=== PATIENT | male | born 1945 | race Caucasian/White ===

== ENCOUNTER 2020-02-22 13:42 | Outpatient (REF) | payer MEDICARE, SELFPAY ==
[2020-02-22 16:38] LABS: Estimated Average Glucose 151 mg/dL; Hemoglobin A1c % 6.9 %
[2020-02-22 16:52] LABS: Alanine Aminotransferase 54 U/L (0-40); Albumin Level 4.6 g/dL (3.5-5.0); Alkaline Phosphatase 91 U/L (39-117); Anion Gap 16 (12-20); Aspartate Amino Transferase 46 U/L (5-37); Bilirubin Total 0.8 mg/dL (0.0-1.0); Blood Urea Nitrogen 16 mg/dL (9-16); Carbon Dioxide 25 mmol/L (22-29); Chloride 100 mmol/L (96-108); Cholesterol 217 mg/dL; Estimated Glomerular Filt Rate > 60; Glucose Fasting 128 mg/dL (60-99); HDL Cholesterol 35 mg/dL; LDL Cholesterol Calculated 129 mg/dl; Potassium 4.2 mmol/l (3.3-5.1); Sodium 137 mmol/L (135-145); Total Protein 7.3 g/dL (6.5-8.0); Triglycerides 266 mg/dL
[2020-02-22 17:15] LABS: Microalbum/Creatinine Ratio Ur 36.5 ug/mg cr
[2020-02-22 18:41] LABS: PSA,Total (Free>4and<10) 6.67 ng/mL (0.00-4.00)
[2020-02-25 19:11] LABS: Free Prostate Spec Ag 1.8 ng/mL; Percent Free Prostate Spec Ag 25 % (calc) (>25); Prostate Specific Ag Total 7.1 ng/mL (< OR = 4.0)
== END 2020-02-22 13:43 | disposition home or self-care (01) ==
LOC: HO.HMGCLDS 13:42
PROVIDERS: PCP Internal Medicine; Visit Provider Internal Medicine
DX: E74.39 Other disorders of intestinal carbohydrate absorption (principal); R97.20 Elevated prostate specific antigen [PSA]; Z12.5 Encounter for screening for malignant neoplasm of prostate
CPT/HCPCS: 80053; 80061; 82043; 83036; 84153; 84154

== ENCOUNTER 2020-11-25 11:15 | Outpatient (REF) | payer MEDICARE, SELFPAY ==
--- NOTE | ~2020-11-25 | XR_ITS ---
EXAMINATION: XR SHOULDER, RIGHT XR SHOULDER, LEFT CLINICAL INFORMATION: Polymyalgia rheumatica. COMPARISON: None. TECHNIQUE: AP, Grashey, scapular Y, and axillary views of the right shoulder. AP, Grashey, and scapular Y views of the left shoulder. FINDINGS: Right Shoulder: Mild elevation of the right humeral head, which could indicate an underlying rotator cuff tear. Moderate acromioclavicular osteoarthritis with lateral subacromial spurring. Mild glenohumeral joint space narrowing with small marginal osteophytes. No osseous erosion. No acute fracture. Left Shoulder: Left shoulder arthroplasty. No evidence of hardware complication. Elevation of the humeral head, consistent with an underlying rotator cuff tendon tear. Moderate acromioclavicular osteoarthritis. XR/XR shoulder RT min 2V IMPRESSION: RIGHT SHOULDER: Moderate acromioclavicular osteoarthritis with subacromial spurring. Mild glenohumeral osteoarthritis. Elevation of the humeral head indicating an underlying rotator cuff tendon tear. LEFT SHOULDER: Left shoulder arthroplasty without evidence of hardware complication. Elevation of the humeral head consistent with an underlying rotator cuff tendon tear.
--- NOTE | ~2020-11-25 | XR_ITS ---
EXAMINATION: XR CERVICAL SPINE CLINICAL INFORMATION: Polymyalgia rheumatica. COMPARISON: None. TECHNIQUE: 3 views of the cervical spine were obtained. FINDINGS: The cervical lordosis is maintained. No acute fracture or subluxation. No loss of vertebral body height. Loss of intervertebral disc height with endplate osteophytes throughout the cervical spine, most prominent at C3-C4. Mild multilevel bilateral facet arthropathy. Normal atlantoaxial alignment. Unremarkable prevertebral soft tissues. XR/XR cervical spine 3V IMPRESSION: Prominent multilevel degenerative disc disease, most severe at C3-C4. Multilevel bilateral facet arthropathy.
--- NOTE | ~2020-11-25 | XR_ITS ---
EXAMINATION: XR SHOULDER, RIGHT XR SHOULDER, LEFT CLINICAL INFORMATION: Polymyalgia rheumatica. COMPARISON: None. TECHNIQUE: AP, Grashey, scapular Y, and axillary views of the right shoulder. AP, Grashey, and scapular Y views of the left shoulder. FINDINGS: Right Shoulder: Mild elevation of the right humeral head, which could indicate an underlying rotator cuff tear. Moderate acromioclavicular osteoarthritis with lateral subacromial spurring. Mild glenohumeral joint space narrowing with small marginal osteophytes. No osseous erosion. No acute fracture. Left Shoulder: Left shoulder arthroplasty. No evidence of hardware complication. Elevation of the humeral head, consistent with an underlying rotator cuff tendon tear. Moderate acromioclavicular osteoarthritis. XR/XR shoulder LT min 2V IMPRESSION: RIGHT SHOULDER: Moderate acromioclavicular osteoarthritis with subacromial spurring. Mild glenohumeral osteoarthritis. Elevation of the humeral head indicating an underlying rotator cuff tendon tear. LEFT SHOULDER: Left shoulder arthroplasty without evidence of hardware complication. Elevation of the humeral head consistent with an underlying rotator cuff tendon tear.
[2020-11-25 13:59] LABS: MANUAL DIFF FLAG NO
[2020-11-25 14:03] LABS: Basophils Percent Auto 0.5 % (0-2); Eosinophils Absolute Auto 0.2 X10*3/uL (0.0-0.4); Eosinophils Percent Auto 1.9 % (0-4); Hematocrit 47.2 % (42-52); Hemoglobin 16.1 g/dl (14.0-18.0); Imm Gran Abs Auto 0.03 X10*3/uL (0.00-0.03); Imm Gran Pct Auto 0.4 % (0.0-0.4); Lymphocytes Absolute Auto 1.9 X10*3/uL (1.2-4.9); Lymphocytes Percent Auto 22.9 % (20-40); Mean Corpuscular HGB Conc 34.1 g/dl (31.0-36.0); Mean Corpuscular Hemoglobin 30.3 pg (27.0-33.0); Mean Corpuscular Volume 88.7 fL (80-98); Mean Platelet Volume 10.1 fL (9.4-12.4); Monocytes Absolute Auto 0.6 X10*3/uL (0.1-1.2); Monocytes Percent Auto 7.4 % (2-11); Neutrophils Absolute Auto 5.7 X10*3/uL (2.0-8.3); Neutrophils Percent Auto 66.9 % (45-73); Platelet Count 274 X10*3/uL (160-400); Red Blood Count 5.32 X10*6/uL (4.60-5.80); Red Cell Distribution Width 12.3 % (11.0-16.0); White Blood Count 8.5 X10*3/uL (4.8-10.8)
[2020-11-25 14:46] LABS: Erythrocyte Sedimentation Rate 14 MM/HR (0-15)
[2020-11-25 14:49] LABS: Alanine Aminotransferase 38 U/L (0-40); Albumin Level 4.8 g/dL (3.5-5.0); Alkaline Phosphatase 100 U/L (39-117); Anion Gap 18 (12-20); Aspartate Amino Transferase 37 U/L (5-37); Bilirubin Total 0.5 mg/dL (0.0-1.0); Blood Urea Nitrogen 19 mg/dL (9-16); Calcium 10.1 mg/dL (8.4-10.2); Carbon Dioxide 21 mmol/L (22-29); Chloride 104 mmol/L (96-108); Estimated Glomerular Filt Rate > 60; Glucose Random 157 mg/dL (60-115); Potassium 4.2 mmol/L (3.3-5.1); Sodium 139 mmol/L (135-145); Total Protein 7.7 g/dL (6.5-8.0)
== END 2020-11-25 11:16 | disposition home or self-care (01) ==
LOC: HO.HMGCX 11:15
PROVIDERS: PCP Internal Medicine; Visit Provider Internal Medicine
DX: M35.3 Polymyalgia rheumatica (principal)
CPT/HCPCS: 36415; 72040; 73030; 80053; 85025; 85652; 86140

== ENCOUNTER 2021-01-01 08:17 | Outpatient (REF) | payer MEDICARE, SELFPAY ==
--- NOTE | ~2021-01-01 | XR_ITS ---
EXAMINATION: XR PELVIS CLINICAL INFORMATION: Hip pain COMPARISON: None TECHNIQUE: AP view of the pelvis. FINDINGS: Bone alignment is normal. No fracture or dislocation is seen. There is bilateral hip arthritis with joint space narrowing and osteophyte formation, left greater than right. Bones of the pelvis are unremarkable. There are degenerative changes of the lower lumbar spine. There is question of soft tissue calcifications over the the lower midline pelvis-pubic symphysis region. Soft tissues are otherwise unremarkable. XR/XR pelvis 1-2V IMPRESSION: Bilateral hip arthritis.
== END 2021-01-01 08:18 | disposition home or self-care (01) ==
LOC: HO.HOSX 08:17
PROVIDERS: Visit Provider Orthopaedic Surgery
DX: M54.16 Radiculopathy, lumbar region (principal); M12.811 Other specific arthropathies, not elsewhere classified, right shoulder; M12.812 Other specific arthropathies, not elsewhere classified, left shoulder
CPT/HCPCS: 72170; 99202

== ENCOUNTER 2022-01-20 14:27 | Outpatient (REF) | payer MEDICARE, SELFPAY ==
[2022-01-20 16:47] LABS: MANUAL DIFF FLAG NO
[2022-01-20 16:54] LABS: Basophils Percent Auto 0.5 % (0-2); Eosinophils Absolute Auto 0.2 X10*3/uL (0.0-0.4); Eosinophils Percent Auto 3.2 % (0-4); Hematocrit 47.5 % (42.0-52.0); Hemoglobin 16.4 g/dl (14.0-18.0); Imm Gran Abs Auto 0.02 X10*3/uL (0.00-0.03); Imm Gran Pct Auto 0.3 % (0.0-0.4); Lymphocytes Absolute Auto 2.2 X10*3/uL (1.2-4.9); Mean Corpuscular HGB Conc 34.5 g/dl (31.0-36.0); Mean Corpuscular Hemoglobin 30.4 pg (27.0-33.0); Mean Corpuscular Volume 88.1 fL (80.0-98.0); Mean Platelet Volume 10.3 fL (9.4-12.4); Monocytes Absolute Auto 0.5 X10*3/uL (0.1-1.2); Monocytes Percent Auto 7.2 % (2-11); Neutrophils Absolute Auto 4.5 x10*3/uL (2.0-8.3); Neutrophils Percent Auto 59.8 % (45-73); Platelet Count 212 X10*3/uL (160-400); Red Blood Count 5.39 X10*6/uL (4.60-5.80); Red Cell Distribution Width 12.7 % (11.0-16.0); White Blood Count 7.5 X10*3/uL (4.8-10.8)
[2022-01-20 17:06] LABS: Alanine Aminotransferase 39 U/L (0-40); Albumin Level 4.5 g/dL (3.5-5.0); Alkaline Phosphatase 111 U/L (39-117); Anion Gap 18 (12-20); Aspartate Amino Transferase 43 U/L (5-37); Bilirubin Total 0.7 mg/dL (0.0-1.0); Blood Urea Nitrogen 10 mg/dL (9-16); Calcium 9.9 mg/dL (8.4-10.2); Carbon Dioxide 23 mmol/L (22-29); Chloride 100 mmol/L (96-108); Cholesterol 212 mg/dL; Estimated Glomerular Filt Rate > 60; Glucose Fasting 137 mg/dL (60-99); HDL Cholesterol 35 mg/dL; LDL Cholesterol Calculated 117 mg/dl; Potassium 4.1 mmol/L (3.3-5.1); Sodium 137 mmol/L (135-145); Total Protein 7.2 g/dL (6.5-8.0); Triglycerides 303 mg/dL
[2022-01-20 17:30] LABS: Thyroid Stimulating Hormone 1.27 uIU/mL (0.32-4.0); Vitamin D 25-OH Total 37.1 ng/mL (>30)
== END 2022-01-20 14:28 | disposition home or self-care (01) ==
LOC: HO.HMGCLDS 14:27
PROVIDERS: PCP Internal Medicine; Visit Provider Internal Medicine
DX: I48.0 Paroxysmal atrial fibrillation (principal); E66.09 Other obesity due to excess calories
CPT/HCPCS: 36415; 80053; 80061; 82306; 84443; 85025

== ENCOUNTER 2023-07-29 14:48 | Outpatient (REF) | payer MEDICARE, SELFPAY ==
[2023-07-29 16:06] LABS: MANUAL DIFF FLAG NO
[2023-07-29 16:30] LABS: Basophils Percent Auto 0.3 % (0-2); Eosinophils Absolute Auto 0.2 X10*3/uL (0.0-0.4); Eosinophils Percent Auto 2.6 % (0-4); Hematocrit 49.7 % (42.0-52.0); Hemoglobin 17.2 g/dl (14.0-18.0); Imm Gran Abs Auto 0.03 X10*3/uL (0.00-0.03); Imm Gran Pct Auto 0.4 % (0.0-0.4); Lymphocytes Percent Auto 27.4 % (20-40); Mean Corpuscular HGB Conc 34.6 g/dl (31.0-36.0); Mean Corpuscular Hemoglobin 29.9 pg (27.0-33.0); Mean Corpuscular Volume 86.4 fL (80.0-98.0); Mean Platelet Volume 10.5 fL (9.4-12.4); Monocytes Absolute Auto 0.5 X10*3/uL (0.1-1.2); Monocytes Percent Auto 6.9 % (2-11); Neutrophils Absolute Auto 4.5 x10*3/uL (2.0-8.3); Neutrophils Percent Auto 62.4 % (45-73); Platelet Count 200 X10*3/uL (160-400); Red Blood Count 5.75 X10*6/uL (4.60-5.80); Red Cell Distribution Width 12.9 % (11.0-16.0); White Blood Count 7.2 X10*3/uL (4.8-10.8)
[2023-07-29 16:40] LABS: Appearance Urine Clear; Color Urine Yellow; Glucose Urine UA Negative (Negative); Leukocyte Esterase Urine Negative (Negative); Nitrite Urine Negative (Negative); PH 5.5 (5.0-9.0); Specific Gravity - Urine 1.025 (1.005-1.025); UMIC TRIGGER UA YES; Urine Blood Negative (Negative); Urine Ketones 15 mg/dL (Negative); Urine Protein 30 (1+) mg/dL (Neg-Trace)
[2023-07-29 16:43] LABS: Bacteria Urine None Seen (None Seen); Hyaline Casts Urine 0-2 /LPF (0-2); RBC Urine 0-2 /HPF (0-2); WBC Urine 0-5 /HPF (0-5)
[2023-07-29 17:01] LABS: Estimated Average Glucose 194 mg/dL; Hemoglobin A1c % 8.4 % (<6.0)
[2023-07-29 17:29] LABS: PSA,Total (Free>4and<10) 6.06 ng/mL (0.00-4.00)
[2023-07-29 17:30] LABS: Alanine Aminotransferase 33 U/L (0-40); Albumin Level 4.4 g/dL (3.5-5.0); Alkaline Phosphatase 87 U/L (39-117); Anion Gap 11 (12-20); Aspartate Amino Transferase 39 U/L (5-37); Blood Urea Nitrogen 12 mg/dL (9-16); Calcium 9.4 mg/dL (8.4-10.2); Carbon Dioxide 26 mmol/L (22-29); Chloride 106 mmol/L (96-108); Cholesterol 203 mg/dL (<200); Estimated Glomerular Filt Rate > 60; Glucose Fasting 146 mg/dL (60-99); HDL Cholesterol 38 mg/dL (>40); LDL Cholesterol Calculated 136 mg/dL (<100); Potassium 3.4 mmol/L (3.3-5.1); Sodium 140 mmol/L (135-145); Thyroid Stimulating Hormone 1.32 uIU/mL (0.32-4.0); Total Protein 7.2 g/dL (6.5-8.0); Triglycerides 146 mg/dL (<150); Vitamin D 25-OH Total 43.3 ng/mL (>30)
[2023-07-29 17:38] LABS: Creatinine Urine 163.97 mg/dL; Microalbum/Creatinine Ratio Ur 66.4 ug/mg cr (<30)
[2023-08-01 10:54] LABS: Free Prostate Spec Ag 1.6 ng/mL; Percent Free Prostate Spec Ag 30 % (calc) (>25); Prostate Specific Ag Total 5.4 ng/mL (< OR = 4.0)
== END 2023-07-29 14:49 | disposition home or self-care (01) ==
LOC: HO.HMGCLDS 14:48
PROVIDERS: PCP Internal Medicine; Visit Provider Internal Medicine
DX: Z12.5 Encounter for screening for malignant neoplasm of prostate (principal); E11.65 Type 2 diabetes mellitus with hyperglycemia; E66.09 Other obesity due to excess calories; R97.20 Elevated prostate specific antigen [PSA]; I48.0 Paroxysmal atrial fibrillation
CPT/HCPCS: 36415; 80053; 80061; 81001; 82043; 82306; 82570; 83036; 84153; 84154; 84443; 85025

== ENCOUNTER 2023-10-19 11:20 | Outpatient (AMB) | payer MEDICARE, SELFPAY ==
--- NOTE | 2023-10-19 11:28 | MHC.OFFVIS ---
Intake Visit Reasons: elevated PSA Intake Note: Patient is present for elevated PSA Urology Medication:none Antibiotic Allergy:none Blood Thinner:none Transformation Lead Required: No Allergies adhesive tape Adverse Reaction (Verified 10/19/23 14:53) blisters Medication List - Last Reconciled 10/19/23 by ROSA M Lorenzo- lisinopril 10 mg PO DAILY naproxen sodium (Aleve) 220 mg PO Q8H HPI Comments Details: Cristiano is a 77-year-old male patient of Dr. Us. He has a past medical history of enlarged prostate, bladder stones, nephrolithiasis, and hypertension. He presents to the office today as a new patient for his ongoing urological issues. He reports previously following up with [facility] for many years and has a longstanding history of multiple surgical interventions for his prostate, nephrolithiasis, as well as his bladder stones. He reports having had a previous TURP with Dr. Reyna approximately 4-5 years ago at which time prostatic tissue was sent for testing and he was told tissue was benign and he did not have prostate cancer. He reports most recently having a surgical intervention for bladder stones. He discusses his frustration with the office and always seeing mid-level providers. He discusses at length his preference in a medical provider. He currently denies any bothersome urinary issues or concerns. He discusses wanting to establish urological care here with Dr. Kee as well as Dr. Bergman. Discussed obtaining retroperitoneal ultrasound for further assessment evaluation given patient's longstanding history of bladder stones, enlarged prostate, and nephrolithiasis. He is agreeable. In office urinalysis results reviewed with the patient today. He otherwise offers no other issues or concerns at this time. In review of patient's chart it appears PSAs are as follows: 11/28 7.7, 02/28 6.7 % free PSA 25%, 02/28 7.1, 08/02 6.1, 08/02 5.4 % free PSA 30%. Previous urology records reviewed it appears patient was last seen by [facility] October of 2022. He underwent a TURP and laser cystolitholapaxy in 2014 and was found in 2021 have recurrent bladder calculi and was to undergo laser cystolitholapaxy but he did not show for his appointment. He then presented to [facility] with gross hematuria and difficulty voiding at which time he was brought to the OR by Dr. Mathews and found to have multiple stones in his prostatic urethra and bladder that were causing an obstruction. They were removed by a laser cystolitholapaxy June of 2022. The prostatic urethra was widely patent and no tumors were seen on cystoscopy. Previous urological surgical history includes a cystoscopy with fragmentation of bladder calculus October of 2014, therapeutic cystoscopy with ureteroscopy and manipulation of calculus on the right September of 2009, and transurethral resection of the prostate October of 2014 with benign prostate tissue. [facility] Medical History Hypertension Surgical History (Updated 01/01/21 @ 09:52 by Julissa Escalante CMA) History of prostate surgery Social History (Updated 01/01/21 @ 09:52 by Julissa Escalante CMA) Current occupational status: retired Review of Systems Const All systems reviewed & are unremarkable except as noted in HPI and below Physical Exam Const General: cooperative, healthy appearing, comfortable, no acute distress, well developed, alert and awake Orientation/consciousness: patient oriented x3 Limitations: no limitations HEENT Head: Yes normal to inspection, Yes normocephalic and Yes atraumatic Ears: hearing grossly normal bilaterally Eyes General: appearance normal, both eyes and all related structures Neck Neck: Yes normal visual inspection and Yes trachea midline Chest Chest palpation & inspection: normal inspection of the chest Resp Effort & Inspection: normal respiratory effort and able to speak in complete sentences Cardio Rate: regular rate GI Inspection: Yes normal to inspection General: Yes no CVA tenderness Back/Spine/Pelvis Back: no CVA tenderness Skin General skin exam: no rashes or lesions noted Neuro General: patient oriented x3 Extrem General: Yes normal to inspection Psych Appearance: grossly normal and well kempt Mental Status: mental status grossly normal Speech and movement: Normal speech and movement present and Clear speech present Affect: normal affect Attitude: cooperative Thought process: Normal thought process present Thought content: Normal thought content present Insight: Fair insight present (Psych) Judgement: Fair judgement present (Psych) Results AMB Urinalysis, Automated UA Leukoctes 0 Tavon/uL Last Edit by SOURAV Forbes on 10/19/23 11:42 UA Nitrite Negative Last Edit by SOURAV Forbes on 10/19/23 11:42 UA Urobilinogen 0.2 mg/dL Last Edit by SOURAV Forbes on 10/19/23 11:42 UA Protein 30 mg/dL Last Edit by Pierre [facility]te [facility] on 10/19/23 11:42 UA pH 5.5 Last Edit by Pierre Whyte [facility] on 10/19/23 11:42 UA Blood 0 Mk/uL Last Edit by Pierre Whyte [facility] on 10/19/23 11:42 UA Specific Lou[place] 1.025 Last Edit by Pierre Whyte [facility] on 10/19/23 11:42 UA Ketone Positive Last Edit by Pierre Whyte [facility] on 10/19/23 11:42 UA Bilirubin 0 mg/dL Last Edit by Pierre Whyte [facility] on 10/19/23 11:42 UA Glucose 0 mg/dL Last Edit by Pierre Whyte [facility] on 10/19/23 11:42 Results Reviewed Results Reviewed: Laboratory Last Values Urine pH (Auto) 5.5 10/19/23 11:41 Specific Louann (Auto) 1.025 10/19/23 11:41 Urine Protein (Auto) 30 mg/dL 10/19/23 11:41 Glucose (UA)(Auto) 0 mg/dL 10/19/23 11:41 Urine Ketones (Auto) Positive 10/19/23 11:41 Urine Blood (Auto) 0 Mk/uL 10/19/23 11:41 Urine Nitrite (Auto) Negative 10/19/23 11:41 Urine Bilirubin (Auto) 0 mg/dL 10/19/23 11:41 Urine Urobilinogen (Auto) 0.2 mg/dL 10/19/23 11:41 Leukocyte Esterase (Auto) 0 Tavon/uL 10/19/23 11:41 Assessment & Plan Assessment & Plan (1) Enlarged prostate: Code(s): N40.0 - Benign prostatic hyperplasia without lower urinary tract symptoms Category: Medical (2) Bladder stones: Code(s): N21.0 - Calculus in bladder Category: Medical (3) Nephrolithiasis: Code(s): N20.0 - Calculus of kidney Category: Medical Plan In office urinalysis results reviewed with the patient today; as noted above. Previous urological notes were reviewed. Will obtain retroperitoneal ultrasound for further assessment evaluation. Discussed at length potential causes for elevated PSA as well as further workup. Discussed possible finasteride in the setting of enlarged prostate. Patient currently denies any bothersome urinary issues or concerns. He reports be happy with current voiding parameters. Follow-up in 1-3 months with imaging to be completed prior; or sooner with any issues, concerns, and or questions. Orders: Orders AMB Urinalysis Automated Today Z13.9 - Encounter for screening, unspecified US retroperitoneal comp Today N20.0 - Calculus of kidney, N21.0 - Calculus in bladder, N40.0 - Benign prostatic hyperplasia without lower urinary tract symptoms Patient Instructions: The patient had an opportunity to ask questions regarding the treatment plan. All questions were answered. Physical exam, labs, and imaging were discussed and reviewed in detail. As well as risks, benefits, and discussion of treatment choices. No major barriers to understanding were identified. The patient expressed understanding and agreement with the above treatment plan. The patient was made aware they should contact our office by phone for worsening of their current condition, the appearance of new symptoms, or with any questions or concerns. Compliance is encouraged with any medications and follow up testing that is ordered. It is a privilege to be allowed the opportunity to participate in? your urological care.? Again, if you have any questions or concerns If you have any questions or concerns please do not hesitate to contact me. The office is [phone]. This note is constructed using voice recognition software. While every effort has been made to ensure accuracy deck officer errors may have been included. Yours sincerely, MAMADOU Lorenzo Coding Level of Care Code New Pt Level 4 (87152) Diagnoses Enlarged prostate N40.0 Bladder stones N21.0 Nephrolithiasis N20.0
== END 2023-10-19 12:04 | disposition home or self-care (01) ==
PROVIDERS: PCP Internal Medicine; Visit Provider Nurse Practitioner Family
DX: N40.0 Benign prostatic hyperplasia without lower urinary tract symptoms (principal); N21.0 Calculus in bladder; N20.0 Calculus of kidney; Z13.9 Encounter for screening, unspecified
CPT/HCPCS: 99204

== ENCOUNTER → 2023-10-19 11:20 | Outpatient (BNVA) | payer MEDICARE, SELFPAY | PROVIDERS: PCP Internal Medicine; Visit Provider Nurse Practitioner Family | DX: N40.0 Benign prostatic hyperplasia without lower urinary tract symptoms (principal); N21.0 Calculus in bladder; N20.0 Calculus of kidney | CPT/HCPCS: 81003; 99202 ==

== ENCOUNTER 2023-11-03 13:53 | Outpatient (REF) | payer MEDICARE, SELFPAY ==
[2023-11-03 16:16] LABS: Appearance Urine Clear; Color Urine Yellow; Glucose Urine UA Negative (Negative); Leukocyte Esterase Urine Negative (Negative); Nitrite Urine Negative (Negative); PH 5.5 (5.0-9.0); Specific Gravity - Urine 1.015 (1.005-1.025); Urine Blood Negative (Negative); Urine Ketones Trace mg/dL (Negative); Urine Protein Negative (Neg-Trace)
[2023-11-03 16:19] LABS: Bacteria Urine None Seen (None Seen); Hyaline Casts Urine 0-2 /LPF (0-2); RBC Urine 0-2 /HPF (0-2); Squamous Epithelial Cell Urine 0-2 /HPF (0-2); WBC Urine 0-5 /HPF (0-5)
[2023-11-03 16:30] LABS: Alanine Aminotransferase 29 U/L (0-40); Albumin Level 4.3 g/dL (3.5-5.0); Alkaline Phosphatase 75 U/L (39-117); Anion Gap 17 (12-20); Aspartate Amino Transferase 29 U/L (5-37); Bilirubin Direct 0.3 mg/dL (0.0-0.5); Bilirubin Total 0.9 mg/dL (0.0-1.0); Blood Urea Nitrogen 12 mg/dL (9-16); Carbon Dioxide 22 mmol/L (22-29); Chloride 103 mmol/L (96-108); Cholesterol 181 mg/dL (<200); Estimated Glomerular Filt Rate > 60; Glucose Fasting 104 mg/dL (60-99); HDL Cholesterol 36 mg/dL (>40); LDL Cholesterol Calculated 103 mg/dL (<100); Potassium 4.1 mmol/L (3.3-5.1); Sodium 138 mmol/L (135-145); Total Protein 7.2 g/dL (6.5-8.0); Triglycerides 211 mg/dL (<150)
[2023-11-03 16:49] LABS: Estimated Average Glucose 131 mg/dL; Hemoglobin A1c % 6.2 % (<6.0)
[2023-11-03 16:55] LABS: Creatinine Urine 101.73 mg/dL; Microalbum/Creatinine Ratio Ur 29.4 ug/mg cr (<30)
== END 2023-11-03 13:54 | disposition home or self-care (01) ==
LOC: HO.HMGCLDS 13:53
PROVIDERS: PCP Internal Medicine; Visit Provider Internal Medicine
DX: E11.65 Type 2 diabetes mellitus with hyperglycemia (principal)
CPT/HCPCS: 36415; 80048; 80061; 80076; 81001; 82043; 82570; 83036

== ENCOUNTER 2023-11-15 11:21 | Outpatient (REF) | payer MEDICARE, SELFPAY ==
--- NOTE | ~2023-11-15 | US_ITS ---
EXAMINATION: US RETROPERITONEAL COMPLETE (RENAL) CLINICAL INFORMATION: Calculus of kidney. COMPARISON: None available. TECHNIQUE: Real-time imaging of the kidneys and bladder. FINDINGS: RIGHT KIDNEY: 11.3 x 5.5 x 5.8 cm (SAG x AP x TRV). The kidney is normal in size, contour, and echogenicity. Renal cortical thickness is normal. 5 mm nonobstructing mid pole calculus. No hydronephrosis. There is a 2.6 cm lower pole cyst which contains a thin avascular septation. LEFT KIDNEY: 12.4 x 4.4 x 4.7 cm (SAG x AP x TRV). The kidney is normal in size, contour, and echogenicity. Renal cortical thickness is normal. No calculi or focal parenchymal lesions. No hydronephrosis. BLADDER: Well distended and normal. Bilateral ureteral jets are demonstrated. Prevoid bladder volume is 157 mL. Postvoid bladder volume is 34.4 mL. PROSTATE GLAND: 4.6 x 4.9 x 6.2 cm, volume 74 mL. US/US retroperitoneal comp IMPRESSION: 1. 5 mm nonobstructing right renal calculus. No left-sided renal calculi. No hydronephrosis of either kidney. 2. Mildly complex 2.6 cm right renal cyst. 3. Enlarged prostate gland. 4. Prominent post void bladder residual of 35 mL. Electronically signed by: Kenny Harvey MD 12/10/2023 09:23 AM EDT Workstation: [employer]
== END 2023-11-15 11:22 | disposition home or self-care (01) ==
LOC: HO.HMGCX 11:21
PROVIDERS: PCP Internal Medicine; Visit Provider Nurse Practitioner Family
DX: N20.0 Calculus of kidney (principal); N20.1 Calculus of ureter; N40.0 Benign prostatic hyperplasia without lower urinary tract symptoms
CPT/HCPCS: 76770

== ENCOUNTER 2023-12-09 10:53 | Outpatient (REF) | payer MEDICARE, SELFPAY ==
[2023-12-09 16:14] LABS: Urine Cytology See Pathology rpt
== END 2023-12-09 10:54 | disposition home or self-care (01) ==
LOC: HO.LAB 10:53
PROVIDERS: PCP Internal Medicine; Visit Provider Urology
DX: R31.0 Gross hematuria (principal); N40.0 Benign prostatic hyperplasia without lower urinary tract symptoms; N20.0 Calculus of kidney; N21.0 Calculus in bladder
CPT/HCPCS: 81003; 88112; 99212

== ENCOUNTER 2023-12-09 10:53 | Outpatient (AMB) | payer MEDICARE, SELFPAY ==
--- NOTE | 2023-12-09 11:00 | MHC.OFFVIS ---
Intake Visit Reasons: 1m/elevated PSA/US(US 11/14) Intake Note: Patient is present for 1M F/U elevated PSA Urology Medication:none Antibiotic Allergy:none Blood Thinner:none Pill Maker Required: No Allergies adhesive tape Adverse Reaction (Verified 12/09/23 11:01) blisters HPI Comments Details: 12/09/23--Cristiano is a 78-year-old male who is here in follow-up, BPH and elevated PSA, history of renal stones and bladder stones. Reviewed PSA-07/29/2023---6.06 ng/mL. Patient had previous TURP. Cristiano states he does not have any difficulty when voiding he has had episodes of voiding blood clots. I have reviewed preliminary renal ultrasound 11/15/2023--right kidney 2.6 cm complex cyst, 5 mm stone. Estimated prostate volume 73.9. I will start finasteride 5 mg daily follow-up for office cystoscopy, urine for cytology. The patient had questions regarding his recurrent kidney stones. Discussed that I would order a 24 hour urine collection in the future for further evaluation. Review of chart: 10/19/23--Cristiano is a 77-year-old male patient of Dr. Us. He has a past medical history of enlarged prostate, bladder stones, nephrolithiasis, and hypertension. He presents to the office today as a new patient for his ongoing urological issues. He reports previously following up with [facility] for many years and has a longstanding history of multiple surgical interventions for his prostate, nephrolithiasis, as well as his bladder stones. He reports having had a previous TURP with Dr. Reyna approximately 4-5 years ago at which time prostatic tissue was sent for testing and he was told tissue was benign and he did not have prostate cancer. He reports most recently having a surgical intervention for bladder stones. He discusses his frustration with the office and always seeing mid-level providers. He discusses at length his preference in a medical provider. He currently denies any bothersome urinary issues or concerns. He discusses wanting to establish urological care here with Dr. Kee as well as Dr. Bergman. Discussed obtaining retroperitoneal ultrasound for further assessment evaluation given patient's longstanding history of bladder stones, enlarged prostate, and nephrolithiasis. He is agreeable. In office urinalysis results reviewed with the patient today. He otherwise offers no other issues or concerns at this time. In review of patient's chart it appears PSAs are as follows: 11/28 7.7, 02/28 6.7 % free PSA 25%, 02/28 7.1, 08/02 6.1, 08/02 5.4 % free PSA 30%. Previous urology records reviewed it appears patient was last seen by [facility] October of 2022. He underwent a TURP and laser cystolitholapaxy in 2014 and was found in 2021 have recurrent bladder calculi and was to undergo laser cystolitholapaxy but he did not show for his appointment. He then presented to [facility] with gross hematuria and difficulty voiding at which time he was brought to the OR by Dr. Mathews and found to have multiple stones in his prostatic urethra and bladder that were causing an obstruction. They were removed by a laser cystolitholapaxy June of 2022. The prostatic urethra was widely patent and no tumors were seen on cystoscopy. Previous urological surgical history includes a cystoscopy with fragmentation of bladder calculus October of 2014, therapeutic cystoscopy with ureteroscopy and manipulation of calculus on the right September of 2009, and transurethral resection of the prostate October of 2014 with benign prostate tissue. [facility] Medical History Hypertension Surgical History History of prostate surgery Social History Current occupational status: retired Review of Systems Const All systems reviewed & are unremarkable except as noted in HPI and below Reports no additional complaints Eyes Reports no additional complaints ENT Reports no additional complaints Card Reports no additional complaints Resp Reports no additional complaints GI Reports no additional complaints Reports as per HPI Musc Reports no additional complaints Skin/Breast Reports system reviewed and no additional complaints, except as documented Neuro Reports no additional complaints Psych Reports no additional complaints Endo Reports no additional complaints Armando/Lymph Reports no additional complaints Aller/Immun Reports no additional complaints Results AMB Urinalysis, Automated UA Leukoctes 0 Tavon/uL Last Edit by SOURAV Forbes on 12/09/23 11:36 UA Nitrite Negative Last Edit by SOURAV Forbes on 12/09/23 11:36 UA Urobilinogen 0.2 mg/dL Last [facility] on 12/09/23 11:36 UA Protein 15 mg/dL Last Edit [facility] on 12/09/23 11:36 UA pH 5.5 Last Edit by Pierre Whyte [facility] on 12/09/23 11:36 UA Blood 10 Mk/uL Last Edit by Pierre Whyte [facility] on 12/09/23 11:36 UA Specific [place] 1.030 Last Edit by Pierre Whyte [facility] on 12/09/23 11:36 UA Ketone Negative Last Edit by Pierre Whyte [facility] on 12/09/23 11:36 UA Bilirubin 0 mg/dL Last Edit by Pierre Whyte [facility] on 12/09/23 11:36 UA Glucose 0 mg/dL Last Edit by Pierre Whyte [facility] on 12/09/23 11:36 Results Reviewed Results Reviewed: Laboratory Last Values Urine pH (Auto) 5.5 12/09/23 11:35 Specific [place] (Auto) 1.030 12/09/23 11:35 Urine Protein (Auto) 15 mg/dL 12/09/23 11:35 Glucose (UA)(Auto) 0 mg/dL 12/09/23 11:35 Urine Ketones (Auto) Negative 12/09/23 11:35 Urine Blood (Auto) 10 Mk/uL 12/09/23 11:35 Urine Nitrite (Auto) Negative 12/09/23 11:35 Urine Bilirubin (Auto) 0 mg/dL 12/09/23 11:35 Urine Urobilinogen (Auto) 0.2 mg/dL 12/09/23 11:35 Leukocyte Esterase (Auto) 0 Tavon/uL 12/09/23 11:35 Assessment & Plan Assessment & Plan (1) Enlarged prostate: Code(s): N40.0 - Benign prostatic hyperplasia without lower urinary tract symptoms Category: Medical (2) Bladder stones: Code(s): N21.0 - Calculus in bladder Category: Medical (3) Nephrolithiasis: Code(s): N20.0 - Calculus of kidney Category: Medical (4) Gross hematuria: Code(s): R31.0 - Gross hematuria Category: Medical Plan Start finasteride 5 mg daily follow-up for office cystoscopy, urine for cytology. Discussed that I would order a 24 hour urine collection in the future for further evaluation. Orders: Orders AMB Urinalysis Automated 12/09/23 Z13.9 - Encounter for screening, unspecified Urine Cytology 12/09/23 R31.0 - Gross hematuria Medications: New finasteride (Proscar) 5 mg PO DAILY 30 tabs 3RF 30 days metformin 1,000 mg PO DAILY 1 tab 0RF Patient Instructions: The patient had an opportunity to ask questions regarding treatment plan. The patient expressed understanding and agreement with the above treatment plan. The patient is aware they should contact our office by phone for worsening of their current condition or the appearance of new symptoms. Compliance is encouraged with any medications and followup testing that is ordered. It is a privilege to be allowed the opportunity to participate in the urologic care of your patient. If you have any questions or concerns regarding treatment for the above conditions please do not hesitate to contact me. The office telephone contact is [phone]. This note is constructed in part using voice recognition software. While every effort has been made to ensure accuracy blocking machine operator errors may have been included. Yours sincerely, Aubree Madrid MD Coding Level of Care Code Est Pt Level 4 (71352) Diagnoses Enlarged prostate N40.0 Bladder stones N21.0 Nephrolithiasis N20.0 Gross hematuria R31.0
== END 2023-12-09 11:39 | disposition home or self-care (01) ==
PROVIDERS: PCP Internal Medicine; Visit Provider Urology
DX: N40.0 Benign prostatic hyperplasia without lower urinary tract symptoms (principal); N21.0 Calculus in bladder; N20.0 Calculus of kidney; R31.0 Gross hematuria
CPT/HCPCS: 99214

== ENCOUNTER 2024-06-06 11:33 | Outpatient (AMB) | payer MEDICARE, SELFPAY ==
--- NOTE | 2024-06-06 11:45 | A.OFFPC_ITS ---
Vital Signs 06/06/24 11:50 Height 5 ft 9.75 in Weight 204 lb BMI 29.5 BP 122/80 Blood Pressure Location Rt brachial Pulse 78 Pulse Source Pulse Oximeter Temp 97.3 F Pulse Oximetry (%) 98 Intake Visit Reasons: 3 month follow up Intake Note: no other issues Allergies adhesive tape Adverse Reaction (Verified 06/06/24 12:20) blisters Medication List - Last Reconciled 06/06/24 by Bianca Stroud PA-C apixaban 5 mg PO BID atorvastatin 40 mg PO DAILY cholecalciferol (vitamin D3) 50 mcg PO DAILY magnesium 200 mg PO DAILY metformin 1,000 mg PO BID metoprolol tartrate 25 mg PO BID vitamin B complex 1 cap PO DAILY HPI 3 month follow up HPI Details A 78-year-old male presenting for 3 month follow-up for his chronic medical conditions. Patient has a history of hypertension currently on metoprolol 25 mg daily. Patient has a history of hypercholesterolemia was being prescribed atorvastatin 40 mg 1 tablet daily although reports over the past few months has not been taking this medication. Patient reports chronic knee and lower back pain. He reports a history of renal lithiasis and ureteral stones along with BPH status post TURP procedure. Has not followed up with urology since November of 2023. Has an essential tremor that is stable at this time. Had 1 episode of paroxysmal atrial fibrillation many years ago when he had hematuria although after a follow-up EKG by Dr. Us the atrial fibrillation was not seen on EKG. Although patient reports [facility] diagnosed with atrial fibrillation he has been on metoprolol since then. Patient also on Eliquis 5 mg p.o. b.i.d.. Patient has a history of diabetes type 2 currently on metformin 1000 mg p.o. b.i.d. with an A1c level of 6.2 on 11/03/2023. Patient has a history of vitamin-D deficiency currently taking vitamin-D 50 mcg daily. Patient currently taking magnesium 200 mg daily. Patient taking vitamin-B complex daily. Patient had an elevated PSA level in July of 2023. Was not seen in follow-up for this. Patient lives alone. Able to perform all his ADLs. Able to drive during the night. Does not have any trouble seeing at nighttime or hearing at nighttime when he is driving. Denies any recent falls. Denies any other symptoms complaints concerns at this time. [facility] Medical History Heart murmur PSA elevation Encounter for colorectal cancer screening using Cologuard test (~08/31/22) Type 2 diabetes mellitus Paroxysmal atrial fibrillation Essential tremor Tubular adenoma BPH (benign prostatic hyperplasia) Ureteral stone History of rib fracture Lumbar herniated disc [place]-Schlatter's disease Mild hypercholesterolemia Hypertension Surgical History History of colonoscopy (~04/20/16) History of prostate surgery Social History Current occupational status: retired Physical exam (Primary Care) Vital Signs: Last Vital Signs Temp 97.3 F 06/06/24 11:50 Pulse 78 06/06/24 11:50 BP 122/80 06/06/24 11:50 Pulse Ox 98 06/06/24 11:50 Care Plan Goal for BP management: 130/80 at goal BMI result Body Mass Index 29.5 BMI Assessment/Plan discussion: High BMI High, discussed plan: lifestyle, weight reduction, dietary, physical activity and alcohol moderation Const Other: Appearance: Alert. Oriented X3. No acute distress. Head: Normal external exam. Normocephalic. Atraumatic. Eyes: Conjunctiva and sclera normal. Eyelids normal. ENT: MMM. Normal voice. Neck: Normal inspection. Neck supple. FROM. No adenopathy. Thyroid Normal. No meningeal signs. No neck mass noted. CVS: Normal heart rate and rhythm. Heart sound normal. Pulses normal throughout. Murmur was heard. No rales/gallops. Respiratory: No respiratory distress. Painless inspiration. Breath sounds normal. No wheezes/rales/rhonchi noted. Chest nontender. No crepitus is noted. No accessory muscle usage noted or decreased air movement noted. No signs of trauma. Abdomen: Soft and nontender. Nondistended. No guarding. No rigidity. Bowel sounds normal in all 4 quadrants. No distention noted. No organomegaly noted. No visible injury noted. No rebound tenderness. Back: Full range of motion noted. Skin: Skin warm and dry. Normal skin color. Normal skin turgor. No rashes/lesions/lacerations noted. Extremities: No lower extremity edema. No calf tenderness is noted. Extremities exhibit normal range of motion and nontender. Neuro: Oriented X 3. Moving all extremities. Normal steady gait. No focal neuro deficits noted. Vascular: + radial pulses b/l. Normal cap refill. No cyanosis noted. Coding Level of Care Code New Pt Level 4 (45093) Complex EM visit Add On G2211 Diagnoses Type 2 diabetes mellitus E11.9 Paroxysmal atrial fibrillation I48.0 Essential tremor G25.0 BPH (benign prostatic hyperplasia) N40.0 Lumbar herniated disc M51.26 Mild hypercholesterolemia E78.00 Hypertension I10 PSA elevation R97.20 Assessment & Plan Assessment & Plan (1) Type 2 diabetes mellitus: Code(s): E11.9 - Type 2 diabetes mellitus without complications Category: Medical Plan: Goal A1c less than 7.0. A1c on 11/03/2023 6.2. Patient currently on metformin 1000 mg p.o. b.i.d.. Condition is chronic and stable will continue to monitor and keep current regimen. (2) Paroxysmal atrial fibrillation: Code(s): I48.0 - Paroxysmal atrial fibrillation Category: Medical Plan: Patient currently on Eliquis 5 mg p.o. b.i.d., metoprolol 25 mg p.o. b.i.d.. Condition is chronic and stable continue to monitor. (3) Essential tremor: Code(s): G25.0 - Essential tremor Category: Medical Plan: Condition is chronic and stable continue to monitor (4) BPH (benign prostatic hyperplasia): Comment: s/p TURP Code(s): N40.0 - Benign prostatic hyperplasia without lower urinary tract symptoms Category: Medical Plan: Condition is chronic and stable since TURP procedure patient urinating regularly without any difficulties. Will continue to monitor (5) Lumbar herniated disc: Code(s): M51.26 - Other intervertebral disc displacement, lumbar region Category: Medical Plan: Condition is chronic and stable continue to monitor. (6) Mild hypercholesterolemia: Code(s): E78.00 - Pure hypercholesterolemia, unspecified Category: Medical Plan: LDL goal <70 due to patient has a history of diabetes. Last LDL was 104 on 11/03/2023. Patient instructed to restart his atorvastatin 40 mg daily as previously prescribed. Condition is chronic and stable continue to monitor. (7) Hypertension: Code(s): I10 - Essential (primary) hypertension Category: Medical Plan: Blood pressure goal less than 130/80. Blood pressure at goal today. Patient to continue metoprolol 25 mg p.o. b.i.d.. Condition is chronic and stable continue to monitor. (8) PSA elevation: Code(s): R97.20 - Elevated prostate specific antigen [PSA] Category: Medical Plan: Patient noted to have an elevated PSA level in July of 2023 has not followed up with this. Will refer to Urology at this time and have repeat PSA levels. Condition is chronic and stable continue to monitor. Plan For the patient's hypertension patient should continue metoprolol 25 mg p.o. b.i.d. For the patient's paroxysmal atrial fibrillation he should continue Eliquis 5 mg p.o. b.i.d. and metoprolol 25 mg p.o. b.i.d. For the patient's hyperlipidemia/hypercholesterolemia patient should continue and restart atorvastatin 40 mg daily For patient vitamin-D deficiency patient should continue vitamin-D supplement 50 mcg daily. Patient to follow-up with cardiology for murmur heard on exam today Patient to follow-up with urology for history of elevated PSA level 07/2023 Patient to have fasting labs before his next 6 month follow-up appointment Patient to follow-up in 6 months Orders: Orders Hemoglobin A1c Today Bianca Stroud PA-C Z00.00 - Encounter for general adult medical examination without abnormal findings Vitamin D 25-OH Total Today Bianca Stroud PA-C Z00.00 - Encounter for general adult medical examination without abnormal findings TSH reflex Free T4 Today Bianca Stroud PA-C Z00.00 - Encounter for general adult medical examination without abnormal findings C Reactive Protein Today Bianca Stroud PA-C Z00.00 - Encounter for general adult medical examination without abnormal findings Complete Blood Count Auto Diff Today Bianca Struod PA-C Z00.00 - Encounter for general adult medical examination without abnormal findings Comprehensive [place]. Panel Fast Today Bianca Stroud PA-C Z00.00 - Encounter for general adult medical examination without abnormal findings Lipid Panel Today Bianca Stroud PA-C Z00.00 - Encounter for general adult medical examination without abnormal findings Liver Panel Today Bianca Stroud PA-C Z00.00 - Encounter for general adult medical examination without abnormal findings Magnesium Today Bianca Stroud PA-C Z00.00 - Encounter for general adult medical examination without abnormal findings Vitamin B1 Today Bianca Stroud PA-C Z00.00 - Encounter for general adult medical examination without abnormal findings PSA,Total (Free>4and<10) Today Bianca Stroud PA-C Z00.00 - Encounter for general adult medical examination without abnormal findings Vitamin B12 and Folate Today Bianca Stroud PA-C Z00.00 - Encounter for general adult medical examination without abnormal findings Referrals Cardiology Referral Bianca Stroud PA-C E78.00 - Pure hypercholesterolemia, u nspecified, I10 - Essential (primary) hypertension, I48.0 - Paroxysmal atrial fibrillation, R01.1 - Cardiac murmur, unspecified Medications: Changed From metformin 1,000 mg PO DAILY 1 tab 0RF To metformin 1,000 mg PO BID Aubree Madrid MD
[2024-06-06 11:50] VITALS: BP 122/80; PULSE 78; TEMP 36.3; O2SAT 98; BMI 29.5
--- OUTSIDE RECORDS SUMMARY | 2024-06-06 14:32 | XMS_ITS ---
Author Organization [facility] Address [address], [place] [id number] Care Team Providers Care Retail Management Trainee Name Role Phone Serg Us DO Primary Care Provider Unavail able Serg Us Unavailable [phone] ALLERGIES No Known Allergies REASON FOR VISIT 4 month f/u, Follow up Paroxysmal atrial fibrillation, Type 2 diabetes mellitus with hyperglycemia,without long-term current use of insulin MEDICATIONS Medication SIG (Take, Route, Frequency, Duration) Notes Start Date End Date Status B Complex - 1 capsule Orally Onc e every other day Active Magnesium Citrate 200 MG 1 tablet Orally Once every other day Active Atorvastatin Calcium 40 MG 1 tablet Orally Once a day 08/05/2023 Active metFORMIN HCl 1000 MG 1 tablet with a me al Orally Twice a day 08/05/2023 Active Vitamin D 50 MCG (1999) 1 capsule Orally Once a day Active Metoprolol Tartrate 25 MG 1 tablet Orall y Twice a day Active Apixaban 5 MG 1 tablet Orally Twic e a day Not-Taking SOCIAL HISTORY Tobacco Use: Social History Observation Description Date Details (start date - stop date) Current Smoker NA - NA Sex Assigned At : Social History Observation Description Sex Assigned At Unknown Tobacco Use/Smoking Question Answer Notes Patient is a current smoker How often do you smoke cigarettes? every day How many cigarettes a day do you smoke? 6-10 How soon after you wake up d o you smoke your first cigarette? after 60 minutes Are you interested in quitting? Thinking about q uitting Additional Findings: Tobacco User Curren t cigarette smoker, not currently using another form of tobacco Alcohol Screen Question Answer Notes Did you have a drink contain ing alcohol in the past year? Yes How often did you have a dri nk containing alcohol in the past year? 2 to 4 times a month (2 points) How many drinks did you have on a typical day when you were drinking in the past year? 1 or 2 drinks (0 point) How often did you have 6 or more drinks on one occasion in the past year? Never (0 point) Points 2 Interpretation Negative VITAL SIGNS BMI 29.24 kg/m2 03/07/2024 Blood pressure systolic 124 mm Hg 03/07/20 24 Blood pressure diastolic 70 mm Hg 024 Height 69 in 03/07/2024 Weight 198 lbs 03/07/2024 Encounters Encounter Location Date Provider Diagnosis Serg Us , [address] [phone] 03/07/2024 [facility] Type 2 diabetes mellitus with hyperglycemia, without long-term current use of insulin E11.65 ; Paroxysmal atrial fibrillation I48.0 and Other obesity due to excess calories E66.09 ASSESSMENTS Encounter Date Diagnosis Assessment Notes Treatment Notes Treatment Clinical Notes 03/07/2024 Type 2 diabetes mellitus with hyperglycemia, without long-term current use of insulin (ICD-10 - E11.65) I urged Cristiano to resume taking his atorvastatin 03/07/2024 Paroxysmal atrial fibrillation (ICD-10 - I48.0) 03/07/2024 Other obesity due to excess calories (ICD-10 - E66.09) PLAN OF TREATMENT Medication Medication Name Sig Start Date Stop Date Notes B Complex - 1 capsule Orally Onc e every other day Magnesium Citrate 200 MG 1 tablet Orally Once every other day Atorvastatin Calcium 40 MG 1 tablet Orally Once a day 07/11 metFORMIN HCl 1000 MG 1 tablet with a me al Orally Twice a day 08/05/2023 Vitamin D 50 MCG (1999) 1 capsule Orally Once a day Metoprolol Tartrate 25 MG 1 tablet Orally Twice a day Treatment Notes Assessment Notes Type 2 diabetes mellitus wit h hyperglycemia, without long-term current use of insulin I urged Cristiano to resume taking his atorvastatin Next Appt Details Follow Up: 3 Months, Reason: follow up visit Progress Notes * Examination Category Sub-Category Detail Notes General Examination GENERAL APPEARANCE: in no ac nikolai distress, well developed, well nourished HEAD: normocephalic, atrau matic HEART: no murmurs, regular rate and rhythm, S1, S2 normal LUNGS: clear to auscultatio n bilaterally ABDOMEN: normal, bowel sounds present, soft, nontender, nondistended SKIN: warm and dry EXTREMITIES: no edema PSYCH: alert, oriented, cog nitive function intact
--- OUTSIDE RECORDS SUMMARY | 2024-06-06 14:32 | XMS_ITS ---
Author Organization [facility] Address [address], [place] [phone] Care Team Providers Care Bite Block Maker Name Role Phone Serg Us DO Primary Care Provider Unavail able Serg Us Unavailable [phone] REASON FOR VISIT told patient to call Encounters Encounter Location Date Provider Diagnosis [facility] [address] [place] [id number] 02/27/2024 [facility] PLAN OF TREATMENT No Information
--- OUTSIDE RECORDS SUMMARY | 2024-06-06 14:32 | XMS_ITS ---
Author Organization Serg Us DO, [facility] Address [address], [place] [id number] Care Team Providers Care Media Center Specialist Name Role Phone Serg Us DO Primary Care Provider Unavail able [facility]erg Us Unavailable [phone] REASON FOR VISIT 3 month f/u Encounters Encounter Location Date Provider Diagnosis Serg Us DO, [facility] [address] [place] [id number] 06/06/2024 Serg Us PLAN OF TREATMENT No Information
== END 2024-06-06 12:17 | disposition home or self-care (01) ==
LOC: HO.HMCSH 11:33
PROVIDERS: PCP Internal Medicine; Visit Provider Physician Assistant Medical
DX: E11.9 Type 2 diabetes mellitus without complications (principal); I48.0 Paroxysmal atrial fibrillation; G25.0 Essential tremor; N40.0 Benign prostatic hyperplasia without lower urinary tract symptoms; M51.26 Other intervertebral disc displacement, lumbar region; E78.00 Pure hypercholesterolemia, unspecified; I10 Essential (primary) hypertension; R97.20 Elevated prostate specific antigen [PSA]

== ENCOUNTER → 2024-06-06 11:33 | Outpatient (BNVA) | payer MEDICARE, SELFPAY | PROVIDERS: PCP Internal Medicine; Visit Provider Physician Assistant Medical | DX: E11.9 Type 2 diabetes mellitus without complications (principal); I48.0 Paroxysmal atrial fibrillation; G25.0 Essential tremor; N40.0 Benign prostatic hyperplasia without lower urinary tract symptoms; M51.26 Other intervertebral disc displacement, lumbar region; E78.00 Pure hypercholesterolemia, unspecified; I10 Essential (primary) hypertension; R97.20 Elevated prostate specific antigen [PSA] | CPT/HCPCS: 99202 ==

== ENCOUNTER 2024-11-09 14:19 | Outpatient (AMB) | payer MEDICARE, SELFPAY ==
--- NOTE | 2024-11-09 14:21 | A.OFFPC_ITS ---
Vital Signs 11/09/24 14:22 11/09/24 14:53 Height 5 ft 9.75 in Weight 210 lb BMI 30.3 BP 142/83 H 120/72 Respiration 16 Pulse 66 Pulse Source Pulse Oximeter Temp 97.8 F Temp Source Temporal Artery Scan Pulse Oximetry (%) 98 Oxygen Delivery Method Room Air Intake Visit Reasons: Sleep issues follow up Campus Safety Officer Required: No Accompanied by: Self / Same As Patient Allergies adhesive tape Adverse Reaction (Verified 11/09/24 16:22) blisters Medication List - Last Reconciled 11/09/24 by Bianca Stroud PA-C cholecalciferol (vitamin D3) 50 mcg PO DAILY magnesium 200 mg PO DAILY metformin 1,000 mg PO BID 90 days metoprolol tartrate 25 mg PO BID trazodone 50 mg PO BEDTIME PRN vitamin B complex 1 cap PO DAILY Tobacco use date assessed: 11/09/24 Fall risk assessment: No Falls in past year Last assessed Fall Risk: 11/09/24 Dental Screening Dental Screen Date: 11/09/24 Did you have a dental visit in the last 12 months?: Yes Did you have a dental problem in the last 6 months where you did not have access to dental care?: No Was dental information given to patient?: Patient has dentist HPI Sleep issues follow up HPI Details The patient is a 79-year-old male presenting with insomnia. He reports difficulty sleeping, initially achieving only two hours of sleep at a time, which has improved to four hours with trazodone. Prior to trazodone, he experienced dizziness and fatigue due to lack of sleep. The patient has a history of hypertension, which is not regularly monitored at home. Blood pressure during the visit was recorded at 120/72 mmHg, indicating good control at this time. The patient is also managing diabetes mellitus with metformin, 1000 mg twice daily. There is a history of vitamin D deficiency and low magnesium levels, for which the patient takes supplements. The patient was previously suspected to have atrial fibrillation, but this was ruled out after further evaluation. The patient has bladder stones, which previously led to significant bleeding and a misdiagnosis of atrial fibrillation. [facility] Medical History (Updated 11/09/24 @ 16:28 by Bianca Stroud PA-C) Vitamin D deficiency Type 2 diabetes mellitus with hemoglobin A1c goal of less than 7.0% Insomnia Heart murmur PSA elevation Encounter for colorectal cancer screening using Cologuard test (~08/31/22) Type 2 diabetes mellitus Paroxysmal atrial fibrillation Essential tremor Tubular adenoma BPH (benign prostatic hyperplasia) Ureteral stone History of rib fracture Lumbar herniated disc [place]-Schlatter's disease Mild hypercholesterolemia Hypertension Surgical History History of colonoscopy (~04/20/16) History of prostate surgery Family History Father No problems noted. Mother No problems noted. Social History Housing: Other Housing Other:: mobile home Alcohol intake: current Alcohol intake frequency: does not drink Patient Tobacco Use Status: Current everyday Tobacco user Cigarettes Per Day: 10 service: No Current occupational status: retired Cognitive needs: No Hearing needs: No Vision needs: No Questionnaire PHQ-9 Over the last 2 weeks, how often have you been bothered by any of the following problems? 1. Little interest or pleasure in doing things: not at all 2. Feeling down, depressed, or hopeless: not at all 3. Trouble falling or staying asleep, or sleeping too much: not at all 4. Feeling tired or having little energy: not at all 5. Poor appetite or overeating: not at all 6. Feeling bad about yourself - or that you are a failure or have let yourself or your family down: not at all 7. Trouble concentrating on things, such as reading the newspaper or watching television: not at all 8. Moving or speaking so slowly that other people could have noticed. Or the opposite - being so fidgety or restless that you have been moving around a lot more than usual: not at all 9. Thoughts that you would be better off or of hurting yourself in some way: not at all Total score: 0 Depression Screening Interpretation: Negative Depression Screening Done: Yes 72951 - PHQ-9 Billing: Yes Source: Developed by Drs. Serg Cardoso, Cat Bautista, Hema Butt and colleagues, with an educational cecy from [employer]. Thrive Questionnaire Date Thrive assessed: 08/01/25 I am a: Patient What is your living situation today?: I have a steady place to live Within the past 12 months, did the food you bought not last and you didn't have the money to get more?: Never true Within the past 12 months, did you worry whether your food would run out before you got money to buy more?: Never true Do you have trouble paying for medicines?: No Do you have trouble getting transportation to medical appointments?: No Do you have trouble paying your heating and electricity bill?: No Do you have trouble taking care of your child, family member or friend?: No Do you have trouble with day-to-day activities such as bathing, preparing meals, shopping, managing finances, etc.?: No Are you currently unemployed and looking for a job?: No Are you interested in more education?: No Please select the resources that you would like help with: None THRIVE Score: 0 AUDIT C Alcohol Use Questionnaire (AUDIT-C) 1. How often do you have a drink containing alcohol?: Never 3. How often do you have six or more drinks on one occasion?: Never Total Score: 0 Score Reviewed/Action Taken: No ERASTO-7 AMB Questionnaire ERASTO-7 Date ERASTO - 7 assessed: 11/09/24 Feeling nervous, anxious, or on edge: 0 = Not at all Not being able to stop or control worryin = Not at all Worrying too much about different things: 0 = Not at all Trouble relaxin = Not at all Being so restless that it is hard to sit still: 0 = Not at all Becoming easily annoyed or irritable: 0 = Not at all Feeling afraid as if something awful might happen: 0 = Not at all Total ERASTO-7 score (0-4 normal; 5-9 mild; 10-14 moderate; 15-21 severe): 0 Source: Developed by Drs. Serg Cardoso, Cat Bautista, Hema Butt and colleagues, with an educational cecy from [employer]. ERASTO-7 Assessment Billing ERASTO-7 Assessment Tool: ERASTO-7 Assessment 70250 Review of Systems Const Details: - General: Reports insomnia, improved with trazodone. Denies dizziness currently. - Cardiovascular: Denies chest pain or palpitations. - Gastrointestinal: Denies abdominal pain, black or bloody stools. All systems reviewed & are unremarkable except as noted in HPI and below Physical exam (Primary Care) Vital Signs: Last Vital Signs Temp 97.8 F 11/09/24 14:22 Pulse 66 11/09/24 14:22 Resp 16 11/09/24 14:22 BP 120/72 11/09/24 14:53 Pulse Ox 98 11/09/24 14:22 Oxygen Delivery Method Room Air 11/09/24 14:22 Care Plan Goal for BP management: <140/90 at Goal BMI result Body Mass Index 30.3 BMI Assessment/Plan discussion: High BMI High, discussed plan: lifestyle, weight reduction, dietary, physical activity and alcohol moderation Tobacco/Smoking Status: Tobacco use Status Tobacco use date assessed 11/09/24 11/09/24 14:30 Patient Tobacco Use Status Current everyday Tobacco 11/09/24 14:30 PHQ-9: PHQ-9 Score PHQ-9: Total score 0 11/09/24 14:53 Depression Screening Interpretation: Negative Thrive Assessment: Date of Thrive Assessment Date Thrive assessed 11/09/24 11/09/24 14:30 Const Other: Appearance: Alert. Oriented X3. No acute distress. Head: Normal external exam. Normocephalic. Atraumatic. Eyes: Pupils are equal, round, and reactive to light. Extraocular movements intact. Conjunctiva and sclera normal. Eyelids normal. Throat: Pharynx normal. Uvula midline. Moist mucous membranes. Neck: Normal inspection. Neck supple. Full range of motion. Cardiovascular: Normal heart rate and rhythm. Heart sound normal. No murmurs noted. Blood pressure 120/72. Pulse 59. Pulses normal throughout. Respiratory: No respiratory distress. Painless inspiration. Breath sounds normal. No wheezes/rales/rhonchi noted. Chest nontender. No accessory muscle usage noted or decreased air movement noted. Back: Full range of motion noted. Skin: Skin warm and dry. Normal skin color. Normal skin turgor. No rashes/lesions/lacerations noted. Extremities: +1 lower extremity edema. Extremities exhibit normal range of motion. Neuro: Oriented X 3. No motor deficit. No sensory deficit. Reflexes normal. Coding Level of Care Code Est Pt Level 4 (90751) Complex EM visit Add On G2211 Diagnoses Insomnia G47.00 Hypertension I10 Type 2 diabetes mellitus with hemoglobin A1c goal of less than 7.0% E11.9 Vitamin D deficiency E55.9 Bladder stones N21.0 Additional Codes PHQ-9 - 03734 - PHQ-9 Billing: Yes ([id number]) ERASTO-7 Assessment Billing - ERASTO-7 Assessment Tool: ERASTO-7 Assessment 15856 ([id number]) Assessment & Plan Assessment & Plan (1) Insomnia: Code(s): G47.00 - Insomnia, unspecified Category: Medical Plan: The patient is currently being treated with trazodone, which has improved sleep duration from two to four hours per night. The patient is advised to continue trazodone and may take two pills if necessary, but should try to stick to one to avoid grogginess. (2) Hypertension: Code(s): I10 - Essential (primary) hypertension Category: Medical Plan: Blood pressure was recorded at 120/72 mmHg during the visit, indicating good control. The patient is advised to monitor blood pressure regularly at home. (3) Type 2 diabetes mellitus with hemoglobin A1c goal of less than 7.0%: Code(s): E11.9 - Type 2 diabetes mellitus without complications Category: Medical Plan: The patient is managing diabetes with metformin, 1000 mg twice daily. The patient declined an A1c test during this visit. (4) Vitamin D deficiency: Code(s): E55.9 - Vitamin D deficiency, unspecified Category: Medical Plan: The patient is taking vitamin D supplements to manage deficiency. (5) Bladder stones: Code(s): N21.0 - Calculus in bladder Category: Medical Plan: The patient has a history of bladder stones, which previously led to significant bleeding and a misdiagnosis of atrial fibrillation. Plan Plan Patient was informed and verbally consented to the use of an ambient scribe for clinic note documentation during this visit. 1. Insomnia The patient is currently being treated with trazodone, which has improved sleep duration from two to four hours per night. The patient is advised to continue trazodone and may take two pills if necessary, but should try to stick to one to avoid grogginess. 2. Hypertension Blood pressure was recorded at 120/72 mmHg during the visit, indicating good control. The patient is advised to monitor blood pressure regularly at home. 3. Diabetes Mellitus The patient is managing diabetes with metformin, 1000 mg twice daily. The patient declined an A1c test during this visit. 4. Vitamin D Deficiency The patient is taking vitamin D supplements to manage deficiency. 5. Bladder Stones The patient has a history of bladder stones, which previously led to significant bleeding and a misdiagnosis of atrial fibrillation. During the visit, we discussed the management of insomnia with trazodone, which has improved the patient's sleep duration. The patient was advised to continue trazodone and may take two pills if necessary, but should try to stick to one to avoid grogginess. We also reviewed the patient's blood pressure, which was well- controlled at 120/72 mmHg, and discussed the importance of regular monitoring at home. The patient declined an A1c test during this visit, and we confirmed that atrial fibrillation was ruled out in the past. Patient Instructions: - Continue taking trazodone as prescribed. You may take two pills if necessary, but try to stick to one to avoid grogginess. - Monitor your blood pressure regularly at home. - Follow up with your next appointment as scheduled.
[2024-11-09 14:22] VITALS: BP 142/83; PULSE 66; RESP 16; TEMP 36.6; O2SAT 98; BMI 30.3
[2024-11-09 14:53] VITALS: BP 120/72
== END 2024-11-09 15:14 | disposition home or self-care (01) ==
LOC: HO.HMCSH 14:19
PROVIDERS: PCP Internal Medicine; Visit Provider Physician Assistant Medical
DX: G47.00 Insomnia, unspecified (principal); I10 Essential (primary) hypertension; E11.9 Type 2 diabetes mellitus without complications; E55.9 Vitamin D deficiency, unspecified; N21.0 Calculus in bladder

== ENCOUNTER → 2024-11-09 14:19 | Outpatient (BNVA) | payer MEDICARE, SELFPAY | PROVIDERS: PCP Internal Medicine; Visit Provider Physician Assistant Medical | DX: I10 Essential (primary) hypertension (principal); E11.9 Type 2 diabetes mellitus without complications; E55.9 Vitamin D deficiency, unspecified; N21.0 Calculus in bladder; G47.00 Insomnia, unspecified; Z79.84 Long term (current) use of oral hypoglycemic drugs; Z13.31 Encounter for screening for depression; Z13.39 Encounter for screening examination for other mental health and behavioral disorders | CPT/HCPCS: 96127; 99212 ==

== ENCOUNTER 2024-11-16 19:18 | Inpatient (IN) | payer MEDICARE, SELFPAY ==
--- NOTE | ~2024-11-16 | CT_ITS ---
CLINICAL HISTORY: [place] hematuria with hx of bladder stone CT abdomen and pelvis without contrast Comparison: None provided Findings: Lung bases clear. No acute bony abnormalities. Degenerative change spine and hips. Hepatomegaly with fatty infiltration of the liver. No focal abnormalities in liver or spleen. Pancreas and adrenal glands unremarkable. Gallbladder within normal limits. No bilateral renal stone or hydronephrosis. No focal renal abnormality or ureteral dilation. Medial right renal cyst noted. Heterogeneous enlarged prostate gland. Prostate impresses on inferior bladder wall. Hyperdense material noted posterior inferior bladder. This may represent hemorrhage within the bladder. Bladder mass is also in the differential. Follow-up cystoscopy will likely be needed. No evidence for aortic aneurysm. No free fluid or adenopathy in the pelvis. No diverticulitis. Appendix unremarkable. Impression: Hyperdense material in the urinary bladder Differential includes hemorrhage versus mass Heterogeneous enlarged prostate impresses on bladder Cystoscopy may be of value This document has been electronically signed by: Niels Heck MD on 11/17/2024 00:18:37
--- NOTE | ~2024-11-16 | XR_ITS ---
EXAMINATION: XR CHEST CLINICAL INFORMATION: chest pain COMPARISON: None available. TECHNIQUE: Frontal view of the chest was obtained. FINDINGS: No consolidation, pleural effusion or pneumothorax. No hyperinflation. Cardiomediastinal silhouette size is normal. Multilevel thoracic and upper lumbar spondylosis. Degenerative changes in the right shoulder suggesting chronic rotator cuff tendon tear. Metallic prosthesis left humerus no fully included in the [id number]. XR/XR chest 1V IMPRESSION: No acute airspace disease. Multilevel spondylosis. Electronically signed by: Umair Conley MD 11/20/2024 03:47 PM EDT
[2024-11-16 19:27] VITALS: BP 149/92; PULSE 84; O2SAT 96
[2024-11-16 19:32] VITALS: BMI 28.4
[2024-11-16 19:39] VITALS: BP 131/80; PULSE 79; RESP 16; TEMP 36.6; O2SAT 95
[2024-11-16 20:15] LABS: Appearance Urine Hazy; PH 7.0 (5.0-9.0); Specific Gravity - Urine 1.010 (1.005-1.025); UMIC TRIGGER UACC YES
[2024-11-16 20:27] LABS: MANUAL DIFF FLAG NO
[2024-11-16 20:29] LABS: Hematocrit 45.7 % (42.0-52.0); Hemoglobin 16.0 g/dl (14.0-18.0); Imm Gran Abs Auto 0.02 X10*3/uL (0.00-0.03); Imm Gran Pct Auto 0.2 % (0.0-0.4); Lymphocytes Absolute Auto 1.8 X10*3/uL (1.2-4.9); Mean Corpuscular HGB Conc 35.0 g/dl (31.0-36.0); Mean Corpuscular Hemoglobin 30.1 pg (27.0-33.0); Mean Corpuscular Volume 86.1 fL (80.0-98.0); NRBC Abs Auto 0.000 X10*3/uL (0.0-0.012); NRBC Pct Auto 0.0 /100WBC (0.0-0.2); Platelet Count 176 X10*3/uL (160-400); Red Blood Count 5.31 X10*6/uL (4.60-5.80); White Blood Count 8.3 X10*3/uL (4.8-10.8)
--- NOTE | 2024-11-16 20:43 | ED.MALEGU ---
HPI - Male Genitourinary General Chief complaint: Urogenital-Male Stated complaint: hx bladder stones , blood in urine Time Seen by Provider: 11/16/24 20:31 Source: patient Mode of arrival: ambulatory Limitations: no limitations History of Present Illness ED Provider: HPI Narrative: Patient's with hypertension diabetes, history of kidney and bladder stone in the past had bladder stone last time was 2 years ago comes here for painless hematuria since started at 10:00 today similar to that when he had bladder stone 2 years no flank pain no fever no chills Related Data Home Medications ?Medication ?Instructions ?Recorded ?Confirmed cholecalciferol (vitamin D3) 50 50 mcg PO DAILY 06/06/24 11/09/24 mcg (2,000 unit) capsule magnesium 200 mg tablet 200 mg PO DAILY 06/06/24 11/09/24 vitamin B complex 1 cap PO DAILY 06/06/24 11/09/24 Previous Rx's ?Medication ?Instructions ?Recorded metoprolol tartrate 25 mg tablet 25 mg PO BID #180 tabs 07/23/24 metformin 1,000 mg tablet 1,000 mg PO BID 90 days #180 tabs 10/10/24 trazodone 50 mg tablet 50 mg PO BEDTIME PRN sleep #30 tabs 11/01/24 Allergies Allergy/AdvReac Type Severity Reaction Status Date / Time adhesive tape AdvReac blisters Verified 11/16/24 19:33 Review of Systems Review of Systems: Yes all other systems are reviewed and are negative PMFSH Past Medical History Medical History Vitamin D deficiency Type 2 diabetes mellitus with hemoglobin A1c goal of less than 7.0% Insomnia Heart murmur PSA elevation Encounter for colorectal cancer screening using Cologuard test (~08/31/22) Type 2 diabetes mellitus Essential tremor Tubular adenoma BPH (benign prostatic hyperplasia) Ureteral stone History of rib fracture Lumbar herniated disc [place]-Schlatter's disease Mild hypercholesterolemia Hypertension Surgical History History of colonoscopy (~04/20/16) History of prostate surgery Family History Family History Father No problems noted. Mother No problems noted. Social History Social History Housing: Other Housing Other:: mobile home Alcohol intake: current Alcohol intake frequency: does not drink Patient Tobacco Use Status: Current everyday Tobacco user Cigarettes Per Day: 10 Smoked in Last 30 Days: Yes Use of substances other than those prescribed or required for medical reasons: Yes Substance Use Type: Marijuana Advance Directives: No Advance Directives Information Provided: Yes Do you have a plan to hurt others: No Plan service: No Current occupational status: retired Cognitive needs: No Hearing needs: No Vision needs: No Physical Exam Vital Signs: Vital Signs: Last Vital Signs Temp 97.9 F 11/16/24 19:39 Pulse 79 11/16/24 19:39 Resp 16 11/16/24 19:39 BP 131/80 11/16/24 19:39 Pulse Ox 95 11/16/24 19:39 O2 Del Method Room Air 11/16/24 19:39 BMI result Body Mass Index 28.4 Appearance: Alert. Oriented X3. No acute distress. Eyes: PERRLA, No Nystagmus ENT: Pharynx normal. Oral Mucosa moist Neck: Normal inspection. Neck supple. CVS: Normal heart rate and rhythm. Pulses normal. Respiratory: No respiratory distress. Equal air entry bilateral, no wheezing/rales/rhonchi Abdomen: Soft and nontender. Bowel sounds are present, no mass palpable, no CVA tenderness Skin: Skin warm and dry. Normal skin color. Normal skin turgor. Extremities: No lower extremity edema. No calf tenderness Neuro: Oriented X 3. No motor deficit. No sensory deficit.No cerebellar signs , cranial nerves II-XII intact Medications Administered Discontinued Medications Generic Name Dose Route Start Last Admin Trade Name Freq PRN Reason Stop Dose Admin Sodium Chloride 1,000 mls @ 999 mls/hr 11/16/24 21:09 11/17/24 00:59 Ns IV 11/16/24 22:09 Infused .Q1H1M ONE Infusion Medical Decision Making Medical Decision Making [facility] Narrative: Patient with manuel hematuria with history of bladder stone CT scan showed possible bladder stone patient does not want Tolentino catheter at this time able to urinate well postviral urine in his less than 200 cc will admit patient for cystoscopy for gross hematuria Differential Diagnosis Differential Diagnoses: The differential diagnosis associated with the presentation includes Admission/Observation Consideration of admission/observation: Escalation of care including admission/observation considered Consult Healthcare Provider Management of the patient was discussed with: Hospitalist Lab Data MDM Lab Attestation statement: I reviewed the patient's lab results. 11/16/24 20:20 11/16/24 20:20 Labs: Lab Results 11/16/24 11/16/24 Range/Units 19:55 20:20 WBC 8.3 (4.8-10.8) X10*3/uL RBC 5.31 (4.60-5.80) X10*6/uL Hgb 16.0 (14.0-18.0) g/dl Hct 45.7 (42.0-52.0) % MCV 86.1 (80.0-98.0) fL MCH 30.1 (27.0-33.0) pg MCHC 35.0 (31.0-36.0) g/dl RDW 13.1 (11.0-16.0) % Plt Count 176 (160-400) X10*3/uL MPV 10.1 (9.4-12.4) fL Immature Gran % (Auto) 0.2 (0.0-0.4) % Neut % (Auto) 69.4 (45-73) % Lymph % (Auto) 21.9 (20-40) % [place] % (Auto) 6.4 (2-11) % Eos % (Auto) 1.9 (0-4) % Baso % (Auto) 0.2 (0-2) % Lymph # (Auto) 1.8 (1.2-4.9) X10*3/uL [place] # (Auto) 0.5 (0.1-1.2) X10*3/uL Eos # (Auto) 0.2 (0.0-0.4) X10*3/uL Baso # (Auto) 0.0 (0.0-0.2) X10*3/uL Abs Immat Gran (auto) 0.02 (0.00-0.03) X10*3/uL Absolute Neuts (auto) 5.8 (2.0-8.3) x10*3/uL Absolute Nucleated RBC 0.000 (0.0-0.012) X10*3/uL Nucleated RBC % (auto) 0.0 (0.0-0.2) /100WBC Sodium 138 (135-145) mmol/L Potassium 3.2 L D (3.3-5.1) mmol/L Chloride 109 H (96-108) mmol/L Carbon Dioxide 22 (22-29) mmol/L Anion Gap 10 L (12-20) BUN 10 (9-16) mg/dL Creatinine 0.68 (0.5-1.4) mg/dL Estim Creat Clear Calc 105.7 Estimated GFR > 60 Random Glucose 110 (60-115) mg/dL Calcium 7.8 L D (8.4-10.2) mg/dL Total Bilirubin 0.7 (0.0-1.0) mg/dL AST 32 (5-37) U/L ALT 30 (0-40) U/L Alkaline Phosphatase 62 (39-117) U/L Total Protein 6.0 L (6.5-8.0) g/dL Albumin 3.9 (3.5-5.0) g/dL Urine Color RED Urine Appearance Hazy Urine pH 7.0 (5.0-9.0) Ur Specific [place] 1.010 (1.005-1.025) Urine Protein See Note (Neg-Trace) mg/dL Urine Glucose (UA) See Note (Negative) mg/dL Urine Ketones See Note (Negative) mg/dL Urine Blood Large (3+) H (Negative) Urine Nitrite See Note (Negative) Ur Leukocyte Esterase See Note (Negative) Urine RBC >20 H (0-2) /HPF Urine WBC 0-5 (0-5) /HPF Ur Squamous Epith Cells 0-2 (0-2) /HPF Urine Bacteria 2+ (None Seen) Hyaline Casts 0-2 (0-2) /LPF Independent Interpretation I performed an independent interpretation of an: CT Scan Radiology Impression Discussion of test interpretation with radiology: I have reviewed the radiologist's reading. Radiologist Impression: Impression: Hyperdense material in the urinary bladder Differential includes hemorrhage versus mass Heterogeneous enlarged prostate impresses on bladder Cystoscopy may be of value This document has been electronically signed by: Niels Heck MD on 11/17/2024 00:18:37 Discharge Plan Discharge Clinical Impression: Gross hematuria, Bladder calculus Patient Disposition: Admitted As Inpatient
[2024-11-16 20:45] LABS: Alanine Aminotransferase 30 U/L (0-40); Albumin Level 3.9 g/dL (3.5-5.0); Alkaline Phosphatase 62 U/L (39-117); Anion Gap 10 (12-20); Aspartate Amino Transferase 32 U/L (5-37); Blood Urea Nitrogen 10 mg/dL (9-16); Calcium 7.8 mg/dL (8.4-10.2); Carbon Dioxide 22 mmol/L (22-29); Chloride 109 mmol/L (96-108); Creatinine Clr Calc Pharmacy 105.7; Estimated Glomerular Filt Rate > 60; Potassium 3.2 mmol/L (3.3-5.1); Sodium 138 mmol/L (135-145); Total Protein 6.0 g/dL (6.5-8.0)
[2024-11-17] VITALS (8 sets, daily range): BP systolic 135–164; BP diastolic 81–96; PULSE 66–100; RESP 15–20; TEMP 36.6–36.9; O2SAT 96–99; BMI 28.5
--- NOTE | 2024-11-17 00:30 | PM.IMHP ---
History of Present Illness Date of Service: 11/17/24 Chief Complaint: Hematuria This has a 79-year-old male with pertinent history of hypertension, njv-aqxrrkg-nyvhyztyu type 2 diabetes mellitus, mood disorder who presents to the emergency department for evaluation of hematuria. Patient states he 1st noticed bright red blood in his urine on the morning of presentation. It has been painless and constant. No abdominal discomfort. Denies fever, chills, nausea, vomiting. Does have a history of nephrolithiasis and bladder stones. Also reports blood clots in urine. No chest pain, palpitations, shortness of breath, changes in bowel habits. In the emergency department, patient was initiated on CBI. Review of Systems Constitutional: Constitutional: Reports no additional constitutional complaints Cardiovascular: Cardiovascular: Reports no additional cardiovascular complaints Respiratory: Respiratory: Reports no additional respiratory complaints Gastrointestinal: Gastrointestinal: Reports no additional gastrointestinal complaints Genitourinary: Genitourinary: Reports hematuria COUNTS INCLUDE 234 BEDS AT THE [facility] Medical History Vitamin D deficiency Type 2 diabetes mellitus with hemoglobin A1c goal of less than 7.0% Insomnia Heart murmur PSA elevation Encounter for colorectal cancer screening using Cologuard test (~08/31/22) Type 2 diabetes mellitus Essential tremor Tubular adenoma BPH (benign prostatic hyperplasia) Ureteral stone History of rib fracture Lumbar herniated disc Fifi-Schlatter's disease Mild hypercholesterolemia Hypertension Family History Father No problems noted. Mother No problems noted. Surgical History History of colonoscopy (~04/20/16) History of prostate surgery Social History Housing: Other Housing Other:: mobile home Alcohol intake: current Alcohol intake frequency: does not drink Patient Tobacco Use Status: Current everyday Tobacco user Cigarettes Per Day: 10 Smoked in Last 30 Days: Yes Use of substances other than those prescribed or required for medical reasons: Yes Substance Use Type: Marijuana Advance Directives: No Advance Directives Information Provided: Yes Do you have a plan to hurt others: No Plan service: No Current occupational status: retired Cognitive needs: No Hearing needs: No Vision needs: No Meds Allergies Allergy/AdvReac Type Severity Reaction Status Date / Time adhesive tape AdvReac blisters Verified 11/16/24 19:33 Home Medications ?Medication ?Instructions ?Recorded ?Confirmed ?Last Taken ?Type cholecalciferol (vitamin D3) 50 50 mcg PO DAILY 06/06/24 11/09/24 Unknown History mcg (2,000 unit) capsule magnesium 200 mg tablet 200 mg PO DAILY 06/06/24 11/09/24 Unknown History vitamin B complex 1 cap PO DAILY 06/06/24 11/09/24 Unknown History Physical Exam Vital Signs and Narrative: Vital Signs: Last Vital Signs Temp 97.9 F 11/16/24 19:39 Pulse 79 11/16/24 19:39 Resp 16 11/16/24 19:39 BP 131/80 11/16/24 19:39 Pulse Ox 95 11/16/24 19:39 O2 Del Method Room Air 11/16/24 19:39 BMI result Body Mass Index 28.4 Const: Other: Middle-aged male lying in bed in no distress Neck supple, no JVD Regular rate and rhythm, S1-S2 heard Regular breath sounds bilaterally, no wheezing or crackles appreciated Abdomen soft nontender, no guarding, no rigidity Patient is awake, alert and oriented to self, place, time and person ; no focal motor deficit Psych: Normal mood No pedal edema Results Labs 11/16/24 20:20 11/16/24 20:20 Labs: Laboratory Results - last 24 hr 11/16/24 11/16/24 19:55 20:20 MCV 86.1 MCH 30.1 MCHC 35.0 RDW 13.1 Plt Count 176 MPV 10.1 Immature Gran % (Auto) 0.2 Neut % (Auto) 69.4 Lymph % (Auto) 21.9 [place] % (Auto) 6.4 Eos % (Auto) 1.9 Baso % (Auto) 0.2 Lymph # (Auto) 1.8 [place] # (Auto) 0.5 Eos # (Auto) 0.2 Baso # (Auto) 0.0 Abs Immat Gran (auto) 0.02 Absolute Neuts (auto) 5.8 Absolute Nucleated RBC 0.000 Nucleated RBC % (auto) 0.0 Anion Gap 10 L Estim Creat Clear Calc 105.7 Estimated GFR > 60 Random Glucose 110 Calcium 7.8 L D Total Bilirubin 0.7 AST 32 ALT 30 Alkaline Phosphatase 62 Total Protein 6.0 L Albumin 3.9 Urine Color RED Urine Appearance Hazy Urine pH 7.0 Ur Specific [place] 1.010 Urine Protein See Note Urine Glucose (UA) See Note Urine Ketones See Note Urine Blood Large (3+) H Urine Nitrite See Note Ur Leukocyte Esterase See Note Urine RBC >20 H Urine WBC 0-5 Ur Squamous Epith Cells 0-2 Urine Bacteria 2+ Hyaline Casts 0-2 Assessment and Plan (1) Hematuria: Status: Acute Plan This has a 79-year-old male with pertinent history of hypertension, fiu-amlvlyv-venxfyplr type 2 diabetes mellitus, mood disorder who presents to the emergency department for evaluation of hematuria. #. Hematuria, painless: Will admit patient with continuous bladder irrigation. Consulted Urology, appreciate assistance. Closely monitor hemodynamics and H&H. Imaging with hyperdense material in bladder (hemorrhage versus mass) #. Hypokalemia: Repleted #. [id number] diabetes mellitus: Initiating Accu-Cheks with sliding scale insulin every 6 hours while patient is NPO #. Hypertension: Resume metoprolol once no longer NPO Med rec pending DVT prophylaxis: SCDs Full code. Discussed with patient at bedside Admit as inpatient and will require two night minimum hospital stay for evaluation of painless hematuria, close monitoring of hemodynamics, CBI (as above), which is not possible in a lesser acute setting. Specialist consult pending Quality Stroke Does the patient have a stroke diagnosis?: No VTE Prior VTE?: No VTE Risk Level:: Medical - moderate - high VTE Device Contraindication: N/A - Device Ordered VTE Drug Contraindication: Treatment Not Indicated
[2024-11-17 01:33] LABS: Glucose, Whole Blood 117 mg/dL (60-115)
[2024-11-17] MEDS: Potassium Chloride Packet 20 MEQ PACKET 40 MEQ PO (01:35)
[2024-11-17] MEDS: Lidocaine HCl 2 % Urojet 10 ML JEL.PF.APP TOPICAL (01:38)
[2024-11-17 06:14] LABS: Hematocrit 46.0 % (42.0-52.0); Hemoglobin 15.9 g/dl (14.0-18.0); Mean Corpuscular HGB Conc 34.6 g/dl (31.0-36.0); Mean Corpuscular Hemoglobin 30.1 pg (27.0-33.0); Mean Corpuscular Volume 87.1 fL (80.0-98.0); NRBC Abs Auto 0.000 X10*3/uL (0.0-0.012); NRBC Pct Auto 0.0 /100WBC (0.0-0.2); Platelet Count 177 X10*3/uL (160-400); Red Blood Count 5.28 X10*6/uL (4.60-5.80); White Blood Count 9.0 X10*3/uL (4.8-10.8)
[2024-11-17 06:52] LABS: Anion Gap 13 (12-20); Blood Urea Nitrogen 10 mg/dL (9-16); Calcium 9.0 mg/dL (8.4-10.2); Carbon Dioxide 23 mmol/L (22-29); Chloride 106 mmol/L (96-108); Creatinine Clr Calc Pharmacy 87.6; Estimated Glomerular Filt Rate > 60; Potassium 4.2 mmol/L (3.3-5.1); Sodium 138 mmol/L (135-145)
--- NOTE | 2024-11-17 07:17 | PC.NURSE ---
Assumed care of pt at 0710,, pt with active CBI, collection device emptied for 1800ml of light fruit punch colored urine. CBI continues to infuse at this time. Pt denies any pain. VSS. NSR on tele
--- NOTE | 2024-11-17 07:35 | PHA.MEDREC ---
Pharmacy Consult ? Medication Reconciliation Pharmacy has completed the medication reconciliation. Spoke with patient at bedside, he told me all his meds. States he takes metformin daily now due to GI upset.
[2024-11-17 07:52] LABS: Glucose, Whole Blood 121 mg/dL (60-115)
[2024-11-17] MEDS: 0.9 % Sodium Chloride Flush 3 ML SYRINGE IVFLUSH ×2 (11:18→17:40)
[2024-11-17 12:57] LABS: Glucose, Whole Blood 135 mg/dL (60-115)
--- NOTE | 2024-11-17 13:14 | PM.EVENT ---
Event Note Date of Service: 11/17/24 Event Note: Patient seen and examined by hospitalist team this morning, Seen and examined again Hematuria clearing H&H stable around 15 On CBI Physical and assessment and plan as per HPI. Hematuria-urology evaluation pending, hypokalemia repleted and resolved. Time Spent With Patient Time: Total time managing care of this patient today ____ minutes.
--- NOTE | 2024-11-17 13:26 | PC.NURSE ---
Pt c/o intermittent burning and discomfort to suprapubic region. Manually irrigated with brief relief. Manually irrigated again with moderate amount of small clots however pt again stated sensation reoccurred. Dr Simental tigered and to bedside for eval. Manually irrigated and checked position of cath. States little amount of clots and believes pts discomfort is from bladder spasms and will put PRN for for belladonna suppository to assist. Plan of care ongoing.
--- NOTE | 2024-11-17 13:32 | PM.UROCN ---
History of Present Illness Consult details Consult date: 11/17/24 Narrative: CC: hematuria 79-year-old male Noted bright red blood in urine this morning Painless in constant Denies fever, chills, nausea Prior history nephrolithiasis and bladder stone Multiple prior prostate intervention CBI initiated for clot Currently with significant symptomatic bladder spasm Review of Systems Constitutional: Constitutional: Reports as per HPI and Reports no additional constitutional complaints Cardiovascular: Cardiovascular: Reports as per HPI and Reports no additional cardiovascular complaints Respiratory: Respiratory: Reports as per HPI and Reports no additional respiratory complaints Gastrointestinal: Gastrointestinal: Reports as per HPI and Reports no additional gastrointestinal complaints Genitourinary: Genitourinary: Reports as per HPI Musculoskeletal: Musculoskeletal: Reports no additional musculoskeletal complaints and Reports as per HPI Neurologic: Reports system reviewed and no additional complaints, except as documented and Reports as per HPI PMF Past Medical History Medical History Vitamin D deficiency Type 2 diabetes mellitus with hemoglobin A1c goal of less than 7.0% Insomnia Heart murmur PSA elevation Encounter for colorectal cancer screening using Cologuard test (~08/31/22) Type 2 diabetes mellitus Essential tremor Tubular adenoma BPH (benign prostatic hyperplasia) Ureteral stone History of rib fracture Lumbar herniated disc [place]-Schlatter's disease Mild hypercholesterolemia Hypertension Family History Family History Father No problems noted. Mother No problems noted. Surgical History Surgical History History of colonoscopy (~04/20/16) History of prostate surgery Social History Social History Housing: Other Housing Other:: mobile home Alcohol intake: current Alcohol intake frequency: does not drink Patient Tobacco Use Status: Current everyday Tobacco user Cigarettes Per Day: 10 Smoked in Last 30 Days: Yes Use of substances other than those prescribed or required for medical reasons: Yes Substance Use Type: Marijuana Advance Directives: No Advance Directives Information Provided: Yes Do you have a plan to hurt others: No Plan service: No Current occupational status: retired Cognitive needs: No Hearing needs: No Vision needs: No Meds Allergies Allergy/AdvReac Type Severity Reaction Status Date / Time adhesive tape AdvReac blisters Verified 11/16/24 19:33 Active Medications: Current Medications Acetaminophen (Acetaminophen 325 Mg Tablet) 650 mg PO Q6H PRN PRN Reason: Pain, Mild 1-3,fever,headache Last Admin: 11/17/24 01:36 Dose: 650 mg Calcium Carbonate (Calcium Carbonate 750 Mg Tab.Chew) 750 mg PO Q4H PRN PRN Reason: Heartburn Dextrose (Dextrose 50 % 25 Gm/50 Ml Syringe) 25 gm IVPUSH Q15M PRN; Protocol PRN Reason: per Hypoglycemia Standing Ord. Glucose (Glucose Gel 15 Gm Gel..Gram.) 15 gm PO Q15M PRN; Protocol PRN Reason: per Hypoglycemia Standing Ord. Insulin Human Lispro (Insulin Lispro 100 Unit/Ml 3 Ml Vial) 0 unit SUBCUT Q6H [facility]; Protocol Last Admin: 11/17/24 13:25 Dose: Not Given Magnesium Hydroxide (Milk Of Magnesia 30 Ml Oral.Susp) 30 ml PO DAILY PRN PRN Reason: Constipation Melatonin (Melatonin 3 Mg Tablet) 6 mg PO BEDTIME PRN PRN Reason: Insomnia Metoprolol Tartrate (Metoprolol Tartrate 25 Mg Tablet) 25 mg PO BID [facility]; Protocol Multivitamins/Vitamin C (Multivitamin Tablet) 1 tab PO Q48H [facility] Ondansetron HCl (Ondansetron Hcl 4 Mg/2 Ml Vial) 4 mg IVPUSH Q8H PRN PRN Reason: Nausea and Vomiting Sodium Chloride (0.9 % Sodium Chloride Flush 3 Ml Syringe) [address] [facility] Last Admin: 11/17/24 11:18 Dose: 3 ml Home Medications ?Medication ?Instructions ?Recorded ?Confirmed ?Last Taken ?Type cholecalciferol (vitamin D3) 50 50 mcg PO DAILY 06/06/24 11/17/24 11/15/24 History mcg (2,000 unit) capsule magnesium 200 mg tablet 200 mg PO Q48H 06/06/24 11/17/24 11/15/24 History vitamin B complex 1 cap PO Q48H 06/06/24 11/17/24 11/15/24 History metformin 1,000 mg tablet 1,000 mg PO DAILY 11/17/24 11/17/24 11/15/24 History Physical Exam Vital Signs: Vital Signs: Last Vital Signs Temp 97.8 F 11/17/24 08:20 Pulse 89 11/17/24 12:03 Resp 19 11/17/24 12:03 BP 155/92 H 11/17/24 12:03 Pulse Ox 96 11/17/24 12:03 O2 Del Method Room Air 11/17/24 08:20 BMI result Body Mass Index 28.4 Const: General: cooperative, healthy appearing, comfortable and no acute distress Orientation/consciousness: patient oriented x3 HEENT: Face and sinus: Yes normal facial exam Mouth: moist mucous membranes Neck: Neck: Yes normal visual inspection, Yes full ROM and Yes trachea midline Chest: Chest palpation & inspection: normal inspection of the chest Resp: Effort & Inspection: normal respiratory effort, able to speak in complete sentences and no respiratory distress GI: Inspection: Yes normal to inspection Back/Spine/Pelvis: Cervical Spine: normal cervical lordosis Thoracic/Lumbar Spine: thoracic and lumbar spine normal to inspection Skin: General skin exam: no rashes or lesions noted Neuro: General: patient oriented x3, tone normal and moves all extremities Extrem: General: Yes normal to inspection and Yes capillary refill normal Results Labs 11/17/24 05:39 11/17/24 05:39 Labs: Abnormal lab results 11/16/24 11/16/24 11/17/24 Range/Units 19:55 20:20 01:29 Potassium 3.2 L D (3.3-5.1) mmol/L Chloride 109 H (96-108) mmol/L Anion Gap 10 L (12-20) POC Glucose 117 H (60-115) mg/dL Calcium 7.8 L D (8.4-10.2) mg/dL Total Protein 6.0 L (6.5-8.0) g/dL Urine Blood Large (3+) H (Negative) Urine RBC >20 H (0-2) /HPF 11/17/24 11/17/24 Range/Units 07:32 12:50 Potassium (3.3-5.1) mmol/L Chloride (96-108) mmol/L Anion Gap (12-20) POC Glucose 121 H 135 H (60-115) mg/dL Calcium (8.4-10.2) mg/dL Total Protein (6.5-8.0) g/dL Urine Blood (Negative) Urine RBC (0-2) /HPF Short CBC 11/16/24 11/17/24 Range/Units 20:20 05:39 WBC 8.3 9.0 (4.8-10.8) X10*3/uL Hgb 16.0 15.9 (14.0-18.0) g/dl Hct 45.7 46.0 (42.0-52.0) % Plt Count 176 177 (160-400) X10*3/uL BMP 11/16/24 11/17/24 20:20 05:39 Sodium 138 138 Potassium 3.2 L D 4.2 D Chloride 109 H 106 Carbon Dioxide 22 23 BUN 10 10 Creatinine 0.68 0.82 Calcium 7.8 L D 9.0 D Liver Function 11/16/24 Range/Units 20:20 Total Bilirubin 0.7 (0.0-1.0) mg/dL AST 32 (5-37) U/L ALT 30 (0-40) U/L Alkaline Phosphatase 62 (39-117) U/L Albumin 3.9 (3.5-5.0) g/dL Urine 11/16/24 Range/Units 19:55 Urine Color RED Urine Appearance Hazy Urine pH 7.0 (5.0-9.0) Ur Specific [place] 1.010 (1.005-1.025) Urine Protein See Note (Neg-Trace) mg/dL Urine Glucose (UA) See Note (Negative) mg/dL All other labs normal. Assessment and Plan (1) Gross hematuria: Status: Acute (2) Painful bladder spasm: Status: Acute Plan CBI irrigated Order placed for belladonna suppository Procedures Date of Service Date of Service: 11/17/24 Procedure Note Procedure Note: 3 way Tolentino catheter in place 22 American Tolentino catheter disconnected from collection bag. Irrigation halted. Bladder irrigated for removal of significant clot. Approximately 10 minutes taken for full irrigation. The completion of irrigation catheter bag reattached. Irrigation restarted. Irrigation may be halted once collection bed free of clot for 12 hours. P.r.n. irrigation with 100 cc for clot Hematuria Bladder Irriation CPT 72397
[2024-11-17] MEDS: Opium/Belladonna 60/16.2 mg SUPP.RECT 1 SUPP PR (14:28)
--- NOTE | 2024-11-17 15:19 | MHC.CM.PN ---
pt live alone he has a ride home had no previous services dc plan home n/s
[2024-11-17 17:18] LABS: Glucose, Whole Blood 114 mg/dL (60-115)
[2024-11-17 21:11] LABS: Glucose, Whole Blood 126 mg/dL (60-115)
[2024-11-18] MEDS: 0.9 % Sodium Chloride Flush 3 ML SYRINGE IVFLUSH ×4 (01:08→20:28)
[2024-11-18 03:11] VITALS: BP 133/76; PULSE 86; RESP 16; TEMP 37.1; O2SAT 97
[2024-11-18] MEDS: Opium/Belladonna 60/16.2 mg SUPP.RECT 1 SUPP PR (04:56)
[2024-11-18 07:17] VITALS: BP 162/85; PULSE 70; RESP 18; TEMP 36.6; O2SAT 95
[2024-11-18 07:43] LABS: Glucose, Whole Blood 167 mg/dL (60-115)
[2024-11-18 11:14] VITALS: BP 128/80; PULSE 66; RESP 18; TEMP 36.3; O2SAT 93
--- NOTE | 2024-11-18 11:20 | P.PNIM_ITS ---
Subjective Subjective Date of Service: 11/18/24 Interval History: Hematuria with clots Review of Systems has intermittent bladder cramps ,feels nausea has hematuria/small clots on cbi Review of Systems: Yes all other systems are reviewed and are negative Physical Exam 2 Exam: Exam: Appearance: Alert.? Oriented X3. cvs: rrr, [id number] . res: clear to auscultation ,no rhonchii or wheezing abd: no rebound or guarding ,nt, bs present. ext pulses present , no cyanosis . : hamturia and small clots neuro: axo3 , nonfocal. Vital Signs: Vital Signs: Last Vital Signs Temp 97.4 F 11/18/24 11:14 Pulse 66 11/18/24 11:14 Resp 18 11/18/24 11:14 BP 128/80 11/18/24 11:14 Pulse Ox 93 11/18/24 11:14 O2 Del Method Room Air 11/18/24 11:14 BMI result Body Mass Index 28.5 Objective Data Active Medications Acetaminophen (Acetaminophen 325 Mg Tablet) 650 mg PO Q6H PRN PRN Reason: Pain, Mild 1-3,fever,headache Last Admin: 11/17/24 20:03 Dose: 650 mg Documented By: ALYSA Belladonna Alkaloids/Opium (Opium/Belladonna 60/16.2 Mg Supp.Rect) 1 supp [place] BID PRN PRN Reason: bladder spasm Last Admin: 11/18/24 04:56 Dose: 1 supp Documented By: ALYSA Calcium Carbonate (Calcium Carbonate 750 Mg Tab.Chew) 750 mg PO Q4H PRN PRN Reason: Heartburn Dextrose (Dextrose 50 % 25 Gm/50 Ml Syringe) 25 gm IVPUSH Q15M PRN; Protocol PRN Reason: per Hypoglycemia Standing Ord. Glucose (Glucose Gel 15 Gm Gel..Gram.) 15 gm PO Q15M PRN; Protocol PRN Reason: per Hypoglycemia Standing Ord. Insulin Human Lispro (Insulin Lispro 100 Unit/Ml 3 Ml Vial) 0 unit SUBCUT Q6H [facility]; Protocol Last Admin: 11/18/24 08:33 Dose: 2 unit Documented By: THEO Loratadine (Loratadine 10 Mg Tablet) 10 mg PO DAILY [facility] Last Admin: 11/18/24 09:55 Dose: 10 mg Documented By: THEO Magnesium Hydroxide (Milk Of Magnesia 30 Ml Oral.Susp) 30 ml PO DAILY PRN PRN Reason: Constipation Melatonin (Melatonin 3 Mg Tablet) 6 mg PO BEDTIME PRN PRN Reason: Insomnia Metoprolol Tartrate (Metoprolol Tartrate 25 Mg Tablet) 25 mg PO BID [facility]; Protocol Last Admin: 11/18/24 08:32 Dose: 25 mg Documented By: THEO Multivitamins/Vitamin C (Multivitamin Tablet) 1 tab PO Q48H [facility] Last Admin: 11/17/24 14:28 Dose: 1 tab Documented By: ROBERTO Ondansetron HCl (Ondansetron Hcl 4 Mg/2 Ml Vial) 4 mg IVPUSH Q6H PRN PRN Reason: Nausea and Vomiting Sodium Chloride (0.9 % Sodium Chloride Flush 3 Ml Syringe) 3 ml IVFLUSH QSHIFT [facility] Last Admin: 11/18/24 08:33 Dose: 3 ml Documented By: THEO Labs 11/17/24 05:39 11/17/24 05:39 Labs: Laboratory Results - last 24 hr 11/17/24 11/17/24 11/17/24 12:50 17:13 20:49 POC Glucose 135 H 114 126 H 11/18/24 07:20 POC Glucose 167 H Assessment and Plan (1) Gross hematuria: Status: Acute Plan 79-year-old male with pertinent history of hypertension, ibr-zerguaj-qorxbogrv type 2 diabetes mellitus, mood disorder who presents to the emergency department for evaluation of hematuria. Hematuria, painless: h/h stable hematuria/small clots Imaging with hyperdense material in bladder plan: has continuous bladder irrigation. Urology eval appreciated: continue cbi, continue opium/belladonna supp for bladder carmps and zofran for nausea. acute Hypokalemia: Repleted/resolved. Pyk-rgolxom-gjhmstdbh diabetes mellitus: Initiating Accu-Cheks with sliding scale insulin every 6 hours while patient is NPO Hypertension: Resume metoprolol once no longer NPO DVT prophylaxis: SCDs Full code. Discussed with patient at bedside onging need hospital stay for evaluation of painless hematuria, close monitoring of hemodynamics, CBI (as above), which is not possible in a lesser acute setting. Specialist consult pending Quality Stroke Does the patient have a stroke diagnosis?: No VTE Prior VTE?: No VTE Risk Level:: Medical - moderate - high VTE Device Contraindication: N/A - Device Ordered VTE Drug Contraindication: Treatment Not Indicated
[2024-11-18 11:42] LABS: Glucose, Whole Blood 161 mg/dL (60-115)
--- NOTE | 2024-11-18 14:48 | P.PNUR_ITS ---
Subjective Subjective Date of Service: 11/21/24 Interval history: Significantly reduced hematuria CBI clamped Spasms under control If remains free of urine for 24 hours will be able to discharge Physical Exam 2 Vital Signs: Vital Signs: Last Vital Signs Temp 97.4 F 11/18/24 11:14 Pulse 66 11/18/24 11:14 Resp 18 11/18/24 11:14 BP 128/80 11/18/24 11:14 Pulse Ox 93 11/18/24 11:14 O2 Del Method Room Air 11/18/24 11:14 BMI result Body Mass Index 28.5 Const: General: cooperative, healthy appearing, comfortable and no acute distress Orientation/consciousness: patient oriented x3 HEENT: Face and sinus: Yes normal facial exam Mouth: moist mucous membranes Neck: Neck: Yes normal visual inspection, Yes full ROM and Yes trachea midline Chest: Chest palpation & inspection: normal inspection of the chest Resp: Effort & Inspection: normal respiratory effort, able to speak in complete sentences and no respiratory distress GI: Inspection: Yes normal to inspection Back/Spine/Pelvis: Cervical Spine: normal cervical lordosis Thoracic/Lumbar Spine: thoracic and lumbar spine normal to inspection Skin: General skin exam: no rashes or lesions noted Neuro: General: patient oriented x3, tone normal and moves all extremities Extrem: General: Yes normal to inspection and Yes capillary refill normal Urology Results Labs 11/21/24 08:24 11/21/24 08:24 Labs: Laboratory Results - last 24 hr 11/17/24 11/17/24 11/18/24 17:13 20:49 07:20 POC Glucose 114 126 H 167 H 11/18/24 11:13 POC Glucose 161 H Progress Note: A&P Assessment and plan (1) Gross hematuria: Status: Acute Plan Continue supportive care Time Spent With Patient Time: Total time managing care of this patient today ____ minutes. Progress Note: Quality Stroke Does the patient have a stroke diagnosis?: No
[2024-11-18 15:31] VITALS: BP 154/81; PULSE 81; RESP 16; TEMP 36.9; O2SAT 95
[2024-11-18 16:05] LABS: Glucose, Whole Blood 155 mg/dL (60-115)
[2024-11-18 20:22] VITALS: BP 133/75; PULSE 83; RESP 18; TEMP 36.4; O2SAT 95
[2024-11-18 21:49] LABS: Glucose, Whole Blood 152 mg/dL (60-115)
[2024-11-18 23:43] VITALS: BP 137/81; PULSE 67; RESP 20; TEMP 35.6; O2SAT 94
[2024-11-19] VITALS (8 sets, daily range): BP systolic 112–146; BP diastolic 70–86; PULSE 69–84; RESP 14–20; TEMP 36.3–36.8; O2SAT 95–96
[2024-11-19 07:20] LABS: Glucose, Whole Blood 136 mg/dL (60-115)
[2024-11-19] MEDS: 0.9 % Sodium Chloride Flush 3 ML SYRINGE IVFLUSH ×3 (07:51→21:07)
--- NOTE | 2024-11-19 11:57 | P.PNIM_ITS ---
Subjective Subjective Date of Service: 11/19/24 Interval History: hematuria, cramps Review of Systems as above Review of Systems: Yes all other systems are reviewed and are negative Physical Exam 2 Exam: Exam: Appearance: Alert.? Oriented X3. cvs: [id number], [id number] . res: clear to auscultation ,no rhonchii or wheezing abd: no rebound or guarding ,nt, bs present. ext pulses present , no cyanosis . : hamturia and small clots neuro: axo3 , nonfocal. Vital Signs: Vital Signs: Last Vital Signs Temp 98.2 F 11/19/24 11:30 Pulse 80 11/19/24 11:30 Resp 18 11/19/24 11:30 BP 112/73 11/19/24 11:30 Pulse Ox 95 11/19/24 11:30 O2 Del Method Room Air 11/19/24 08:00 BMI result Body Mass Index 28.5 Objective Data Active Medications Acetaminophen (Acetaminophen 325 Mg Tablet) 650 mg PO Q6H PRN PRN Reason: Pain, Mild 1-3,fever,headache Last Admin: 11/18/24 14:51 Dose: 650 mg Documented By: THEO Belladonna Alkaloids/Opium (Opium/Belladonna 60/16.2 Mg Supp.Rect) 1 supp [place] BID PRN PRN Reason: bladder spasm Last Admin: 11/18/24 04:56 Dose: 1 supp Documented By: ALYSA Calcium Carbonate (Calcium Carbonate 750 Mg Tab.Chew) 750 mg PO Q4H PRN PRN Reason: Heartburn Dextrose (Dextrose 50 % 25 Gm/50 Ml Syringe) 25 gm IVPUSH Q15M PRN; Protocol PRN Reason: per Hypoglycemia Standing Ord. Glucose (Glucose Gel 15 Gm Gel..Gram.) 15 gm PO Q15M PRN; Protocol PRN Reason: per Hypoglycemia Standing Ord. Hydromorphone HCl (Hydromorphone Hcl 0.5 Mg/0.5 Ml Syringe) 0.5 mg IVPUSH Q4H PRN; Protocol PRN Reason: Pain, Severe (Pain Scale 7-10) Last Admin: 11/19/24 11:04 Dose: 0.5 mg Documented By: LUCIE Insulin Human Lispro (Insulin Lispro 100 Unit/Ml 3 Ml Vial) 0 unit SUBCUT [facility]; Protocol Last Admin: 11/19/24 07:37 Dose: Not Given Documented By: MELINDA Non-Admin Reason: No Insulin Coverage Loratadine (Loratadine 10 Mg Tablet) 10 mg PO DAILY [facility] Last Admin: 11/19/24 07:42 Dose: 10 mg Documented By: MELINDA Magnesium Hydroxide (Milk Of Magnesia 30 Ml Oral.Susp) 30 ml PO DAILY PRN PRN Reason: Constipation Melatonin (Melatonin 3 Mg Tablet) 6 mg PO BEDTIME PRN PRN Reason: Insomnia Metoprolol Tartrate (Metoprolol Tartrate 25 Mg Tablet) 25 mg PO BID [facility]; Protocol Last Admin: 11/19/24 07:41 Dose: 25 mg Documented By: MELINDA Multivitamins/Vitamin C (Multivitamin Tablet) 1 tab PO Q48H [facility] Last Admin: 11/17/24 14:28 Dose: 1 tab Documented By: ROBERTO Ondansetron HCl (Ondansetron Hcl 4 Mg/2 Ml Vial) 4 mg IVPUSH Q6H PRN PRN Reason: Nausea and Vomiting Last Admin: 11/18/24 14:27 Dose: 4 mg Documented By: THEO Sodium Chloride (0.9 % Sodium Chloride Flush 3 Ml Syringe) 3 ml IVFLUSH QSHIFT [facility] Last Admin: 11/19/24 07:51 Dose: 3 ml Documented By: MELINDA Labs 11/17/24 05:39 11/17/24 05:39 Labs: Laboratory Results - last 24 hr 11/18/24 11/18/24 11/19/24 15:55 20:18 07:05 POC Glucose 155 H 152 H 136 H Assessment and Plan (1) Gross hematuria: Status: Acute Plan 79-year-old male with pertinent history of hypertension, [id number] type 2 diabetes mellitus, mood disorder who presents to the emergency department for evaluation of hematuria. Hematuria, painless: h/h stable hematuria/small clots Imaging with hyperdense material in bladder plan: has continuous bladder irrigation. Urology eval appreciated: continue cbi, continue opium/belladonna supp for bladder carmps and zofran for nausea.added iv dilaudid also acute Hypokalemia: Repleted/resolved. [id number] diabetes mellitus: Initiating Accu-Cheks with sliding scale insulin every 6 hours while patient is NPO Hypertension: Resume metoprolol once no longer NPO DVT prophylaxis: SCDs Full code. Discussed with patient at bedside onging need hospital stay for evaluation of painless hematuria, close monitoring of hemodynamics, CBI (as above), which is not possible in a lesser acute setting. Specialist consult pending Quality Stroke Does the patient have a stroke diagnosis?: No VTE Prior VTE?: No VTE Risk Level:: Medical - moderate - high VTE Device Contraindication: N/A - Device Ordered VTE Drug Contraindication: Treatment Not Indicated
[2024-11-19 12:29] LABS: Glucose, Whole Blood 169 mg/dL (60-115)
[2024-11-19 16:49] LABS: Glucose, Whole Blood 180 mg/dL (60-115)
[2024-11-19 20:02] LABS: Glucose, Whole Blood 136 mg/dL (60-115)
[2024-11-20] VITALS (9 sets, daily range): BP systolic 103–174; BP diastolic 64–108; PULSE 73–150; RESP 14–25; TEMP 36.2–37.3; O2SAT 93–97
--- NOTE | 2024-11-20 | ECG_ITS ---
Test Reason : TACHYCARDIA Blood Pressure : */* mmHG Vent. Rate : 149 BPM Atrial Rate : * BPM P-R Int : * ms QRS Dur : 98 ms QT Int : 298 ms P-R-T Axes : * -62 110 degrees QTcB Int : 469 ms Atrial fibrillation with rapid ventricular response Left axis deviation Incomplete right bundle branch block Inferior infarct , age undetermined ST & T wave abnormality, consider lateral ischemia Abnormal ECG No previous ECGs available Referred By: Lenka Palumbo Electronically Signed By: Bogdan Worthy
--- NOTE | 2024-11-20 04:18 | PC.NURSE ---
Pt seen on bed alert and oriented, maintained on cont CBI with output as punch red to red tinged, pt has on and off bladder spasm , once was severe and CBI flow was scarce, manual irrigation done with large clots obtained, pt tolerated and felt slight relief, prn Dilaudid given with effect.
[2024-11-20 07:37] LABS: Glucose, Whole Blood 143 mg/dL (60-115)
[2024-11-20] MEDS: 0.9 % Sodium Chloride Flush 3 ML SYRINGE IVFLUSH ×2 (07:51→14:30)
[2024-11-20 08:55] LABS: Hematocrit 50.3 % (42.0-52.0); Hemoglobin 17.4 g/dl (14.0-18.0)
[2024-11-20 09:14] LABS: Anion Gap 18 (12-20); Blood Urea Nitrogen 25 mg/dL (9-16); Calcium 9.6 mg/dL (8.4-10.2); Carbon Dioxide 23 mmol/L (22-29); Chloride 104 mmol/L (96-108); Creatinine Clr Calc Pharmacy 79.0; Estimated Glomerular Filt Rate > 60; Potassium 3.8 mmol/L (3.3-5.1); Sodium 141 mmol/L (135-145)
[2024-11-20 11:40] LABS: Glucose, Whole Blood 167 mg/dL (60-115)
--- NOTE | 2024-11-20 14:39 | PC.NURSE ---
1415 pt states can you check my heart it feels heavy , Hr checked to be 150 pt diaphoretic , at bedside , 2 L o2 applied 02 96 percent . EKG done , pt being transferred to [facility] . Dilaudid given at 1400 for bladder pain .
[2024-11-20 15:11] LABS: Hematocrit 49.8 % (42.0-52.0); Hemoglobin 17.7 g/dl (14.0-18.0); Mean Corpuscular HGB Conc 35.5 g/dl (31.0-36.0); Mean Corpuscular Hemoglobin 30.4 pg (27.0-33.0); Mean Corpuscular Volume 85.4 fL (80.0-98.0); NRBC Abs Auto 0.000 X10*3/uL (0.0-0.012); NRBC Pct Auto 0.0 /100WBC (0.0-0.2); Platelet Count 226 X10*3/uL (160-400); Red Blood Count 5.83 X10*6/uL (4.60-5.80); White Blood Count 12.8 X10*3/uL (4.8-10.8)
[2024-11-20 15:21] LABS: Anion Gap 17 (12-20); Blood Urea Nitrogen 29 mg/dL (9-16); Calcium 9.6 mg/dL (8.4-10.2); Carbon Dioxide 23 mmol/L (22-29); Chloride 105 mmol/L (96-108); Creatinine Clr Calc Pharmacy 63.6; Estimated Glomerular Filt Rate > 60; Potassium 4.0 mmol/L (3.3-5.1); Sodium 141 mmol/L (135-145)
[2024-11-20 15:30] LABS: Troponin-I High Sensitivity 7.8 ng/L (<3.5-35.0)
[2024-11-20 15:44] LABS: Thyroid Stimulating Hormone 1.34 uIU/mL (0.32-4.0)
[2024-11-20 16:36] LABS: Glucose, Whole Blood 197 mg/dL (60-115)
[2024-11-20] MEDS: Lactated Ringers 1,000 ML 100 ML IVCONT (16:59)
--- NOTE | 2024-11-20 17:01 | P.PNIM_ITS ---
Subjective Subjective Date of Service: 11/20/24 Interval History: Hematuria, AFib with RVR, mild heaviness in the chest Review of Systems Patient was having pain with the CBI, draining well otherwise have pinkish urine. This afternoon patient become very tachycardic in heart rate of 150-160, had some heaviness with the palpitations. Given Dilaudid his symptoms improved except still has tachycardia similar range. In addition he is having urinary cramping that causes more pain. Physical Exam 2 Exam: Exam: Appearance: Alert.? Oriented X3. cvs: [id number], [id number] . res: clear to auscultation ,no rhonchii or wheezing abd: no rebound or guarding ,nt, bs present. ext pulses present , no cyanosis . : hamturia and small clots neuro: axo3 , nonfocal. Vital Signs: Vital Signs: Last Vital Signs Temp 98.0 F 11/20/24 16:00 Pulse 144 H 11/20/24 16:00 Resp 18 11/20/24 16:00 BP 144/108 H 11/20/24 16:00 Pulse Ox 96 11/20/24 16:00 O2 Del Method Room Air 11/20/24 16:00 O2 Flow Rate 2 11/20/24 14:38 BMI result Body Mass Index 28.5 Objective Data Active Medications Acetaminophen (Acetaminophen 325 Mg Tablet) 650 mg PO Q6H PRN PRN Reason: Pain, Mild 1-3,fever,headache Last Admin: 11/18/24 14:51 Dose: 650 mg Documented By: THEO Belladonna Alkaloids/Opium (Opium/Belladonna 60/16.2 Mg Supp.Rect) 1 supp [place] BID PRN PRN Reason: bladder spasm Last Admin: 11/18/24 04:56 Dose: 1 supp Documented By: ALYSA Calcium Carbonate (Calcium Carbonate 750 Mg Tab.Chew) 750 mg PO Q4H PRN PRN Reason: Heartburn Ceftriaxone Sodium (Ceftriaxone Sodium 1 Gm Vial) 1 gm IVPUSH Q24H [facility] Dextrose (Dextrose 50 % 25 Gm/50 Ml Syringe) 25 gm IVPUSH Q15M PRN; Protocol PRN Reason: per Hypoglycemia Standing Ord. Digoxin (Digoxin 0.5 Mg/2 Ml Ampul) 0.25 mg IVPUSH Q6H [facility]; Protocol Stop: 11/20/24 22:16 Glucose (Glucose Gel 15 Gm Gel..Gram.) 15 gm PO Q15M PRN; Protocol PRN Reason: per Hypoglycemia Standing Ord. Hydromorphone HCl (Hydromorphone Hcl 0.5 Mg/0.5 Ml Syringe) 0.5 mg IVPUSH Q4H PRN; Protocol PRN Reason: Pain, Severe (Pain Scale 7-10) Last Admin: 11/20/24 14:30 Dose: 0.5 mg Documented By: ELGIN Lactated Ringer's (Lr) 1,000 mls @ 100 mls/hr IVCONT .Q10H [facility] Insulin Human Lispro (Insulin Lispro 100 Unit/Ml 3 Ml Vial) 0 unit SUBCUT QIDACHS [facility]; Protocol Last Admin: 11/20/24 11:43 Dose: 2 unit Documented By: ELGIN Loratadine (Loratadine 10 Mg Tablet) 10 mg PO DAILY [facility] Last Admin: 11/20/24 07:49 Dose: 10 mg Documented By: ELGIN Magnesium Hydroxide (Milk Of Magnesia 30 Ml Oral.Susp) 30 ml PO DAILY PRN PRN Reason: Constipation Melatonin (Melatonin 3 Mg Tablet) 6 mg PO BEDTIME PRN PRN Reason: Insomnia Metoprolol Tartrate (Metoprolol Tartrate 25 Mg Tablet) 25 mg PO BID [facility]; Protocol Last Admin: 11/20/24 07:49 Dose: 25 mg Documented By: ELGIN Multivitamins/Vitamin C (Multivitamin Tablet) 1 tab PO Q48H [facility] Last Admin: 11/19/24 13:13 Dose: 1 tab Documented By: LUCIE Ondansetron HCl (Ondansetron Hcl 4 Mg/2 Ml Vial) 4 mg IVPUSH Q6H PRN PRN Reason: Nausea and Vomiting Last Admin: 11/18/24 14:27 Dose: 4 mg Documented By: FOSTEKLourdes Sodium Chloride (0.9 % Sodium Chloride Flush 3 Ml Syringe) 3 ml IVFLUSH QSHIFT [facility] Last Admin: 11/20/24 14:30 Dose: 3 ml Documented By: ELGIN Labs 11/20/24 14:59 11/20/24 14:59 Labs: Laboratory Results - last 24 hr 08/11/25 08/12/25 08/12/25 19:27 07:33 08:14 MCV MCH MCHC RDW Plt Count MPV Absolute Nucleated RBC Nucleated RBC % (auto) Anion Gap 18 Estim Creat Clear Calc 79.0 Estimated GFR > 60 POC Glucose 136 H 143 H Random Glucose 139 H Calcium 9.6 D TSH 11/20/24 11/20/24 11/20/24 11:26 14:59 16:31 MCV 85.4 MCH 30.4 MCHC 35.5 RDW 13.2 Plt Count 226 D MPV 9.7 Absolute Nucleated RBC 0.000 Nucleated RBC % (auto) 0.0 Anion Gap 17 Estim Creat Clear Calc 63.6 Estimated GFR > 60 POC Glucose 167 H 197 H Random Glucose 169 H Calcium 9.6 TSH 1.34 Assessment and Plan (1) Gross hematuria: Status: Acute Plan 79-year-old male with pertinent history of hypertension, [id number]-kweniurbf type 2 diabetes mellitus, mood disorder who presents to the emergency department for evaluation of hematuria. New onset AFib with RVR: TSH normal Electrolyte seems fine Troponin x1 negative, EKG seems AFib with RVR, patient says no chest pain. Possible in the setting of hematuria with pain/cramping Continue IV pain medication, cramping medication-opium/belladonna supp. Patient received IV metoprolol x2 2.5 mg-heart rate improved to 130s, in addition we also added digoxin loading 0.25 time x4, continue home metoprolol p.o. also. Monitor on tele In addition added echo, cardiology evaluation. Currently defer anticoagulation due to persistent hematuria. Hematuria. h/h stable hematuria/small clots Imaging with hyperdense material in bladder plan: has continuous bladder irrigation. Urology eval appreciated: continue cbi, continue opium/belladonna supp for bladder carmps and zofran for nausea.added iv dilaudid also ? urinary infection: Tachycardia due to AFib Tachypnea in the setting of anxiety/pain Not septic at the present No fever Mild leukocytosis probably reactive Plan: We will check lactic acid, urine/blood culture, we will give with the benefit of doubt and start antibiotics. acute Hypokalemia: Repleted/resolved. Wfd-[id number]-ytyqxiaif diabetes mellitus: Initiating Accu-Cheks with sliding scale insulin every 6 hours while patient is NPO Hypertension: Resume metoprolol once no longer NPO DVT prophylaxis: SCDs Full code. Discussed with patient at bedside onging need hospital stay for evaluation of pain/hematuria, close monitoring of hemodynamics, CBI (as above), which is not possible in a lesser acute setting. Specialist consult pending Quality Stroke Does the patient have a stroke diagnosis?: No VTE Prior VTE?: No VTE Risk Level:: Medical - moderate - high VTE Device Contraindication: N/A - Device Ordered VTE Drug Contraindication: Treatment Not Indicated
--- NOTE | 2024-11-20 18:58 | PC.NURSE ---
pt arrived onto unit around 1500 accompanied by med/surgical nurse and PROCESS MANUFACTURING ENGINEER. pts HR in 150s-160s. pt reporting no CP, no chest heaviness, no SOB, on 2L NC. pt mildly diaphoretic to touch, visually uncomfortable and reporting pain from bladder spasms, able to wean to RA with sats in high 90s. PRN pain med and metoprolol given prior to pt arriving to unit, see JUN. irrigated 1x with small amount of clots. pt stated bladder spasms improved after irrigation. HR increased to 170s during irriagation, Dr radford aware. urine culture unable to be collected d/t pt having CBI and sample being diluted with NaCl, Dr radford notified and order was cancelled, ABX given per JUN. 1800 HR still 150s-160s asymptomatic with no bladder spasms at this time. per cardiology and Dr. radford, no interventions at this time d/t no symptoms. per dr. radford if pt remains tachycardic in 1 hr or has symptoms TT night provider. message passed along to Martín CLAIRE during shift report
[2024-11-20 20:39] LABS: Glucose, Whole Blood 202 mg/dL (60-115)
[2024-11-21] VITALS (8 sets, daily range): BP systolic 104–136; BP diastolic 58–78; PULSE 60–119; RESP 16–18; TEMP 36.2–36.6; O2SAT 94–98
[2024-11-21] MEDS: 0.9 % Sodium Chloride Flush 3 ML SYRINGE IVFLUSH ×3 (00:03→15:56)
[2024-11-21] MEDS: Lactated Ringers 1,000 ML 100 ML IVCONT ×3 (02:43→23:59)
--- NOTE | 2024-11-21 07:00 | CA_ITS ---
Transthoracic Echocardiogram Patient (Last, First, Middle): Cristiano Friedman E Gender: Male Date of : 1945 Age: 79 Procedure Date: 11/21/2024 Procedure Type: Transthoracic Echocardiogram Location: [facility] Height: 180.34 cm Weight: 92.53 kg BSA: 2.13 m2 Heart Rate: bpm BP: 111 / 75 mmHg Electrical Continuity Inspector: /RC Referring MD: Lenka Palumbo MD Symptoms: afib new Study Quality: Fair ECG Rhythm: Atrial Fibrillation Conclusions: - Normal left ventricular size and systolic function. There is mildly increased left ventricular wall thickness. The visually estimated ejection fraction is between 60-65%. - Normal right ventricular cavity size and systolic function. - The left atrium is normal in size. The right atrium was not well visualized. Findings Left Ventricle Normal left ventricular size and systolic function. There is mildly increased left ventricular wall thickness. The visually estimated ejection fraction is between 60-65%. Regional wall motion abnormalities can not be excluded due to suboptimal endocardial definition. Diastolic function is indeterminate on the basis of available data. Right Ventricle Normal right ventricular cavity size and systolic function. Atria The left atrium is normal in size. The right atrium was not well visualized. Aortic Valve There is mild calcification of the aortic valve. There is no aortic valve stenosis. There is no aortic valve regurgitation. Mitral Valve The mitral valve appears normal. There is no mitral valve regurgitation. There is no mitral valve stenosis. Pulmonic Valve The pulmonic valve is likely normal. Tricuspid Valve Normal tricuspid valve structure. There is no tricuspid valve regurgitation. Normal right atrial pressure. There is no evidence of pulmonary hypertension. Great Vessels All visible segments of the aorta are normal in size. Venous The inferior vena cava is normal in size and collapses greater than 50% with inspiration. Pericardium/Pleural There is no evidence of pericardial effusion. Prior Study Comparison No prior study available for comparison. Measurements 2D Linear Measurements IVSd: 1.20 0.6-0.9/0.6-1.0 cm LVIDd: 2.61 3.9-5.3/4.2-5.9 cm LVIDd Index: 1.23 2.4-3.2/2.2-3.1 cm/m2 LVIDs: 2.00 2.0-3.6 cm LVPWd: 1.10 0.7-1.1 cm LA Diam: 3.20 2.7-3.8/3.0-4.0 cm LAIDs Index: 1.50 1.5-2.3 cm/m2 LV Mass: 168.09 67-162/88-224 g LV Mass Index: 78.92 43-95/49-115 g/m2 LVOT Diam: 2.30 3.0+(-)1.3 cm 2D Systolic Function EF 4C: 63.80 >55% EF 2C: 65.40 >55% EF BiP: 62.50 >55% Mitral Valve MV Pk E: 0.79 MV Decel Time: 121.00 E'Lateral: 13.80 E'Medial: 8.92 E/E' Med: 8.80 E/E' Lat: 5.70 PHT: 36.00 MVA PHT: 6.11 Decel [place]: 6.77 Aortic Valve AoV Pk Rashawn: 1.54 AoV Mn Rashawn: 0.97 AoV VTI: 0.18 AoV Pk Grad: 9.00 Aov Mn Grad: 5.00 ANA Cont.VTI: 3.16 LVOT LVOT Pk Rashawn: 0.94 LVOT Mn Rashawn: 0.65 LVOT VTI: 0.14 LVOT Pk Grad: 4.00 LVOT Mn Grad: 2.00 LVOT Diam: 2.30 LVOT Area: 4.15 Diastolic Function MV Pk E: 0.79 E'Medial: 8.92 E/E' Med: 8.80 E' Laterial: 13.80 E/E' Lat: 5.70 Tricuspid Valve TR Pk Rashawn: 1.81 TR Pk Grad: 13.00 RA Press: 3.00 RVSP: 16.00 Great Vessels Aorta Sinus of Valsalva: 3.50 2.0-3.5 cm Ao Asc: 3.50 2.1-3.4 cm Pulmonary Valve PV Pk Rashawn: 1.06 Peak PV Grad: 4.00 Updated in Other Vendor System with Status of Final Bogdan Worthy MD electronically signed on 11/21/2024 3:41:39 PM with status of Final
[2024-11-21 07:14] LABS: Glucose, Whole Blood 132 mg/dL (60-115)
[2024-11-21 08:42] LABS: Hematocrit 49.2 % (42.0-52.0); Hemoglobin 16.9 g/dl (14.0-18.0); Mean Corpuscular HGB Conc 34.3 g/dl (31.0-36.0); Mean Corpuscular Hemoglobin 30.0 pg (27.0-33.0); Mean Corpuscular Volume 87.2 fL (80.0-98.0); NRBC Abs Auto 0.000 X10*3/uL (0.0-0.012); NRBC Pct Auto 0.0 /100WBC (0.0-0.2); Platelet Count 217 X10*3/uL (160-400); Red Blood Count 5.64 X10*6/uL (4.60-5.80); White Blood Count 10.3 X10*3/uL (4.8-10.8)
[2024-11-21 09:01] LABS: Anion Gap 17 (12-20); Blood Urea Nitrogen 28 mg/dL (9-16); Calcium 9.4 mg/dL (8.4-10.2); Carbon Dioxide 26 mmol/L (22-29); Chloride 103 mmol/L (96-108); Creatinine Clr Calc Pharmacy 79.0; Estimated Glomerular Filt Rate > 60; Potassium 4.0 mmol/L (3.3-5.1); Sodium 142 mmol/L (135-145)
[2024-11-21 11:10] LABS: Glucose, Whole Blood 139 mg/dL (60-115)
--- NOTE | 2024-11-21 11:49 | PM.CNCAR ---
History of Present Illness History of Present Illness Date of Service: 11/21/24 Requesting physician: Lenka Palumbo Chief complaint: Hematuria, Afib Narrative: 79-year-old gentleman who we have been asked to see for AFib with RVR. He is here for bladder stones and hematuria. Hematuria is clearing up with bladder irrigation. He developed AFib with RVR yesterday and has been difficult to control. He is getting bladder spasms which are quite severe and gets RVR due to pain also. No palpitations, shortness of breath or chest discomfort. He is on metoprolol and was loaded with digoxin. Not on anticoagulation due to hematuria. [facility] Past Medical History Medical History Vitamin D deficiency Type 2 diabetes mellitus with hemoglobin A1c goal of less than 7.0% Insomnia Heart murmur PSA elevation Encounter for colorectal cancer screening using Cologuard test (~08/31/22) Type 2 diabetes mellitus Essential tremor Tubular adenoma BPH (benign prostatic hyperplasia) Ureteral stone History of rib fracture Lumbar herniated disc [place]-Schlatter's disease Mild hypercholesterolemia Hypertension Family History Family History Father No problems noted. Mother No problems noted. Surgical History Surgical History History of colonoscopy (~04/20/16) History of prostate surgery Social History Social History Household Members: None Housing: Other Housing Other:: mobile home Do you presently have visiting nurse or other home services: No Alcohol intake: current Alcohol intake frequency: does not drink Patient Tobacco Use Status: Current everyday Tobacco user Tobacco use type: Cigarette Cigarette Packs Per Day: 0.5 Cigarettes Per Day: 10.0 e-Cigarette/Vaping Use: Never Used Second Hand Smoke Exposure: No Substance Use Type: Marijuana service: No Current occupational status: retired Cognitive needs: No Hearing needs: No Vision needs: No Meds Allergies Allergy/AdvReac Type Severity Reaction Status Date / Time adhesive tape AdvReac blisters Verified 11/16/24 19:33 Active Medications: Current Medications Acetaminophen (Acetaminophen 325 Mg Tablet) 650 mg PO Q6H PRN PRN Reason: Pain, Mild 1-3,fever,headache Last Admin: 11/18/24 14:51 Dose: 650 mg Belladonna Alkaloids/Opium (Opium/Belladonna 60/16.2 Mg Supp.Rect) 1 supp [place] BID PRN PRN Reason: bladder spasm Last Admin: 11/18/24 04:56 Dose: 1 supp Calcium Carbonate (Calcium Carbonate 750 Mg Tab.Chew) 750 mg PO Q4H PRN PRN Reason: Heartburn Ceftriaxone Sodium (Ceftriaxone Sodium 1 Gm Vial) 1 gm IVPUSH Q24H [facility] Last Admin: 11/20/24 18:17 Dose: 1 gm Dextrose (Dextrose 50 % 25 Gm/50 Ml Syringe) 25 gm IVPUSH Q15M PRN; Protocol PRN Reason: per Hypoglycemia Standing Ord. Digoxin (Digoxin 0.125 Mg Tablet) 0.125 mg PO DAILY [facility]; Protocol Glucose (Glucose Gel 15 Gm Gel..Gram.) 15 gm PO Q15M PRN; Protocol PRN Reason: per Hypoglycemia Standing Ord. Hydromorphone HCl (Hydromorphone Hcl 0.5 Mg/0.5 Ml Syringe) 0.5 mg IVPUSH Q4H PRN; Protocol PRN Reason: Pain, Severe (Pain Scale 7-10) Last Admin: 11/21/24 04:14 Dose: 0.5 mg Lactated Ringer's (Lr) 1,000 mls @ 100 mls/hr IVCONT .Q10H [facility] Last Admin: 11/21/24 11:39 Dose: 100 mls/hr Magnesium Sulfate/Dextrose (Magnesium Sulfate/D5w) 1 gm in 100 mls @ 100 mls/hr IV ONCE ONE Stop: 11/21/24 11:57 Last Admin: 11/21/24 11:39 Dose: 100 mls/hr Insulin Human Lispro (Insulin Lispro 100 Unit/Ml 3 Ml Vial) 0 unit SUBCUT QIDACHS [facility]; Protocol Last Admin: 11/21/24 11:41 Dose: Not Given Loratadine (Loratadine 10 Mg Tablet) 10 mg PO DAILY [facility] Last Admin: 11/21/24 09:14 Dose: 10 mg Magnesium Hydroxide (Milk Of Magnesia 30 Ml Oral.Susp) 30 ml PO DAILY PRN PRN Reason: Constipation Melatonin (Melatonin 3 Mg Tablet) 6 mg PO BEDTIME PRN PRN Reason: Insomnia Metoprolol Tartrate (Metoprolol Tartrate 25 Mg Tablet) 25 mg PO BID [facility]; Protocol Last Admin: 11/21/24 09:14 Dose: 25 mg Multivitamins/Vitamin C (Multivitamin Tablet) 1 tab PO Q48H [facility] Last Admin: 11/19/24 13:13 Dose: 1 tab Ondansetron HCl (Ondansetron Hcl 4 Mg/2 Ml Vial) 4 mg IVPUSH Q6H PRN PRN Reason: Nausea and Vomiting Last Admin: 11/18/24 14:27 Dose: 4 mg Sodium Chloride (0.9 % Sodium Chloride Flush 3 Ml Syringe) 3 ml IVFLUSH QSHIFT [facility] Last Admin: 11/21/24 09:14 Dose: 3 ml Home Medications ?Medication ?Instructions ?Recorded ?Confirmed ?Last Taken ?Type cholecalciferol (vitamin D3) 50 50 mcg PO DAILY 06/06/24 11/17/24 11/15/24 History mcg (2,000 unit) capsule magnesium 200 mg tablet 200 mg PO Q48H 06/06/24 11/17/24 11/15/24 History vitamin B complex 1 cap PO Q48H 06/06/24 11/17/24 11/15/24 History metformin 1,000 mg tablet 1,000 mg PO DAILY 11/17/24 11/17/24 11/15/24 History Physical Exam Vital Signs: Vital Signs: Last Vital Signs Temp 97.2 F 11/21/24 11:12 Pulse 65 11/21/24 11:12 Resp 17 11/21/24 11:12 BP 104/65 11/21/24 11:12 Pulse Ox 95 11/21/24 11:12 O2 Del Method Room Air 11/21/24 11:12 O2 Flow Rate 2 11/20/24 14:38 BMI result Body Mass Index 28.5 GENERAL APPEARANCE: in no acute distress, pleasant. NECK: no carotid bruit, no jugular venous distention. SKIN: no suspicious lesions, warm and dry. HEART: no murmurs, irregular rate and rhythm. LUNGS: clear to auscultation bilaterally. ABDOMEN: soft, nontender. EXTREMITIES: no edema. PERIPHERAL PULSES: equal. NEUROLOGIC: No gross deficits, AAO X 3 Objective Labs and Meds 11/21/24 08:24 11/21/24 08:24 Lab results: Laboratory Results - last 24 hr 11/20/24 11/20/24 11/20/24 14:59 16:31 16:47 WBC 12.8 H RBC 5.83 H Hgb 17.7 Hct 49.8 MCV 85.4 MCH 30.4 MCHC 35.5 RDW 13.2 Plt Count 226 D MPV 9.7 Absolute Nucleated RBC 0.000 Nucleated RBC % (auto) 0.0 Sodium 141 Potassium 4.0 Chloride 105 Carbon Dioxide 23 Anion Gap 17 BUN 29 H Creatinine 1.13 Estim Creat Clear Calc 63.6 Estimated GFR > 60 POC Glucose 197 H Random Glucose 169 H Lactic Acid 1.6 Calcium 9.6 Troponin I High Sens 7.8 TSH 1.34 11/20/24 11/21/24 11/21/24 20:35 07:10 08:24 WBC 10.3 RBC 5.64 Hgb 16.9 Hct 49.2 MCV 87.2 MCH 30.0 MCHC 34.3 RDW 13.1 Plt Count 217 MPV 10.1 Absolute Nucleated RBC 0.000 Nucleated RBC % (auto) 0.0 Sodium 142 Potassium 4.0 Chloride 103 Carbon Dioxide 26 Anion Gap 17 BUN 28 H Creatinine 0.91 Estim Creat Clear Calc 79.0 Estimated GFR > 60 POC Glucose 202 H 132 H Random Glucose 150 H Lactic Acid Calcium 9.4 Troponin I High Sens TSH 11/21/24 11:07 WBC RBC Hgb Hct MCV MCH MCHC RDW Plt Count MPV Absolute Nucleated RBC Nucleated RBC % (auto) Sodium Potassium Chloride Carbon Dioxide Anion Gap BUN Creatinine Estim Creat Clear Calc Estimated GFR POC Glucose 139 H Random Glucose Lactic Acid Calcium Troponin I High Sens TSH Imaging Radiologist's impression: Impressions Chest X-Ray 11/20/24 15:24 IMPRESSION: No acute airspace disease. Multilevel spondylosis. Electronically signed by: Umair Conley MD 11/20/2024 03:47 PM EDT Assessment and Plan (1) PAF (paroxysmal atrial fibrillation): Status: Acute Plan 79 year gentleman with AFib with RVR in the setting of bladder stones and hematuria. Hematuria is improving at this stage with bladder irrigation. Continue metoprolol p.o.. He was loaded with digoxin and can be started on digoxin 125 mcg daily. If blood pressure allows diltiazem can be tried to down the line. He is asymptomatic from AFib point of view and has reasons for sympathetic surge including bladder spasms. It maybe difficult to control his AFib till the underlying issues settled down. His CHADS-VASc score is high and he will eventually need anticoagulation for currently due to hematuria can not be on any anticoagulation. Thank you for allowing me to participate in the care of your patient. Please feel free to contact me if you have any questions. Procedures Date of Service Date of Service: 11/21/24
--- NOTE | 2024-11-21 13:22 | MHC.CM.PN ---
Per rounds, pt. not ready to DC, Urology to see him, CM to follow for DC needs.
--- NOTE | 2024-11-21 16:09 | HO.PM.IMPN ---
Subjective Subjective Date of Service: 11/21/24 Interval History: hematuria , afib rvr Review of Systems hematuria improving afib/hr improving no chest pain or sob. Physical Exam Exam: Exam: Appearance: Alert.? Oriented X3. cvs: rrr, [id number] . res: clear to auscultation ,no rhonchii or wheezing abd: no rebound or guarding ,nt, bs present. ext pulses present , no cyanosis . : hamturia clearing neuro: axo3 , nonfocal. Vital Signs: Vital Signs: Last Vital Signs Temp 97.8 F 11/21/24 15:39 Pulse 95 11/21/24 15:39 Resp 18 11/21/24 15:39 BP 115/71 11/21/24 15:39 Pulse Ox 98 11/21/24 15:39 O2 Del Method Room Air 11/21/24 15:39 O2 Flow Rate 2 11/20/24 14:38 BMI result Body Mass Index 28.5 Objective Data Active Medications Acetaminophen (Acetaminophen 325 Mg Tablet) 650 mg PO Q6H PRN PRN Reason: Pain, Mild 1-3,fever,headache Last Admin: 11/18/24 14:51 Dose: 650 mg Documented By: THEO Belladonna Alkaloids/Opium (Opium/Belladonna 60/16.2 Mg Supp.Rect) 1 supp NE BID PRN PRN Reason: bladder spasm Last Admin: 11/18/24 04:56 Dose: 1 supp Documented By: ALYSA Calcium Carbonate (Calcium Carbonate 750 Mg Tab.Chew) 750 mg PO Q4H PRN PRN Reason: Heartburn Ceftriaxone Sodium (Ceftriaxone Sodium 1 Gm Vial) 1 gm IVPUSH Q24H GREYSON Last Admin: 11/21/24 15:55 Dose: 1 gm Documented By: DINA Dextrose (Dextrose 50 % 25 Gm/50 Ml Syringe) 25 gm IVPUSH Q15M PRN; Protocol PRN Reason: per Hypoglycemia Standing Ord. Digoxin (Digoxin 0.125 Mg Tablet) 0.125 mg PO DAILY [facility]; Protocol Glucose (Glucose Gel 15 Gm Gel..Gram.) 15 gm PO Q15M PRN; Protocol PRN Reason: per Hypoglycemia Standing Ord. Hydromorphone HCl (Hydromorphone Hcl 0.5 Mg/0.5 Ml Syringe) 0.5 mg IVPUSH Q4H PRN; Protocol PRN Reason: Pain, Severe (Pain Scale 7-10) Last Admin: 11/21/24 14:53 Dose: 0.5 mg Documented By: DINA Lactated Ringer's (Lr) 1,000 mls @ 100 mls/hr IVCONT .Q10H [facility] Last Admin: 11/21/24 11:39 Dose: 100 mls/hr Documented By: DINA Insulin Human Lispro (Insulin Lispro 100 Unit/Ml 3 Ml Vial) 0 unit SUBCUT QIDACHS [facility]; Protocol Last Admin: 11/21/24 11:41 Dose: Not Given Documented By: DINA Non-Admin Reason: No Insulin Coverage Loratadine (Loratadine 10 Mg Tablet) 10 mg PO DAILY [facility] Last Admin: 11/21/24 09:14 Dose: 10 mg Documented By: DINA Magnesium Hydroxide (Milk Of Magnesia 30 Ml Oral.Susp) 30 ml PO DAILY PRN PRN Reason: Constipation Melatonin (Melatonin 3 Mg Tablet) 6 mg PO BEDTIME PRN PRN Reason: Insomnia Metoprolol Tartrate (Metoprolol Tartrate 25 Mg Tablet) 25 mg PO BID [facility]; Protocol Last Admin: 11/21/24 09:14 Dose: 25 mg Documented By: DINA Multivitamins/Vitamin C (Multivitamin Tablet) 1 tab PO Q48H [facility] Last Admin: 11/21/24 14:48 Dose: 1 tab Documented By: DINA Ondansetron HCl (Ondansetron Hcl 4 Mg/2 Ml Vial) 4 mg IVPUSH Q6H PRN PRN Reason: Nausea and Vomiting Last Admin: 11/18/24 14:27 Dose: 4 mg Documented By: THEO Sodium Chloride (0.9 % Sodium Chloride Flush 3 Ml Syringe) 3 ml IVFLUSH QSHIFT [facility] Last Admin: 11/21/24 15:56 Dose: 3 ml Documented By: DINA Labs 11/21/24 08:24 11/21/24 08:24 Labs: Laboratory Results - last 24 hr 11/20/24 11/20/24 11/20/24 16:31 16:47 20:35 MCV MCH MCHC RDW Plt Count MPV Absolute Nucleated RBC Nucleated RBC % (auto) Anion Gap Estim Creat Clear Calc Estimated GFR POC Glucose 197 H 202 H Random Glucose Lactic Acid 1.6 Calcium 11/21/24 11/21/24 11/21/24 07:10 08:24 11:07 MCV 87.2 MCH 30.0 MCHC 34.3 RDW 13.1 Plt Count 217 MPV 10.1 Absolute Nucleated RBC 0.000 Nucleated RBC % (auto) 0.0 Anion Gap 17 Estim Creat Clear Calc 79.0 Estimated GFR > 60 POC Glucose 132 H 139 H Random Glucose 150 H Lactic Acid Calcium 9.4 Assessment and Plan (1) Gross hematuria: Status: Acute Plan 79-year-old male with pertinent history of hypertension, [id number]-yuisuzmio type 2 diabetes mellitus, mood disorder who presents to the emergency department for evaluation of hematuria. New onset AFib with RVR: TSH normal Electrolyte seems fine hr controlled Monitor on tele Currently defer anticoagulation due to persistent hematuria. echo:Normal left ventricular size and systolic function. There is mildly increased left ventricular wall thickness. The visually estimated ejection fraction is between 60-65%. Normal right ventricular cavity size and systolic function. The left atrium is normal in size. The right atrium was not well visualized. plan: Continue IV pain medication, cramping medication-opium/belladonna supp,given IV metoprolol x2 2.5 mg,also digoxin loading 0.25 time x4, continue home metoprolol p.o. and digoxin 0.125 mcg qd. cardiology eval. Hematuria. h/h stable hematuria/small clots Imaging with hyperdense material in bladder plan: has continuous bladder irrigation. Urology eval appreciated: continue cbi, continue opium/belladonna supp for bladder carmps and zofran for nausea.added iv dilaudid also ? urinary infection: Tachycardia due to AFib Tachypnea in the setting of anxiety/pain Not septic at the present No fever,could not able to send ua -has cbi. Mild leukocytosis probably reactive Lactic acid normal, blood cultures sent Continue empiric antibiotics, follow cultures acute Hypokalemia: Repleted/resolved. [id number] diabetes mellitus: Initiating Accu-Cheks with sliding scale insulin every 6 hours while patient is NPO Hypertension: Resume metoprolol once no longer NPO DVT prophylaxis: SCDs Full code. Discussed with patient at bedside onging need hospital stay for evaluation of pain/hematuria, close monitoring of hemodynamics, CBI (as above), which is not possible in a lesser acute setting. Specialist consult pending Quality Stroke Does the patient have a stroke diagnosis?: No VTE Prior VTE?: No VTE Risk Level:: Medical - moderate - high VTE Device Contraindication: N/A - Device Ordered VTE Drug Contraindication: Treatment Not Indicated
[2024-11-21 16:36] LABS: Glucose, Whole Blood 123 mg/dL (60-115)
--- NOTE | 2024-11-21 17:14 | P.PNUR_ITS ---
Subjective Subjective Date of Service: 11/21/24 Interval history: Urine clear May DC Tolentino catheter tomorrow if stable Follow-up with urology as plan Physical Exam 2 Vital Signs: Vital Signs: Last Vital Signs Temp 97.8 F 11/21/24 15:39 Pulse 95 11/21/24 15:39 Resp 18 11/21/24 15:39 BP 115/71 11/21/24 15:39 Pulse Ox 98 11/21/24 15:39 O2 Del Method Room Air 11/21/24 15:39 O2 Flow Rate 2 11/20/24 14:38 BMI result Body Mass Index 28.5 Const: General: cooperative, healthy appearing, comfortable and no acute distress Orientation/consciousness: patient oriented x3 HEENT: Face and sinus: Yes normal facial exam Mouth: moist mucous membranes Neck: Neck: Yes normal visual inspection, Yes full ROM and Yes trachea midline Chest: Chest palpation & inspection: normal inspection of the chest Resp: Effort & Inspection: normal respiratory effort, able to speak in complete sentences and no respiratory distress GI: Inspection: Yes normal to inspection Back/Spine/Pelvis: Cervical Spine: normal cervical lordosis Thoracic/Lumbar Spine: thoracic and lumbar spine normal to inspection Skin: General skin exam: no rashes or lesions noted Neuro: General: patient oriented x3, tone normal and moves all extremities Extrem: General: Yes normal to inspection and Yes capillary refill normal Urology Results Labs 11/21/24 08:24 11/21/24 08:24 Labs: Laboratory Results - last 24 hr 11/20/24 11/20/24 11/21/24 16:47 20:35 07:10 WBC RBC Hgb Hct MCV MCH MCHC RDW Plt Count MPV Absolute Nucleated RBC Nucleated RBC % (auto) Sodium Potassium Chloride Carbon Dioxide Anion Gap BUN Creatinine Estim Creat Clear Calc Estimated GFR POC Glucose 202 H 132 H Random Glucose Lactic Acid 1.6 Calcium 11/21/24 11/21/24 11/21/24 08:24 11:07 16:32 WBC 10.3 RBC 5.64 Hgb 16.9 Hct 49.2 MCV 87.2 MCH 30.0 MCHC 34.3 RDW 13.1 Plt Count 217 MPV 10.1 Absolute Nucleated RBC 0.000 Nucleated RBC % (auto) 0.0 Sodium 142 Potassium 4.0 Chloride 103 Carbon Dioxide 26 Anion Gap 17 BUN 28 H Creatinine 0.91 Estim Creat Clear Calc 79.0 Estimated GFR > 60 POC Glucose 139 H 123 H Random Glucose 150 H Lactic Acid Calcium 9.4 Progress Note: A&P Assessment and plan (1) Gross hematuria: Status: Acute Plan Follow-up with urology as as planned in 2 months Time Spent With Patient Time: Total time managing care of this patient today ____ minutes. Progress Note: Quality Stroke Does the patient have a stroke diagnosis?: No
[2024-11-21 20:39] LABS: Glucose, Whole Blood 154 mg/dL (60-115)
[2024-11-22] VITALS (7 sets, daily range): BP systolic 118–143; BP diastolic 57–88; PULSE 80–120; RESP 16–19; TEMP 35.9–36.8; O2SAT 96–99
[2024-11-22 07:28] LABS: Glucose, Whole Blood 136 mg/dL (60-115)
[2024-11-22] MEDS: Lactated Ringers 1,000 ML 100 ML IVCONT (08:50)
--- NOTE | 2024-11-22 08:52 | PC.NURSE ---
Addendum entered by Paty aKpoor RN 11/22/24 10:57: Pt voided in urinal pink tinged urine. Bladder spasms have stopped per pt Original Note: CBI removed this morning per Dr Bergman. Pt tolerated well.
[2024-11-22 08:53] LABS: Hematocrit 46.0 % (42.0-52.0); Hemoglobin 16.4 g/dl (14.0-18.0); Mean Corpuscular HGB Conc 35.7 g/dl (31.0-36.0); Mean Corpuscular Hemoglobin 30.5 pg (27.0-33.0); Mean Corpuscular Volume 85.5 fL (80.0-98.0); NRBC Abs Auto 0.000 X10*3/uL (0.0-0.012); NRBC Pct Auto 0.0 /100WBC (0.0-0.2); Platelet Count 187 X10*3/uL (160-400); Red Blood Count 5.38 X10*6/uL (4.60-5.80); White Blood Count 8.1 X10*3/uL (4.8-10.8)
[2024-11-22 09:17] LABS: Anion Gap 12 (12-20); Blood Urea Nitrogen 19 mg/dL (9-16); Calcium 8.9 mg/dL (8.4-10.2); Carbon Dioxide 25 mmol/L (22-29); Chloride 106 mmol/L (96-108); Creatinine Clr Calc Pharmacy 92.2; Estimated Glomerular Filt Rate > 60; Potassium 3.7 mmol/L (3.3-5.1); Sodium 139 mmol/L (135-145)
--- NOTE | 2024-11-22 10:06 | P.PNUR_ITS ---
Subjective Subjective Date of Service: 11/22/24 Interval history: Blood-tinged urine output Recommend removal of Tolentino catheter voiding trial today Keep urology follow-up Physical Exam 2 Vital Signs: Vital Signs: Last Vital Signs Temp 98.2 F 11/22/24 07:12 Pulse 100 11/22/24 07:12 Resp 18 11/22/24 07:12 BP 143/86 H 11/22/24 07:12 Pulse Ox 99 11/22/24 07:12 O2 Del Method Room Air 11/22/24 07:12 O2 Flow Rate 2 11/20/24 14:38 BMI result Body Mass Index 28.5 Const: General: cooperative, healthy appearing, comfortable and no acute distress Orientation/consciousness: patient oriented x3 HEENT: Face and sinus: Yes normal facial exam Mouth: moist mucous membranes Neck: Neck: Yes normal visual inspection, Yes full ROM and Yes trachea midline Chest: Chest palpation & inspection: normal inspection of the chest Resp: Effort & Inspection: normal respiratory effort, able to speak in complete sentences and no respiratory distress GI: Inspection: Yes normal to inspection Back/Spine/Pelvis: Cervical Spine: normal cervical lordosis Thoracic/Lumbar Spine: thoracic and lumbar spine normal to inspection Skin: General skin exam: no rashes or lesions noted Neuro: General: patient oriented x3, tone normal and moves all extremities Extrem: General: Yes normal to inspection and Yes capillary refill normal Urology Results Labs 11/22/24 08:32 11/22/24 08:32 Labs: Laboratory Results - last 24 hr 11/21/24 11/21/24 11/21/24 11:07 16:32 20:30 WBC RBC Hgb Hct MCV MCH MCHC RDW Plt Count MPV Absolute Nucleated RBC Nucleated RBC % (auto) Sodium Potassium Chloride Carbon Dioxide Anion Gap BUN Creatinine Estim Creat Clear Calc Estimated GFR POC Glucose 139 H 123 H 154 H Random Glucose Calcium 11/22/24 11/22/24 07:24 08:32 WBC 8.1 RBC 5.38 Hgb 16.4 Hct 46.0 MCV 85.5 MCH 30.5 MCHC 35.7 RDW 12.9 Plt Count 187 MPV 10.0 Absolute Nucleated RBC 0.000 Nucleated RBC % (auto) 0.0 Sodium 139 Potassium 3.7 Chloride 106 Carbon Dioxide 25 Anion Gap 12 BUN 19 H Creatinine 0.78 Estim Creat Clear Calc 92.2 Estimated GFR > 60 POC Glucose 136 H Random Glucose 158 H Calcium 8.9 Progress Note: A&P Assessment and plan (1) Gross hematuria: Status: Acute Plan No identifiable cause of hematuria Remove Tolentino catheter for voiding trial Time Spent With Patient Time: Total time managing care of this patient today ____ minutes. Progress Note: Quality Stroke Does the patient have a stroke diagnosis?: No
[2024-11-22 11:39] LABS: Glucose, Whole Blood 176 mg/dL (60-115)
--- NOTE | 2024-11-22 11:42 | PM.DS ---
DS: Providers Provider Date of Service: 11/23/24 Date of admission: 11/17/24 00:29 Date of discharge: 11/23/24 Primary care physician: Pepe Finch MD Consults: 11/17/24 00:28 Consult to Urology Routine Consulting Provider: [facility] Reason for consultation: hematuria 11/20/24 15:05 Consult to Cardiology Routine Consulting Provider: [facility] Reason for consultation: new afib./chest tightness Has provider been notified: No 11/20/24 15:21 Consult to Cardiology Routine Consulting Provider: [facility] Reason for consultation: afib new ,chest tightness Has provider been notified: No Attending physician on discharge: Atilio Brooks Discharging clinician: Irina Almeida DS: Diagnosis Discharge Diagnosis (1) Gross hematuria: Status: Acute DS: Summary Hospital Course Hospital Course: From H&P on the day of admission This has a 79-year-old male with pertinent history of hypertension, zra-ndyhwnm-bvflncgrn type 2 diabetes mellitus, mood disorder who presents to the emergency department for evaluation of hematuria. Patient states he 1st noticed bright red blood in his urine on the morning of presentation. It has been painless and constant. No abdominal discomfort. Denies fever, chills, nausea, vomiting. Does have a history of nephrolithiasis and bladder stones. Also reports blood clots in urine. No chest pain, palpitations, shortness of breath, changes in bowel habits. In the emergency department, patient was initiated on CBI. New onset AFib with RVR: TSH normal. Received IV metoprolol and loaded with digoxin, started on oral digoxin. Metoprolol was titrated and he will be discharged on 150 mg of Toprol-XL. Heart rate improving. Underwent echocardiogram: Normal left ventricular size and systolic function. There is mildly increased left ventricular wall thickness. The visually estimated ejection fraction is between 60-65%. Normal right ventricular cavity size and systolic function. The left atrium is normal in size. The right atrium was not well visualized. Was seen by cardiology during hospitalization. Currently defer anticoagulation due to hematuria. Plan for outpatient holter monitor. Gross Hematuria. Imaging with hyperdense material in bladder hemorrhage vs mass. heterogenous enlarged prostate. Status post CBI with improvement of hematuria, seen by Urology who recommended to remove trujillo now that hematuria has improved. H/H remained in the normal range despite hematuria. Trujillo was removed and patient is voiding without difficulty, urine this morning was clear with no blood. Outpatient follow-up with urology recommended to determine need for cystoscopy. acute Hypokalemia: Repleted/resolved. Ckp-hutalse-vttdnpprw diabetes mellitus: covered with sliding scale, resume baseline meds upon discharge Time Attestation Discharge Coordination Time (in mins): 35 Quality: Safe Use of Opioids Does Pt have an Active Cancer Diagnosis on the Problem List?: No Quality: Stroke Does the patient have a stroke diagnosis?: No Physical Exam Vital Signs: Vital Signs: Last Vital Signs Temp 98.2 F 11/22/24 07:12 Pulse 100 11/22/24 07:12 Resp 18 11/22/24 07:12 BP 143/86 H 11/22/24 07:12 Pulse Ox 99 11/22/24 07:12 O2 Del Method Room Air 11/22/24 07:12 O2 Flow Rate 2 11/20/24 14:38 BMI result Body Mass Index 28.5 Const: General: cooperative, comfortable, no acute distress, alert and awake Nutritional Appearance: average body habitus Orientation/consciousness: patient oriented x3 Resp: Effort & Inspection: normal respiratory effort, able to speak in complete sentences, no respiratory distress and no use of accessory muscles Cardio: Rate: regular rate GI: Palpation (GI): Soft to palpation Neuro: General: patient oriented x3, moves all extremities and CN's II-XI intact bilaterally Extrem: General: No pedal edema DS: Data Data Completed and Pending Labs on day of discharge: Laboratory Results - last 24 hr 11/21/24 11/21/24 11/22/24 16:32 20:30 07:24 WBC RBC Hgb Hct MCV MCH MCHC RDW Plt Count MPV Absolute Nucleated RBC Nucleated RBC % (auto) Sodium Potassium Chloride Carbon Dioxide Anion Gap BUN Creatinine Estim Creat Clear Calc Estimated GFR POC Glucose 123 H 154 H 136 H Random Glucose Calcium 11/22/24 11/22/24 08:32 11:30 WBC 8.1 RBC 5.38 Hgb 16.4 Hct 46.0 MCV 85.5 MCH 30.5 MCHC 35.7 RDW 12.9 Plt Count 187 MPV 10.0 Absolute Nucleated RBC 0.000 Nucleated RBC % (auto) 0.0 Sodium 139 Potassium 3.7 Chloride 106 Carbon Dioxide 25 Anion Gap 12 BUN 19 H Creatinine 0.78 Estim Creat Clear Calc 92.2 Estimated GFR > 60 POC Glucose 176 H Random Glucose 158 H Calcium 8.9 Preliminary micro results at discharge 11/20/24 16:55 Blood Culture - Preliminary Blood - Venous No growth after 24 hours. 11/20/24 16:47 Blood Culture - Preliminary Blood - Venous No growth after 24 hours. Discharge Plan Discharge Anticipated Discharge Date/Time: 11/23/24 10:41 Patient Disposition: Home, Self-Care Discharge Diagnosis: atrial fibrillation gross hematuria hypokalemia - resolved Referrals: Simon Bergman MD [Physician, Urology] - 1 Week Referral Note: hematuria Bogdan Worthy MD [Physician, Cardiology] - 1 Week Referral Note: atrial fibrillation Pepe Finch MD [Primary Care Provider, Internal Medicine] - 1 Week Discharge Medications: New digoxin 125 mcg (0.125 mg) Tablet 0.125 mg PO DAILY 90 Days Qty: 90 0RF Protocol: Hold for HR <: HOLD for HR < : 60 metoprolol succinate [Toprol XL] 100 mg tablet extended release 24 hr 100 mg PO DAILY 90 Days Qty: 90 0RF Continued magnesium 200 mg tablet 200 mg PO Q48H metformin 1,000 mg tablet 1,000 mg PO DAILY cholecalciferol (vitamin D3) 50 mcg (2,000 unit) capsule 50 mcg PO DAILY vitamin B complex Capsule 1 cap PO Q48H Discontinued metoprolol tartrate 25 mg tablet 25 mg PO BID Qty: 180 1RF Discharge Orders: Discharge Order (Routine); Ordered 11/23/24 Ordered By: Irina Almeida Activity on Discharge: As tolerated Stand Alone Forms: Patient Portal Discharge page Print Language: Wolof Care Plan Goals: See below Health Concerns: New onset atrial fibrillation with rapid ventricular response Gross hematuria Possible bladder mass Plan of Treatment: Hematuria has improved, hemoglobin and hematocrit have remained stable. will need outpatient follow-up with Urology for possible cystoscopy to evaluate for bladder mass or other causes of hematuria, call to schedule follow-up appointment Take digoxin as prescribed to help control heart rate and take Toprol XL 150 mg daily - will need outpatient follow-up with Cardiology to monitor atrial fibrillation/possible holter monitor/eval need to start blood thinner you will need blood thinner in the future, but due to recent hematuria will defer for now - follow up with PCP and cardiology Assessment: See discharge summary
--- NOTE | 2024-11-22 12:13 | PC.NURSE ---
Addendum entered by Paty Kapoor RN 11/22/24 13:19: Pt still sustaining HR 120s while sitting up in the recliner. Pt remains asymptomatic Original Note: Pt HR up to 130s when ambulated with PT, pt asymptomatic at this time. Provider notified. 500ml bolus ordered for pt
--- NOTE | 2024-11-22 13:51 | P.PNIM_ITS ---
Subjective Subjective Date of Service: 11/22/24 Interval History: seen and examined this morning follow up for hematuria, atrial fibrillation trujillo removed this am per urology rec HR initially controlled but then became uncontrolled after PT evaluation; pt asymptomatic Review of Systems Review of Systems: Yes all other systems are reviewed and are negative Constitutional Constitutional: Denies chills and Denies fever(s) ENT Ears, Nose, Mouth, and Throat: Denies dizziness Cardiovascular Cardiovascular: Denies chest pain, Denies palpitations and Denies dyspnea Respiratory Respiratory: Denies cough and Denies dyspnea Gastrointestinal Gastrointestinal: Denies abdominal pain Neurologic Neurologic: Denies dizziness Endocrine Endocrine: Denies palpitations Physical Exam 2 Vital Signs: Vital Signs: Last Vital Signs Temp 98.0 F 11/22/24 11:43 Pulse 120 H 11/22/24 13:13 Resp 18 11/22/24 11:43 BP 118/57 L 11/22/24 11:43 Pulse Ox 97 11/22/24 11:43 O2 Del Method Room Air 11/22/24 11:43 O2 Flow Rate 2 11/20/24 14:38 BMI result Body Mass Index 28.5 Const: General: cooperative, comfortable, alert and awake Nutritional Appearance: average body habitus Orientation/consciousness: patient oriented x3 Resp: Effort & Inspection: normal respiratory effort, able to speak in complete sentences, no respiratory distress and no use of accessory muscles Cardio: Rate: tachycardic GI: Inspection: No distended Palpation (GI): Soft to palpation : Other: trujillo out this am Neuro: General: patient oriented x3, moves all extremities and CN's II-XI intact bilaterally Objective Data Active Medications Acetaminophen (Acetaminophen 325 Mg Tablet) 650 mg PO Q6H PRN PRN Reason: Pain, Mild 1-3,fever,headache Last Admin: 11/18/24 14:51 Dose: 650 mg Documented By: THEO Calcium Carbonate (Calcium Carbonate 750 Mg Tab.Chew) 750 mg PO Q4H PRN PRN Reason: Heartburn Ceftriaxone Sodium (Ceftriaxone Sodium 1 Gm Vial) 1 gm IVPUSH Q24H [facility] Last Admin: 11/21/24 15:55 Dose: 1 gm Documented By: DINA Dextrose (Dextrose 50 % 25 Gm/50 Ml Syringe) 25 gm IVPUSH Q15M PRN; Protocol PRN Reason: per Hypoglycemia Standing Ord. Digoxin (Digoxin 0.125 Mg Tablet) 0.125 mg PO DAILY [facility]; Protocol Last Admin: 11/22/24 07:22 Dose: 0.125 mg Documented By: DINA Glucose (Glucose Gel 15 Gm Gel..Gram.) 15 gm PO Q15M PRN; Protocol PRN Reason: per Hypoglycemia Standing Ord. Hydromorphone HCl (Hydromorphone Hcl 0.5 Mg/0.5 Ml Syringe) 0.5 mg IVPUSH Q4H PRN; Protocol PRN Reason: Pain, Severe (Pain Scale 7-10) Last Admin: 11/22/24 04:07 Dose: 0.5 mg Documented By: GRETEL Insulin Human Lispro (Insulin Lispro 100 Unit/Ml 3 Ml Vial) 0 unit SUBCUT QIDACHS [facility]; Protocol Last Admin: 11/22/24 11:58 Dose: 2 unit Documented By: DINA Loratadine (Loratadine 10 Mg Tablet) 10 mg PO DAILY [facility] Last Admin: 11/22/24 07:22 Dose: 10 mg Documented By: DINA Magnesium Hydroxide (Milk Of Magnesia 30 Ml Oral.Susp) 30 ml PO DAILY PRN PRN Reason: Constipation Melatonin (Melatonin 3 Mg Tablet) 6 mg PO BEDTIME PRN PRN Reason: Insomnia Metoprolol Tartrate (Metoprolol Tartrate 25 Mg Tablet) 25 mg PO BID [facility]; Protocol Last Admin: 11/22/24 07:22 Dose: 25 mg Documented By: DINA Multivitamins/Vitamin C (Multivitamin Tablet) 1 tab PO Q48H [facility] Last Admin: 11/21/24 14:48 Dose: 1 tab Documented By: DINA Ondansetron HCl (Ondansetron Hcl 4 Mg/2 Ml Vial) 4 mg IVPUSH Q6H PRN PRN Reason: Nausea and Vomiting Last Admin: 11/18/24 14:27 Dose: 4 mg Documented By: THEO Sodium Chloride (0.9 % Sodium Chloride Flush 3 Ml Syringe) 3 ml IVFLUSH QSHIFT [facility] Last Admin: 11/22/24 09:26 Dose: Not Given Documented By: DINA Non-Admin Reason: IV Running Labs 11/22/24 08:32 11/22/24 08:32 Labs: Laboratory Results - last 24 hr 11/21/24 11/21/24 11/22/24 16:32 20:30 07:24 MCV MCH MCHC RDW Plt Count MPV Absolute Nucleated RBC Nucleated RBC % (auto) Anion Gap Estim Creat Clear Calc Estimated GFR POC Glucose 123 H 154 H 136 H Random Glucose Calcium 11/22/24 11/22/24 08:32 11:30 MCV 85.5 MCH 30.5 MCHC 35.7 RDW 12.9 Plt Count 187 MPV 10.0 Absolute Nucleated RBC 0.000 Nucleated RBC % (auto) 0.0 Anion Gap 12 Estim Creat Clear Calc 92.2 Estimated GFR > 60 POC Glucose 176 H Random Glucose 158 H Calcium 8.9 Microbiology Microbiology Results: Microbiology 11/20/24 16:55 Blood Culture - Preliminary Blood - Venous No growth after 24 hours. 11/20/24 16:47 Blood Culture - Preliminary Blood - Venous No growth after 24 hours. Assessment and Plan (1) Gross hematuria: Status: Acute (2) PAF (paroxysmal atrial fibrillation): Status: Acute Plan This is a 79-year-old male with pertinent history of hypertension, [id number] type 2 diabetes mellitus, mood disorder who presents to the emergency department for evaluation of hematuria. New onset AFib with RVR: TSH normal continued on baseline metoprolol, loaded with digoxin HR was improved, now sustaining 120s. - will give extra dose of lopressor and increase standing dose to 50 bid Currently defer anticoagulation due to persistent hematuria. echo: Normal left ventricular size and systolic function. There is mildly increased left ventricular wall thickness. The visually estimated ejection fraction is between 60-65%. Normal right ventricular cavity size and systolic function. The left atrium is normal in size. The right atrium was not well visualized. cardiology following Hematuria. Imaging with hyperdense material in bladder, possible bladder mass vs hemorrhage hematuria improving s/p CBI, trujillo removed 11/22 per urology rec H/H has remained normal will need outpatient urology follow up for cystoscopy ?UTI Tachycardia due to AFib, one episode of tachypnea due to anxiety/pain. no sepsis urine culture did not reflex Mild leukocytosis probably reactive Lactic acid normal, blood cultures negative to date Continue empiric antibiotics acute Hypokalemia: resolved with replacement Dis-loqiybc-dtzlzzkhl diabetes mellitus: hold metformin SSI, POCs, ADA diet Hypertension: BP stable continue metoprolol DVT prophylaxis: SCDs due to hematuria Full code. onging need hospital stay for evaluation of pain/hematuria, close monitoring of hemodynamics, which is not possible in a lesser acute setting. Specialist consult pending Quality Stroke Does the patient have a stroke diagnosis?: No VTE Prior VTE?: No VTE Risk Level:: Medical - moderate - high VTE Device Contraindication: N/A - Device Ordered VTE Drug Contraindication: Treatment Not Indicated
--- NOTE | 2024-11-22 15:59 | PM.PNCARD ---
Subjective Subjective Date of Service: 11/22/24 Interval history: Seen examined at bedside. Hematuria is improving. Continues to have AFib with RVR especially when he is ambulating. He was given some IV fluids earlier today. Physical Exam Vital Signs: Last Vital Signs Temp 97.9 F 11/22/24 15:08 Pulse 105 H 11/22/24 15:08 Resp 18 11/22/24 15:08 BP 134/71 11/22/24 15:08 Pulse Ox 96 11/22/24 15:08 O2 Del Method Room Air 11/22/24 15:08 O2 Flow Rate 2 11/20/24 14:38 BMI result Body Mass Index 28.5 GENERAL APPEARANCE: in no acute distress, pleasant. NECK: no carotid bruit, no jugular venous distention. SKIN: no suspicious lesions, warm and dry. HEART: no murmurs, irregular rate and rhythm. LUNGS: clear to auscultation bilaterally. ABDOMEN: soft, nontender. EXTREMITIES: no edema. PERIPHERAL PULSES: equal. NEUROLOGIC: No gross deficits, AAO X 3 Objective Labs and Meds 11/22/24 08:32 11/22/24 08:32 Lab results: Laboratory Results - last 24 hr 11/21/24 11/21/24 11/22/24 16:32 20:30 07:24 WBC RBC Hgb Hct MCV MCH MCHC RDW Plt Count MPV Absolute Nucleated RBC Nucleated RBC % (auto) Sodium Potassium Chloride Carbon Dioxide Anion Gap BUN Creatinine Estim Creat Clear Calc Estimated GFR POC Glucose 123 H 154 H 136 H Random Glucose Calcium 11/22/24 11/22/24 08:32 11:30 WBC 8.1 RBC 5.38 Hgb 16.4 Hct 46.0 MCV 85.5 MCH 30.5 MCHC 35.7 RDW 12.9 Plt Count 187 MPV 10.0 Absolute Nucleated RBC 0.000 Nucleated RBC % (auto) 0.0 Sodium 139 Potassium 3.7 Chloride 106 Carbon Dioxide 25 Anion Gap 12 BUN 19 H Creatinine 0.78 Estim Creat Clear Calc 92.2 Estimated GFR > 60 POC Glucose 176 H Random Glucose 158 H Calcium 8.9 Progress Note: A&P Assessment and plan (1) PAF (paroxysmal atrial fibrillation): Status: Acute Plan Paroxysmal atrial fibrillation in 79 year gentleman with bladder calculus and hematuria. Hematuria is improving at this point. He can not get anticoagulation and is currently being treated with rate control strategy. Titrate metoprolol tartrate to 50 mg twice a day and continue digoxin 125 mcg daily. If he does not improve with metoprolol then can add diltiazem CD 120 mg daily. Target heart rate less than 120 with ambulation. Clinically not in heart failure and completely asymptomatic. Thank you for allowing me to participate in the care of your patient. Please feel free to contact me if you have any questions. Time Spent With Patient Time: Total time managing care of this patient today ____ minutes. Progress Note: Quality Stroke Does the patient have a stroke diagnosis?: No Procedures Date of Service Date of Service: 11/22/24
[2024-11-22 16:18] LABS: Glucose, Whole Blood 151 mg/dL (60-115)
[2024-11-22 21:18] LABS: Glucose, Whole Blood 158 mg/dL (60-115)
[2024-11-22] MEDS: 0.9 % Sodium Chloride Flush 3 ML SYRINGE IVFLUSH (22:17)
[2024-11-23] VITALS: BP 132/77; PULSE 89; RESP 16; TEMP 36.9; O2SAT 97
[2024-11-23 03:52] VITALS: BP 135/89; PULSE 90; RESP 16; TEMP 36.6; O2SAT 96
[2024-11-23 07:17] LABS: Glucose, Whole Blood 119 mg/dL (60-115)
[2024-11-23 07:18] VITALS: BP 114/76; PULSE 99; RESP 20; TEMP 36.4; O2SAT 97
[2024-11-23] MEDS: 0.9 % Sodium Chloride Flush 3 ML SYRINGE IVFLUSH (08:19)
--- NOTE | 2024-11-23 10:18 | PM.PNCARD ---
Subjective Subjective Date of Service: 11/23/24 Interval history: Seen and examined at bedside. Heart rates better controlled but with ambulation still getting tachycardic. Physical Exam Vital Signs: Last Vital Signs Temp 97.6 F 11/23/24 07:18 Pulse 99 11/23/24 07:18 Resp 20 11/23/24 07:18 BP 114/76 11/23/24 07:18 Pulse Ox 97 11/23/24 07:18 O2 Del Method Room Air 11/23/24 07:18 O2 Flow Rate 2 11/20/24 14:38 BMI result Body Mass Index 28.5 GENERAL APPEARANCE: in no acute distress, pleasant. NECK: no carotid bruit, no jugular venous distention. SKIN: no suspicious lesions, warm and dry. HEART: no murmurs, irregular rate and rhythm. LUNGS: clear to auscultation bilaterally. ABDOMEN: soft, nontender. EXTREMITIES: no edema. PERIPHERAL PULSES: equal. NEUROLOGIC: No gross deficits, AAO X 3 Objective Labs and Meds 11/22/24 08:32 11/22/24 08:32 Lab results: Laboratory Results - last 24 hr 11/22/24 11/22/24 11/22/24 11:30 16:09 21:14 POC Glucose 176 H 151 H 158 H 11/23/24 07:11 POC Glucose 119 H Progress Note: A&P Assessment and plan (1) PAF (paroxysmal atrial fibrillation): Status: Acute Plan Paroxysmal atrial fibrillation in 79 year gentleman with bladder calculus and hematuria. Hematuria is improving at this point. He can not get anticoagulation and is currently being treated with rate control strategy. Continue digoxin 125 mcg daily. Change metoprolol to Toprol-XL 150 mg daily. Ambulate the hallways and if heart rates 120 or below then can be discharged back home. I will arrange a monitor for him. Completely asymptomatic from AFib point of view currently. No symptoms/signs of heart failure. Thank you for allowing me to participate in the care of your patient. Please feel free to contact me if you have any questions. Time Spent With Patient Time: Total time managing care of this patient today ____ minutes. Progress Note: Quality Stroke Does the patient have a stroke diagnosis?: No Procedures Date of Service Date of Service: 11/23/24
[2024-11-23 11:07] VITALS: BP 126/78; PULSE 94; RESP 20; TEMP 36.5; O2SAT 96
[2024-11-23 11:08] LABS: Glucose, Whole Blood 155 mg/dL (60-115)
== END 2024-11-23 12:48 | disposition home or self-care (01) | DRG 696 ==
LOC: HO.ED 20:31 → HO.EDOVER 11-17 01:01 → HO.IMC 11-17 16:13 → HO.S3 11-19 10:00 → HO.IMC 11-20 14:43
PROVIDERS: Internal Medicine; Admitting Provider Student in an Organized Health Care Education/Training Program; Emergency Provider Internal Medicine; PCP Internal Medicine; Visit Provider Physician Assistant Medical
DX: R31.0 Gross hematuria (principal); E87.6 Hypokalemia; N40.0 Benign prostatic hyperplasia without lower urinary tract symptoms; N32.9 Bladder disorder, unspecified; E11.9 Type 2 diabetes mellitus without complications; I10 Essential (primary) hypertension; Z87.442 Personal history of urinary calculi; I48.0 Paroxysmal atrial fibrillation; N32.89 Other specified disorders of bladder; F17.210 Nicotine dependence, cigarettes, uncomplicated; Z71.6 Tobacco abuse counseling; Z79.84 Long term (current) use of oral hypoglycemic drugs; Z79.899 Other long term (current) drug therapy
CPT/HCPCS: 36415; 71045; 74176; 80048; 80053; 81001; 82947; 83605; 84443; 84484; 85014; 85018; 85025; 85027; 87040; 93005; 93306; 97161; 99285; J0616; J0696; J1160; J1171; J2270; J2405; J3475; J7120; Q9957

== ENCOUNTER → 2024-11-16 21:10 | Outpatient (BNV) | payer MEDICARE, SELFPAY | PROVIDERS: Admitting Provider Student in an Organized Health Care Education/Training Program; Emergency Provider Internal Medicine; PCP Internal Medicine; Visit Provider Radiology Diagnostic Radiology | DX: N40.1 Benign prostatic hyperplasia with lower urinary tract symptoms (principal) | CPT/HCPCS: 74176 ==

== ENCOUNTER 2024-11-17 00:29 | Outpatient (BNV) | payer MEDICARE, SELFPAY | END 2024-11-20 14:49 | PROVIDERS: Admitting Provider Student in an Organized Health Care Education/Training Program; Emergency Provider Internal Medicine; PCP Internal Medicine; Visit Provider Internal Medicine Cardiovascular Disease | DX: I48.91 Unspecified atrial fibrillation (principal); I45.10 Unspecified right bundle-branch block | CPT/HCPCS: 93010 ==

== ENCOUNTER 2024-11-17 00:29 | Outpatient (BNV) | payer MEDICARE, SELFPAY | END 2024-11-20 15:24 | PROVIDERS: Admitting Provider Student in an Organized Health Care Education/Training Program; Emergency Provider Internal Medicine; PCP Internal Medicine; Visit Provider Radiology Diagnostic Radiology | DX: R07.9 Chest pain, unspecified (principal) | CPT/HCPCS: 71045 ==

== ENCOUNTER 2024-11-17 00:29 | Outpatient (BNV) | payer MEDICARE, SELFPAY | END 2024-11-21 07:00 | PROVIDERS: Admitting Provider Student in an Organized Health Care Education/Training Program; Emergency Provider Internal Medicine; PCP Internal Medicine; Visit Provider Internal Medicine Cardiovascular Disease | DX: I48.91 Unspecified atrial fibrillation (principal); I35.8 Other nonrheumatic aortic valve disorders | CPT/HCPCS: 93306 ==

== ENCOUNTER → 2024-11-17 00:29 | Outpatient (BNV) | payer MEDICARE, SELFPAY | PROVIDERS: Admitting Provider Student in an Organized Health Care Education/Training Program; Emergency Provider Internal Medicine; PCP Internal Medicine; Visit Provider Student in an Organized Health Care Education/Training Program | DX: R31.0 Gross hematuria (principal) | CPT/HCPCS: 99231; 99232 ==

== ENCOUNTER → 2024-11-17 00:29 | Outpatient (BNV) | payer MEDICARE, SELFPAY | PROVIDERS: Admitting Provider Student in an Organized Health Care Education/Training Program; Emergency Provider Internal Medicine; PCP Internal Medicine; Visit Provider Urology | DX: R31.0 Gross hematuria (principal); N32.89 Other specified disorders of bladder; R39.89 Other symptoms and signs involving the genitourinary system | CPT/HCPCS: 51702; 99222 ==

== ENCOUNTER → 2024-11-17 00:29 | Outpatient (BNV) | payer MEDICARE, SELFPAY | PROVIDERS: Admitting Provider Student in an Organized Health Care Education/Training Program; Emergency Provider Internal Medicine; PCP Internal Medicine; Visit Provider Internal Medicine Cardiovascular Disease | DX: I48.0 Paroxysmal atrial fibrillation (principal) | CPT/HCPCS: 99223; 99233 ==

== ENCOUNTER 2024-12-05 10:23 | Outpatient (AMB) | payer MEDICARE, SELFPAY ==
--- NOTE | 2024-12-05 10:24 | MHC.PC.OV ---
Vital Signs 12/05/24 10:31 Weight 198 lb 2 oz BP 107/61 Blood Pressure Location Rt femoral Position Sitting Respiration 16 Pulse 51 Pulse Source Pulse Oximeter Temp 97.3 F Temp Source Temporal Artery Scan Pulse Oximetry (%) 97 Oxygen Delivery Method Room Air Intake Visit Reasons: 6 month f/u Intake Note: Visit Reason: TCM Intake Note: Patient is here for hospital discharge follow up. [facility] [place] [facility] Director Required: No Production Supply Equipment Tender: Not Required per policy Accompanied by: Self / Same As Patient Allergies adhesive tape Adverse Reaction (Verified 12/05/24 12:16) blisters Medication List - Last Reconciled 12/05/24 by Bianca Stroud PA-C cholecalciferol (vitamin D3) 50 mcg PO DAILY ciprofloxacin HCl 500 mg PO BID 3 days magnesium 200 mg PO Q48H metoprolol succinate ER (Toprol XL) 100 mg PO DAILY 90 days vitamin B complex 1 cap PO Q48H Tobacco use date assessed: 11/09/24 Fall risk assessment: No Falls in past year Last assessed Fall Risk: 11/09/24 Dental Screening Dental Screen Date: 11/09/24 Did you have a dental visit in the last 12 months?: Yes Did you have a dental problem in the last 6 months where you did not have access to dental care?: No Was dental information given to patient?: Patient has dentist HPI HPI Comments History of Present Illness Details Patient presents to the office for a TCM visit. Date of admission: 11/17/2024 Date of discharge: 11/23/2024 This is a Follow-up from admission at [facility] HPI/hospital course/discharge summary: The patient is a 79-year-old male presenting with a follow-up after hospital discharge for atrial fibrillation and gross hematuria. The patient was admitted to the hospital on November 17, 2024, and discharged on November 23, 2024, with a diagnosis of gross hematuria. He reported noticing blood in his urine on the morning of admission, which was painless and constant, without any abdominal discomfort, fever, nausea, vomiting, or chills. The patient has a history of nephrolithiasis and bladder stones, and during hospitalization, he experienced blood clots in his urine. During the hospital stay, the patient developed new-onset atrial fibrillation with rapid ventricular response. He was treated with intravenous metoprolol and digoxin, and upon stabilization, was discharged on oral digoxin and metoprolol succinate. An echocardiogram showed normal left ventricular size and systolic function, with mild increased left ventricular wall thickening attributed to hypertension. The patient also experienced acute hypokalemia during hospitalization, which resolved before discharge. His type 2 diabetes mellitus was managed with a sliding scale insulin regimen, and he resumed baseline medications upon discharge. The patient reports living alone and is attempting to resume normal activities, including exercise such as walking. He has a support system consisting of friends and family, including two sisters and a brother. Social history - Living situation: Lives alone - Exercise: Attempting to resume normal activities, including walking - Support system: Has friends and family, including two sisters and a brother Discharged to/Current Location: Home Lives with: Self Diagnosis: Gross hematuria; atrial fibrillation; he hypokalemia resolved Procedures performed: Patient had CT scan of abdomen pelvis with IV contrast and a CBC I New medications: Patient was started on digoxin 125 mcg daily although reports he is no longer taking this will discuss this with the cardiology although I explained to him he should be taking this. He was also started on metoprolol succinate 100 mg extended release daily. He reports he is still taking this medication. Discontinued medications: Patient was discontinued metoprolol tartrate 25 mg tablet. Change medications/dosing: No changes in medications or dosing Pending labs: No pending labs Pending diagnostic test: No pending diagnostic test Any Follow-up Labs required? No follow-up labs required Any Follow-up Diagnostic test required? No follow-up diagnostic test required at this time although patient may need cystoscopy by urologist How are you feeling? not 100% yet but overall improving slowly Are you in any pain or discomfort? Mild discomfort in urinary situation Do you have any questions about your condition or discharge instructions? No Were you able to get your medications filled? yes Do you have any questions about your medications? no Any referrals required? yes Cardiology and Urology Were you able to schedule your follow-up appointment? has follow up in Nov with cardiology will send message for sooner appointment If home health was ordered, have they contact you? Patient not interested Any outpatient services, if so, are you scheduled? Patient not interested Are there any additional resources like transportation you might need during her recovery? - VNA? Patient not interested - [employer]? Patient not interested - Meals on wheels? Patient not interested Educational need/resources: What support system do you have? Lots of family and friend's. Girlfriend, two sister's and brother's. [facility] Medical History (Updated 12/05/24 @ 12:21 by Bianca Stroud PA-C) UTI (urinary tract infection) Hypokalemia Hospital discharge follow-up Bladder calculus Vitamin D deficiency Type 2 diabetes mellitus with hemoglobin A1c goal of less than 7.0% Insomnia Heart murmur PSA elevation Encounter for colorectal cancer screening using Cologuard test (~08/31/22) Type 2 diabetes mellitus Essential tremor Tubular adenoma BPH (benign prostatic hyperplasia) Ureteral stone History of rib fracture Lumbar herniated disc Fifi-Schlatter's disease Mild hypercholesterolemia Hypertension Surgical History History of colonoscopy (~04/20/16) History of prostate surgery Family History Father No problems noted. Mother No problems noted. Social History Household Members: None Housing: Other Housing Other:: mobile home Do you presently have visiting nurse or other home services: No Alcohol intake: current Alcohol intake frequency: does not drink Patient Tobacco Use Status: Current everyday Tobacco user Tobacco use type: Cigarette Cigarette Packs Per Day: 0.5 Cigarettes Per Day: 10.0 e-Cigarette/Vaping Use: Never Used Second Hand Smoke Exposure: No Substance Use Type: Marijuana service: No Current occupational status: retired Cognitive needs: No Hearing needs: No Vision needs: No Questionnaire PHQ-9 Over the last 2 weeks, how often have you been bothered by any of the following problems? 1. Little interest or pleasure in doing things: not at all 2. Feeling down, depressed, or hopeless: not at all 3. Trouble falling or staying asleep, or sleeping too much: not at all 4. Feeling tired or having little energy: not at all 5. Poor appetite or overeating: not at all 6. Feeling bad about yourself - or that you are a failure or have let yourself or your family down: not at all 7. Trouble concentrating on things, such as reading the newspaper or watching television: not at all 8. Moving or speaking so slowly that other people could have noticed. Or the opposite - being so fidgety or restless that you have been moving around a lot more than usual: not at all 9. Thoughts that you would be better off or of hurting yourself in some way: not at all Total score: 0 Depression Screening Interpretation: Negative Depression Screening Done: Yes 14392 - PHQ-9 Billing: Yes Source: Developed by Drs. Serg Cardoso, Cat Bautista, Hema Butt and colleagues, with an educational cecy from [employer]. Thrive Questionnaire Date Thrive assessed: 11/17/24 I am a: Patient What is your living situation today?: I have a steady place to live Within the past 12 months, did the food you bought not last and you didn't have the money to get more?: Never true Within the past 12 months, did you worry whether your food would run out before you got money to buy more?: Never true Do you have trouble paying for medicines?: No Do you have trouble getting transportation to medical appointments?: No Do you have trouble paying your heating and electricity bill?: No Do you have trouble taking care of your child, family member or friend?: No Do you have trouble with day-to-day activities such as bathing, preparing meals, shopping, managing finances, etc.?: No Are you currently unemployed and looking for a job?: No Are you interested in more education?: No Please select the resources that you would like help with: None Currently or been in a relationship where the following occur: No concerns reported THRIVE Score: 0 AUDIT C Alcohol Use Questionnaire (AUDIT-C) 1. How often do you have a drink containing alcohol?: Never 3. How often do you have six or more drinks on one occasion?: Never Total Score: 0 Score Reviewed/Action Taken: No ERASTO-7 AMB Questionnaire ERASTO-7 Date ERASTO - 7 assessed: 11/09/24 Feeling nervous, anxious, or on edge: 0 = Not at all Not being able to stop or control worryin = Not at all Worrying too much about different things: 0 = Not at all Trouble relaxin = Not at all Being so restless that it is hard to sit still: 0 = Not at all Becoming easily annoyed or irritable: 0 = Not at all Feeling afraid as if something awful might happen: 0 = Not at all Total ERASTO-7 score (0-4 normal; 5-9 mild; 10-14 moderate; 15-21 severe): 0 Source: Developed by Drs. Serg Cardoso, Cat Bautista, Hema Butt and colleagues, with an educational cecy from [employer]. ERASTO-7 Assessment Billing ERASTO-7 Assessment Tool: ERASTO-7 Assessment 36962 Review of Systems Const Details: - Cardiovascular: Reports atrial fibrillation, denies chest pain, palpitations, or shortness of breath - Genitourinary: Reports hematuria, denies abdominal discomfort, fever, nausea, vomiting, or chills - Musculoskeletal: Reports spasms during hospitalization - General: Reports feeling better but not 100% All systems reviewed & are unremarkable except as noted in HPI and below Physical exam (Primary Care) Vital Signs: Last Vital Signs Temp 97.3 F 12/05/24 10:31 Pulse 51 12/05/24 10:31 Resp 16 12/05/24 10:31 BP 107/61 12/05/24 10:31 Pulse Ox 97 12/05/24 10:31 Oxygen Delivery Method Room Air 12/05/24 10:31 Vitals signs have been reviewed. Care Plan Goal for BP management: <140/90 at goal BMI Assessment/Plan discussion: High BMI High, discussed plan: lifestyle, weight reduction, dietary, physical activity, alcohol moderation and other Tobacco/Smoking Status: Tobacco use Status Tobacco use date assessed 11/09/24 12/05/24 10:28 Patient Tobacco Use Status Current everyday Tobacco 12/05/24 10:28 Tobacco use type Cigarette 12/05/24 10:28 e-Cigarette/Vaping Use Never Used 12/05/24 10:28 PHQ-9: PHQ-9 Score PHQ-9: Total score 0 12/05/24 11:02 Depression Screening Interpretation: Negative Thrive Assessment: Date of Thrive Assessment Date Thrive assessed 11/17/24 12/05/24 10:28 Currently or been in a relationship where the following occur: No concerns reported Const Other: Appearance: Alert. Oriented X3. No acute distress. Head: Normal external exam. Normocephalic. Atraumatic. Eyes: Pupils are equal, round, and reactive to light. Extraocular movements intact. Conjunctiva and sclera normal. Eyelids normal. Ears: External auditory canal normal. Tympanic membranes normal. Throat: Pharynx normal. Uvula midline. Moist mucous membranes. Neck: Normal inspection. Neck supple. Full range of motion. No adenopathy. Thyroid Normal. No meningeal signs. No neck mass noted. Cardiovascular: Normal heart rate and rhythm. Heart sound normal. No murmurs noted. Pulses normal throughout. Respiratory: No respiratory distress. Painless inspiration. Breath sounds normal. No wheezes/rales/rhonchi noted. Chest nontender. No accessory muscle usage noted or decreased air movement noted. Abdomen: Soft and nontender. Bowel sounds normal in all 4 quadrants. No distention noted. No organomegaly noted. No visible injury noted. Back: No costovertebral angle tenderness. Full range of motion noted. Skin: Skin warm and dry. Normal skin color. Normal skin turgor. No rashes/lesions/lacerations noted. Extremities: No lower extremity edema. Extremities exhibit normal range of motion. Extremities nontender. Neuro: Oriented X 3. No motor deficit. No sensory deficit. Reflexes normal. Results Reviewed Results Reviewed: - Echocardiogram: Normal left ventricular size and systolic function, mild increased left ventricular wall thickening, normal right ventricular cavity size and systolic function - Urinalysis: Clear urine with no blood at discharge Coding Level of Care Code TCM High MDM <= 14 days Complex EM visit Add On G2211 Diagnoses Hospital discharge follow-up Z09 PAF (paroxysmal atrial fibrillation) I48.0 Gross hematuria R31.0 Hypokalemia E87.6 Hypertension I10 Type 2 diabetes mellitus with hemoglobin A1c goal of less than 7.0% E11.9 Nephrolithiasis N20.0 Bladder stones N21.0 UTI (urinary tract infection) N39.0 Additional Codes ERASTO-7 Assessment Billing - ERASTO-7 Assessment Tool: ERASTO-7 Assessment 40636 ([id number]) PHQ-9 - 18375 - PHQ-9 Billing: Yes ([id number]) Assessment & Plan Assessment & Plan (1) Hospital discharge follow-up: Code(s): Z09 - Encounter for follow-up examination after completed treatment for conditions other than malignant neoplasm Category: Medical (2) PAF (paroxysmal atrial fibrillation): Code(s): I48.0 - Paroxysmal atrial fibrillation Category: Medical Plan: The patient was diagnosed with new-onset atrial fibrillation with rapid ventricular response during hospitalization. He was treated with intravenous metoprolol and digoxin, and upon stabilization, was discharged on oral digoxin and metoprolol succinate. Follow-up with cardiology is recommended to monitor atrial fibrillation and consider the initiation of anticoagulation therapy once hematuria is resolved. (3) Gross hematuria: Code(s): R31.0 - Gross hematuria Category: Medical Plan: The patient presented with gross hematuria, which resolved during hospitalization after urological intervention. Follow-up with urology is recommended to evaluate the bladder mass and determine the need for cystoscopy. (4) Hypokalemia: Code(s): E87.6 - Hypokalemia Category: Medical Plan: The patient experienced acute hypokalemia during hospitalization, which resolved before discharge. No further intervention is required at this time. (5) Hypertension: Code(s): I10 - Essential (primary) hypertension Category: Medical Plan: The patient's hypertension is managed with metoprolol succinate, and blood pressure control is essential to prevent further cardiac complications. Patient was referred to Cardiology for sooner appointment. (6) Type 2 diabetes mellitus with hemoglobin A1c goal of less than 7.0%: Code(s): E11.9 - Type 2 diabetes mellitus without complications Category: Medical Plan: The patient's type 2 diabetes mellitus is managed with metformin and a sliding scale insulin regimen during hospitalization. The patient resumed baseline medications upon discharge, and regular monitoring of blood glucose levels is advised. (7) Nephrolithiasis: Code(s): N20.0 - Calculus of kidney Category: Medical Plan: The patient has a history of nephrolithiasis and bladder stones, which contributed to the hematuria. Urological follow-up is necessary to monitor and manage these conditions. (8) Bladder stones: Code(s): N21.0 - Calculus in bladder Category: Medical Plan: The patient has a history of nephrolithiasis and bladder stones, which contributed to the hematuria. Urological follow-up is necessary to monitor and manage these conditions. (9) UTI (urinary tract infection): Code(s): N39.0 - Urinary tract infection, site not specified Category: Medical Plan: UA performed in office revealed leukocytes 15 leukocytes, negative nitrates, +1 uro, positive protein +1, pH was 6.0 there was no blood specific gravity was 1.025 ketones present bilirubin present at 1+ glucose negative. Patient with UTI will be started on ciprofloxacin 500 mg b.i.d. for the next 3 days. Urology referral was placed. Plan Plan Patient was informed and verbally consented to the use of an ambient scribe for clinic note documentation during this visit. 1. Atrial Fibrillation The patient was diagnosed with new-onset atrial fibrillation with rapid ventricular response during hospitalization. He was treated with intravenous metoprolol and digoxin, and upon stabilization, was discharged on oral digoxin and metoprolol succinate. Follow-up with cardiology is recommended to monitor atrial fibrillation and consider the initiation of anticoagulation therapy once hematuria is resolved. 2. Gross Hematuria The patient presented with gross hematuria, which resolved during hospitalization after urological intervention. Follow-up with urology is recommended to evaluate the bladder mass and determine the need for cystoscopy. 3. Hypokalemia The patient experienced acute hypokalemia during hospitalization, which resolved before discharge. No further intervention is required at this time. 4. Hypertension The patient's hypertension is managed with metoprolol succinate, and blood pressure control is essential to prevent further cardiac complications. 5. Type 2 Diabetes Mellitus The patient's type 2 diabetes mellitus is managed with metformin and a sliding scale insulin regimen during hospitalization. The patient resumed baseline medications upon discharge, and regular monitoring of blood glucose levels is advised. 6. Nephrolithiasis And Bladder Stones The patient has a history of nephrolithiasis and bladder stones, which contributed to the hematuria. Urological follow-up is necessary to monitor and manage these conditions. I discussed with the patient the importance of following up with cardiology to monitor atrial fibrillation and the potential need for anticoagulation therapy once hematuria is resolved. We also talked about the necessity of urological follow-up to evaluate the bladder mass and determine the need for cystoscopy. The patient was advised to continue taking prescribed medications, including metoprolol and digoxin, and to monitor his heart rate regularly. Orders: Orders UA CC w/rflx Micro + Cult Today N20.0 - Calculus of kidney, N20.1 - Calculus of ureter, N21.0 - Calculus in bladder, N32.89 - Other specified disorders of bladder, N40.0 - Benign prostatic hyperplasia without lower urinary tract symptoms, R31.0 - Gross hematuria, R39.89 - Other symptoms and signs involving the genitourinary system, R97.20 - Elevated prostate specific antigen [PSA] Referrals Urology Referral N20.0 - Calculus of kidney, N20.1 - Calculus of ureter, N21.0 - Calculus in bladder, N32.89 - Other specified disorders of bladder, N40.0 - Benign prostatic hyperplasia without lower urinary tract symptoms, R31.0 - Gross hematuria, R39.89 - Other symptoms and signs involving the genitourinary system, R97.20 - Elevated prostate specific antigen [PSA] Medications: New ciprofloxacin HCl 500 mg PO BID 6 tabs 0RF 3 days Patient Instructions: - Follow up with cardiology to monitor atrial fibrillation and discuss anticoagulation therapy. - Schedule an appointment with urology to evaluate the bladder mass and discuss the need for cystoscopy. - Continue taking prescribed medications, including metoprolol and digoxin, as directed. - Monitor heart rate regularly and report any irregularities. - Maintain regular follow-up appointments with primary care provider.
[2024-12-05 10:31] VITALS: BP 107/61; PULSE 51; RESP 16; TEMP 36.3; O2SAT 97
== END 2024-12-05 11:14 | disposition home or self-care (01) ==
LOC: HO.HMCSH 10:23
PROVIDERS: PCP Internal Medicine; Visit Provider Physician Assistant Medical
DX: I48.0 Paroxysmal atrial fibrillation (principal); E11.9 Type 2 diabetes mellitus without complications; Z09 Encounter for follow-up examination after completed treatment for conditions other than malignant neoplasm; R31.0 Gross hematuria; E87.6 Hypokalemia; I10 Essential (primary) hypertension; N20.0 Calculus of kidney; N21.0 Calculus in bladder; N39.0 Urinary tract infection, site not specified

== ENCOUNTER → 2024-12-05 10:23 | Outpatient (BNVA) | payer MEDICARE, SELFPAY | PROVIDERS: PCP Internal Medicine; Visit Provider Physician Assistant Medical | DX: E11.9 Type 2 diabetes mellitus without complications (principal); I48.91 Unspecified atrial fibrillation; I48.0 Paroxysmal atrial fibrillation; R31.0 Gross hematuria; E87.6 Hypokalemia; I10 Essential (primary) hypertension; N20.0 Calculus of kidney; N21.0 Calculus in bladder; N39.0 Urinary tract infection, site not specified; Z09 Encounter for follow-up examination after completed treatment for conditions other than malignant neoplasm | CPT/HCPCS: 96127; 99495 ==

== ENCOUNTER 2025-03-01 13:01 | Outpatient (AMB) | payer MEDICARE, SELFPAY ==
[2025-03-01 13:06] VITALS: BP 158/77; PULSE 74; RESP 14; TEMP 36.5; O2SAT 97; BMI 30.8
--- NOTE | 2025-03-01 13:06 | A.OFFPC_ITS ---
Vital Signs 03/01/25 13:06 Height 5 ft 9.75 in Weight 213 lb BMI 30.8 BP 158/77 H Blood Pressure Location Rt brachial Position Sitting Respiration 14 Pulse 74 Pulse Source Pulse Oximeter Temp 97.7 F Temp Source Temporal Artery Scan Pulse Oximetry (%) 97 Oxygen Delivery Method Room Air Intake Visit Reasons: 3 month follow up Electroencephalographic Technologist Required: No Accompanied by: Self / Same As Patient Allergies adhesive tape Adverse Reaction (Verified 03/01/25 13:46) blisters Medication List - Last Reconciled 03/01/25 by Bianca Stroud PA-C alcohol swabs (Alcohol Pads) 1 pad topical TIDWMEAL blood sugar diagnostic (FreeStyle Lite Strips) Check glucose 3 times a day with meals blood-glucose meter (FreeStyle Lite Meter kit) Check glucose 3 times a day with meals cholecalciferol (vitamin D3) 50 mcg PO DAILY lancets (FreeStyle Lancets) Check glucose 3 times a day with meals lisinopril 10 mg PO DAILY magnesium 200 mg PO Q48H metformin ER (Glucophage XR) 500 mg PO DAILY metoprolol succinate ER (Toprol XL) 100 mg PO DAILY 90 days vitamin B complex 1 cap PO Q48H Tobacco use date assessed: 11/09/24 Dental Screening Dental Screen Date: 11/09/24 HPI 3 month follow up HPI Details 79-year-old male presenting for an annua l physical exam. Patient has a past medical history of type 2 diabetes currently on no medications last A1c was in 2023 with his old provider [facility] it was at 6.2 on 11/03/2023. Past medical history of hypertension currently on no medication. Reporting that he also would like to be restarted on metformin due to it helped him with weight loss in the past. He reports he has diet is not the best. He recently had a Cologuard within the past year which was negative he reports. He denies any recent falls in the past year. He was hospitalized on 12/05/2024 for atrial fibrillation, hematuria, hypertension, type 2 diabetes, bladder stones and UTI. He has not been hospitalized since then. He reports he is able to perform all his ADLs at home. He denies any chest pain, shortness of breath, black or bloody stools, unintentional weight loss, urinary frequency or urgency, dysuria, polydipsia, poly urea or any other symptoms complaints or concerns at this time. Social History: Patient lives alone at home able to perform all ADLs. Not interested in any [employer] or [facility] services at this time. [facility] Medical History (Updated 03/01/25 @ 14:22 by Bianca Stroud PA-C) Annual physical exam UTI (urinary tract infection) Hypokalemia Hospital discharge follow-up Bladder calculus Vitamin D deficiency Type 2 diabetes mellitus with hemoglobin A1c goal of less than 7.0% Insomnia Heart murmur PSA elevation Encounter for colorectal cancer screening using Cologuard test (~08/31/22) Type 2 diabetes mellitus Essential tremor Tubular adenoma BPH (benign prostatic hyperplasia) Ureteral stone History of rib fracture Lumbar herniated disc Fifi-Schlatter's disease Mild hypercholesterolemia Hypertension Surgical History History of colonoscopy (~04/20/16) History of prostate surgery Family History Father No problems noted. Mother No problems noted. Social History Household Members: None Housing: Other Housing Other:: mobile home Do you presently have visiting nurse or other home services: No Alcohol intake: current Alcohol intake frequency: does not drink Patient Tobacco Use Status: Current everyday Tobacco user Tobacco use type: Cigarette Cigarette Packs Per Day: 0.5 Cigarettes Per Day: 10.0 e-Cigarette/Vaping Use: Never Used Second Hand Smoke Exposure: No Substance Use Type: Marijuana service: No Current occupational status: retired Cognitive needs: No Hearing needs: No Vision needs: No Questionnaire PHQ-9 Over the last 2 weeks, how often have you been bothered by any of the following problems? 1. Little interest or pleasure in doing things: not at all 2. Feeling down, depressed, or hopeless: not at all 3. Trouble falling or staying asleep, or sleeping too much: not at all 4. Feeling tired or having little energy: not at all 5. Poor appetite or overeating: not at all 6. Feeling bad about yourself - or that you are a failure or have let yourself or your family down: not at all 7. Trouble concentrating on things, such as reading the newspaper or watching television: not at all 8. Moving or speaking so slowly that other people could have noticed. Or the opposite - being so fidgety or restless that you have been moving around a lot more than usual: not at all 9. Thoughts that you would be better off or of hurting yourself in some way: not at all Total score: 0 Depression Screening Interpretation: Negative Depression Screening Done: Yes 58388 - PHQ-9 Billing: Yes Source: Developed by Drs. Serg Cardoso, Cat Bautista, Hema Butt and colleagues, with an educational cecy from [employer]. Thrive Questionnaire Date Thrive assessed: 11/17/24 I am a: Patient What is your living situation today?: I have a steady place to live Within the past 12 months, did the food you bought not last and you didn't have the money to get more?: Never true Within the past 12 months, did you worry whether your food would run out before you got money to buy more?: Never true Do you have trouble paying for medicines?: No Do you have trouble getting transportation to medical appointments?: No Do you have trouble paying your heating and electricity bill?: No Do you have trouble taking care of your child, family member or friend?: No Do you have trouble with day-to-day activities such as bathing, preparing meals, shopping, managing finances, etc.?: No Are you currently unemployed and looking for a job?: No Are you interested in more education?: No Please select the resources that you would like help with: None Currently or been in a relationship where the following occur: No concerns reported THRIVE Score: 0 AUDIT C Alcohol Use Questionnaire (AUDIT-C) 1. How often do you have a drink containing alcohol?: Never 3. How often do you have six or more drinks on one occasion?: Never Total Score: 0 Score Reviewed/Action Taken: No ERASTO-7 AMB Questionnaire ERASTO-7 Date ERASTO - 7 assessed: 11/09/24 Feeling nervous, anxious, or on edge: 0 = Not at all Not being able to stop or control worryin = Not at all Worrying too much about different things: 0 = Not at all Trouble relaxin = Not at all Being so restless that it is hard to sit still: 0 = Not at all Becoming easily annoyed or irritable: 0 = Not at all Feeling afraid as if something awful might happen: 0 = Not at all Total ERASTO-7 score (0-4 normal; 5-9 mild; 10-14 moderate; 15-21 severe): 0 Source: Developed by Drs. Serg Cardoso, Cat Bautista, Hema Butt and colleagues, with an educational cecy from [employer]. ERASTO-7 Assessment Billing ERASTO-7 Assessment Tool: ERASTO-7 Assessment 18104 Review of Systems Const All systems reviewed & are unremarkable except as noted in HPI and below Physical exam (Primary Care) Vital Signs: Last Vital Signs Temp 97.7 F 03/01/25 13:06 Pulse 74 03/01/25 13:06 Resp 14 03/01/25 13:06 BP 158/77 H 03/01/25 13:06 Pulse Ox 97 03/01/25 13:06 Oxygen Delivery Method Room Air 03/01/25 13:06 Care Plan Goal for BP management: <140/90 patient will be started on lisinopril 10 mg daily BMI result Body Mass Index 30.8 BMI Assessment/Plan discussion: High BMI High, discussed plan: lifestyle, weight reduction, dietary, physical activity, alcohol moderation and other Tobacco/Smoking Status: Tobacco use Status Tobacco use date assessed 11/09/24 03/01/25 13:11 Patient Tobacco Use Status Current everyday Tobacco 03/01/25 13:11 Tobacco use type Cigarette 03/01/25 13:11 e-Cigarette/Vaping Use Never Used 03/01/25 13:11 PHQ-9: PHQ-9 Score PHQ-9: Total score 0 03/01/25 13:26 Depression Screening Interpretation: Negative Thrive Assessment: Date of Thrive Assessment Date Thrive assessed 11/17/24 03/01/25 13:11 Currently or been in a relationship where the following occur: No concerns reported Const Other: Appearance: Alert. Oriented X3. No acute distress. Head: Normal external exam. Normocephalic. Atraumatic. Eyes: Pupils are equal, round, and reactive to light. Extraocular movements intact. Conjunctiva and sclera normal. Eyelids normal. Throat: Pharynx normal. Uvula midline. Moist mucous membranes. Neck: Normal inspection. Neck supple. Full range of motion. No adenopathy. No meningeal signs. No neck mass noted. Cardiovascular: Normal heart rate and rhythm. Heart sound normal. No murmurs noted. Pulses normal throughout. Respiratory: No respiratory distress. Painless inspiration. Breath sounds normal. No wheezes/rales/rhonchi noted. No accessory muscle usage noted or decreased air movement noted. Abdomen: Soft and nontender. No distention noted. No organomegaly noted. Back: Full range of motion noted. Skin: Skin warm and dry. Normal skin color. Normal skin turgor. No rashes/lesions/lacerations noted. Extremities: No lower extremity edema. Extremities exhibit normal range of motion. Results AMB Hemoglobin A1c AMB Hemoglobin A1c 7.7 % Last Edit by SB Ribeiro on 03/01/25 13:27 Results Reviewed Results Reviewed: Laboratory Last Values Hgb A1c (Clinic) 7.7 % (4.0-6.0) H 03/01/25 13:26 - Echocardiogram: Normal left ventricular size and systolic function, mild increased left ventricular wall thickening, normal right ventricular cavity size and systolic function - Urinalysis: Clear urine with no blood at discharge - patient had labs on 11/22/2024 which revealed a normal CBC. Normal sodium, potassium, kidneys. Mild elevation or random glucose therefore hemoglobin A1c performed today revealed 7.7 hemoglobin A1c. - Patient had labs ordered at this time and he will have to go fasting for these labs. Patient understands. Coding Level of Care Code Est Pt Level 4 (73298) Est Pt Prev Care >65y(93205) Diagnoses Annual physical exam Z00.00 Hypertension I10 Type 2 diabetes mellitus with hemoglobin A1c goal of less than 7.0% E11.9 Additional Codes ERASTO-7 Assessment Billing - ERASTO-7 Assessment Tool: ERASTO-7 Assessment 58796 ([id number]) PHQ-9 - 91272 - PHQ-9 Billing: Yes ([id number]) Time Spent (min) 60 Assessment & Plan Assessment & Plan (1) Annual physical exam: Code(s): Z00.00 - Encounter for general adult medical examination without abnormal findings Category: Medical Plan: Fasting labs ordered which include CBC, CMP, magnesium, PSA, TSH, lipid panel, UA, urine creatinine, A1c. Patient to go fasting. (2) Hypertension: Code(s): I10 - Essential (primary) hypertension Category: Medical Plan: Patient will be started on lisinopril 10 mg and return in 1 month for blood pressure check. (3) Type 2 diabetes mellitus with hemoglobin A1c goal of less than 7.0%: Code(s): E11.9 - Type 2 diabetes mellitus without complications Category: Medical Plan: Patient will be restarted on metformin 500 mg extended release. Return in 1 month for adherence and to assess side effects Plan Patient had a normal physical exam for his annual today. For his hypertension: Patient will be started on lisinopril 10 mg and return in 1 month for blood pressure check Type 2 diabetes with hemoglobin A1c goal of less than 7: Hemoglobin A1c 7.7 today patient will be restarted on metformin 500 mg extended release and return in 1 month for adherence to assess side effects. Orders: Orders Microalbumin, Random (w Creat) Today E11.9 - Type 2 diabetes mellitus without complications AMB Hemoglobin A1c Today E11.9 - Type 2 diabetes mellitus without complications Medications: New lisinopril 10 mg PO DAILY 90 tabs 3RF blood-glucose meter (FreeStyle Lite Meter kit) Check glucose 3 times a day with meals 1 ea 3RF E11.9 - Type 2 diabetes mellitus without complications blood sugar diagnostic (FreeStyle Lite Strips) Check glucose 3 times a day with meals 100 ea 1RF E11.9 - Type 2 diabetes mellitus without complications lancets (FreeStyle Lancets) Check glucose 3 times a day with meals 100 ea 3RF E11.9 - Type 2 diabetes mellitus without complications alcohol swabs (Alcohol Pads) 1 pad topical TIDWMEAL 100 ea 1RF metformin ER (Glucophage XR) 500 mg PO DAILY 90 tabs 3RF Patient Instructions: Patient is instructed to get fasting blood work Patient instructed to start metformin 500 mg for type 2 diabetes Patient to improve his diet and exercise regimen and monitor his blood glucose 3 times a day freestyle Lite machine sent to his pharmacy Patient blood pressure elevated today will be started on lisinopril 10 mg and return in 1 month for blood pressure check
== END 2025-03-01 13:43 | disposition home or self-care (01) ==
LOC: HO.HMCSH 13:01
PROVIDERS: PCP Internal Medicine; Visit Provider Physician Assistant Medical
DX: Z00.00 Encounter for general adult medical examination without abnormal findings (principal); I10 Essential (primary) hypertension; E11.9 Type 2 diabetes mellitus without complications

== ENCOUNTER → 2025-03-01 13:01 | Outpatient (BNVA) | payer MEDICARE, SELFPAY | PROVIDERS: PCP Internal Medicine; Visit Provider Physician Assistant Medical | DX: Z00.00 Encounter for general adult medical examination without abnormal findings (principal); I10 Essential (primary) hypertension; E11.9 Type 2 diabetes mellitus without complications | CPT/HCPCS: 83036; 96127; 99212; 99397 ==